=== PATIENT | female | born 1935 | race Caucasian/White ===

== ENCOUNTER 2017-02-19 18:23 | Inpatient (IN) | payer MEDICARE, OTHER ==
[~2017-02-19] VITALS: Ht 167.6 cm; Wt 48.2 kg
[~2017-02-19 18:23] MED LIST: ACET500T68 PO; CARB1TAB2 PO; CHOL10002 PO; ELTA TP; LORA10TA68 PO; MAGN400O7 PO; MULT1TAB52 PO; Metoprolol Tartrate PO; OMEP20TA8 PO; POLY15DR27 OP; RISP1TAB3 PO; Vancomycin Hcl PO; [UNRECOGNIZED DRUG - OTHER] PO
[2017-02-19] MEDS ORDERED: IV NORMAL SALINE 1000ML BAG 1,000 ML IV SCH (19:00)
[2017-02-19 19:06] LABS: BASO % 0 % (0-3); EOS % 0 % (0-3); HEMATOCRIT 38.6 % (36.0-47.0); LYMPH # 0.6 x10^3/uL (1.0-4.8); LYMPH % 3 % (24-48); MEAN CORPUSCULAR HEMOGLOBIN 28 pg (25-35); MEAN CORPUSCULAR HGB CONC 31 g/dL (31-37); MEAN CORPUSCULAR VOLUME 90 fL (79-100); MONO % 7 % (0-9); NEUT % 89 % (31-73); PLATELET COUNT 375 x10^3/uL (140-400); RED BLOOD COUNT 4.31 x10^6/uL (3.50-5.40); RED CELL DISTRIBUTION WIDTH 14.2 % (11.5-14.5); WHITE BLOOD COUNT 16.7 x10^3/uL (4.0-11.0)
[2017-02-19 19:18] LABS: CALCIUM 9.2 mg/dL (8.5-10.1); GFR 23.8
[2017-02-19 19:29] LABS: BILIRUBIN,URINE NEGATIVE (NEG); GLUCOSE,URINE NEGATIVE (NEG); NITRITE,URINE NEGATIVE (NEG); PROTEIN,URINE NEGATIVE (NEG-TRACE); UROBILINOGEN,URINE 0.2 mg/dL (0.2 mg/dL)
[2017-02-19 19:38] LABS: BACTERIA,URINE MOD /HPF (0-FEW); RBC,URINE 0 /HPF (0-2); SQUAMOUS EPITHELIAL CELL,UR MOD /LPF
[2017-02-19 19:45] LABS: OVALOCYTES OCC; PLT ESTIMATE ADEQUATE (ADEQUATE); POLYCHROMASIA SLIGHT
[2017-02-19 19:46] LABS: SCHISTOCYTES OCC
[2017-02-19] MEDS ORDERED: ACETAMINOPHEN 650 MG SUPP.RECT. PR ONE (20:00)
[2017-02-19] MEDS ORDERED: CEFEPIME HCL 1 GM in IV DEXTROSE 5% 100 ML IV ONE (20:15)
[2017-02-19] MEDS ORDERED: VANCOMYCIN 1.25 GM in IV DEXTROSE 5% 250 ML IV ONE (20:15)
[2017-02-19] MEDS ORDERED: IV NORMAL SALINE 1000ML BAG 1,000 ML IV ONE (20:15)
--- NOTE | 2017-02-19 20:22 | PHYS DOC ---
Past Medical History Past Medical History: Anxiety, Dementia, GERD, Hypertension, Other Additional Past Medical Histor: insomnia, Parkinsons, Rhabdomyolsis Past Surgical History: No Surgical History Additional Past Surgical Histo: denies Alcohol Use: None Drug Use: None Adult General Chief Complaint Chief Complaint: SHORTNESS OF BREATH [facility] ED 1-year-old female sent for evaluation of suspected aspiration. Apparently patient gagged on some food while eating after which she was hypoxic and tachypnea. Low-grade fever on arrival Review of Systems Review of Systems Constitutional: Denies fever or chills [] Eyes: Denies change in visual acuity, redness, or eye pain [] HENT: Denies nasal congestion or sore throat [] Respiratory: Denies cough or shortness of breath [] Cardiovascular: No additional information not addressed in HPI [] GI: Denies abdominal pain, nausea, vomiting, bloody stools or diarrhea [] : Denies dysuria or hematuria [] Musculoskeletal: Denies back pain or joint pain [] Integument: Denies rash or skin lesions [] Neurologic: Denies headache, focal weakness or sensory changes [] Endocrine: Denies polyuria or polydipsia [] Current Medications Current Medications Current Medications Medications (Trade) Dose Ordered Sig/Litzy Start Time Stop Time Status Last Admin Dose Admin Acetaminophen (Acetaminophen Supp) 650 mg 1X ONCE 02/19/17 20:00 02/19/17 20:07 DC 02/19/17 20:20 650 MG Cefepime HCl 1 gm/ Dextrose 100 ml @ 200 mls/hr 1X ONCE 02/19/17 20:15 02/19/17 20:44 DC 02/19/17 20:20 200 MLS/HR Clindamycin Phosphate 50 ml @ 100 mls/hr 1X ONCE 02/19/17 20:30 02/20/17 09:10 DC 02/19/17 20:30 100 MLS/HR Sodium Chloride 1,000 ml @ 150 mls/hr 1X ONCE 02/19/17 20:15 02/20/17 02:54 DC 02/19/17 22:09 150 MLS/HR Vancomycin HCl (Vanco Per Pharmacy) 1 each PRN DAILY PRN 02/19/17 20:00 02/20/17 09:10 DC 02/20/17 01:14 1 EACH Vancomycin HCl 1.25 gm/Dextrose 250 ml @ 166.667 mls/hr 1X ONCE 02/19/17 20:15 02/19/17 21:44 DC 02/19/17 21:37 166.667 MLS/HR Allergies Allergies Allergies Coded Allergies Type Severity Reaction Last Updated Verified I S O L A T I O N *CONTACT* Allergy Unknown 01/26/15 Yes No Known Medication Allergies Allergy Unknown 01/26/15 Yes Physical Exam Physical Exam Chronically weak-appearing 81-year-old female no acute distress. Scattered rhonchi Constitutional: Well developed, well nourished, no acute distress, non-toxic appearance. [] HENT: Normocephalic, atraumatic, bilateral external ears normal, oropharynx moist, no oral exudates, nose normal. [] Eyes: PERRLA, EOMI, conjunctiva normal, no discharge. [] Neck: Normal range of motion, no tenderness, supple, no stridor. [] Cardiovascular:Heart rate regular rhythm, no murmur [] Lungs & Thorax: Bilateral breath sounds as above [] Abdomen: Bowel sounds normal, soft, no tenderness, no masses, no pulsatile masses. [] Skin: Warm, dry, no erythema, no rash. [] Back: No tenderness, no CVA tenderness. [] Extremities: No tenderness, no cyanosis, no clubbing, ROM intact, no edema. [] Neurologic: Alert and oriented X 3, normal motor function, normal sensory function, no focal deficits noted. [] Psychologic: Affect normal, judgement normal, mood normal. [] Current Patient Data Vital Signs Vital Signs Date Time Temp Pulse Resp B/P (MAP) Pulse Ox O2 Delivery O2 Flow Rate FiO2 02/19/17 20:30 96 114/56 (75) 94 Nasal Cannula 3.0 02/19/17 18:23 100.6 40 100.6 Lab Values Laboratory Tests Test 02/19/17 18:37 02/19/17 19:20 White Blood Count 16.7 x10^3/uL (4.0-11.0) H Red Blood Count 4.31 x10^6/uL (3.50-5.40) Hemoglobin 12.0 g/dL (12.0-15.5) Hematocrit 38.6 % (36.0-47.0) Mean Corpuscular Volume 90 fL (79-100) Mean Corpuscular Hemoglobin 28 pg (25-35) Mean Corpuscular Hemoglobin Concent 31 g/dL (31-37) Red Cell Distribution Width 14.2 % (11.5-14.5) Platelet Count 375 x10^3/uL (140-400) Neutrophils (%) (Auto) 89 % (31-73) H Lymphocytes (%) (Auto) 3 % (24-48) L Monocytes (%) (Auto) 7 % (0-9) Eosinophils (%) (Auto) 0 % (0-3) Basophils (%) (Auto) 0 % (0-3) Neutrophils # (Auto) 14.9 x10^3uL (1.8-7.7) H Lymphocytes # (Auto) 0.6 x10^3/uL (1.0-4.8) L Monocytes # (Auto) 1.2 x10^3/uL (0.0-1.1) H Eosinophils # (Auto) 0.0 x10^3/uL (0.0-0.7) Basophils # (Auto) 0.0 x10^3/uL (0.0-0.2) Segmented Neutrophils % 94 % (35-66) H Lymphocytes % 4 % (24-48) L Monocytes % 2 % (0-10) Platelet Estimate Adequate (ADEQUATE) Platelet Clumps, EDTA Present Large Platelets Occ Polychromasia Slight Ovalocytes Occ Schistocytes Occ Sodium Level 167 mmol/L (136-145) *H Potassium Level 5.0 mmol/L (3.5-5.1) Chloride Level 124 mmol/L (98-107) H Carbon Dioxide Level 30 mmol/L (21-32) Anion Gap 13 (6-14) Blood Urea Nitrogen 45 mg/dL (7-20) H Creatinine 2.0 mg/dL (0.6-1.0) H Estimated GFR (Cockcroft-Gault) 23.8 Glucose Level 207 mg/dL (70-99) H Lactic Acid Level 3.5 mmol/L (0.4-2.0) H Calcium Level 9.2 mg/dL (8.5-10.1) Troponin I Quantitative < 0.017 ng/mL (0.000-0.055) Thyroid Stimulating Hormone (TSH) 1.078 uIU/mL (0.358-3.74) Urine Color Yellow Urine Clarity Turbid Urine pH 5.0 Urine Specific [place] 1.020 Urine Protein Negative mg/dL (NEG-TRACE) Urine Glucose (UA) Negative mg/dL (NEG) Urine Ketones (Stick) Negative mg/dL (NEG) Urine Blood Negative (NEG) Urine Nitrite Negative (NEG) Urine Bilirubin Negative (NEG) Urine Urobilinogen Dipstick 0.2 mg/dL (0.2 mg/dL) Urine Leukocyte Esterase Trace (NEG) Urine RBC 0 /HPF (0-2) Urine WBC 1-4 /HPF (0-4) Urine Squamous Epithelial Cells Mod /LPF Urine Bacteria Mod /HPF (0-FEW) Laboratory Tests 02/19/17 18:37 Laboratory Tests 02/19/17 18:37 EKG EKG Normal sinus rhythm normal axis no STEMI [] Radiology/Procedures Radiology/Procedures Chest x-ray with left retrocardiac infiltrate interpreted by me. [] Course & Med Decision Making Course & Med Decision Making Pertinent Labs and Imaging studies reviewed. (See chart for details) History signs and symptoms consistent with pneumonia suspected aspiration pneumonia. Patient hemodynamically stable. X-ray with left retrocardiac infiltrate. Blood cultures drawn and an about a coverage for HCHP initiated. Clindamycin also added for aspiration coverage. Case discussed with hospitalist director of graduate admissions regarding inpatient admission to his service. Patient stable on reevaluation prior to admission [] Dragon Disclaimer Dragon Disclaimer This electronic medical record was generated, in whole or in part, using a voice recognition dictation system. Departure Departure Impression: Primary Impression: HCAP (healthcare-associated pneumonia) Disposition: ADMITTED INPATIENT Condition: STABLE Referrals: MIGNON MORALES (PCP) MAU HERNANDEZ MD Feb 19, 2017 20:22
[2017-02-19] MEDS ORDERED: CLINDAMYCIN 600 MG IV ONE (20:30)
[2017-02-19] MEDS ORDERED: CLINDAMYCIN 600MG PREMIX 50 ML IV ONE (20:30)
[2017-02-19] MEDS ORDERED: CEFEPIME HCL 1 GM in IV NORMAL SALINE 50ML 50 ML IV SCH (22:00)
[2017-02-19] MEDS ORDERED: ACETAMINOPHEN 500 MG TABLET PO PRN (22:15)
[2017-02-19] MEDS ORDERED: MAGNESIUM HYDROXIDE 2,400 MG/30 ML ORAL.SUSP. PO PRN (22:15)
--- NOTE | 2017-02-19 22:19 | PDOC1 ---
History and Physical Date of Admission Date of Admission DATE: 02/19/17 TIME: 22:14 Identification/Chief Complaint Chief Complaint SOA, weak, ms change Problems: History of Present Illness History of Present Illness Elderly w female who lives alone presented with SOA. Noted to have Pneumonia, sepsis, SIRS, Severe hyponatremia, ARF, Azotemia and metabolic encephalopathy. DW ER Doc Pt seen and examined Chart reviewed. Orders placed Reviewed home meds Plan is admit with IV NS and IV antibx , Nebs, O2 and Pulm consult Prognosis guarded. May need LTC after dc Dictation is still broken Total time 32 minutes Past Medical History Cardiovascular: HTN CENTRAL NERVOUS SYSTEM: Dementia, Other GI: GERD Psych: Anxiety Past Surgical History Past Surgical History: No pertinent history Family History Family History: Family History Unknown Social History ALCOHOL: none Drugs: None Current Medications Current Medications Current Medications Sodium Chloride 1,000 ml @ 100 mls/hr Q10H IV Last administered on 02/19/17 19 :20; Start 02/19/17 at 19:00; Stop 02/20/17 at 04:59 Cefepime HCl 1 gm/ Sodium Chloride 50 ml @ 100 mls/hr Q8HRS IV ; Start 02/19/17 at 22:00; Status UNV Vancomycin HCl (Vanco Per Pharmacy) 1 each PRN DAILY PRN MC SEE COMMENTS; Start 02/19/17 at 20:00 Acetaminophen (Acetaminophen Supp) 650 mg 1X ONCE ND Last administered on 20:20; Start 02/19/17 at 20:00; Stop 02/19/17 at 20:07; Status DC Vancomycin HCl 1.25 gm/Dextrose 250 ml @ 166.667 mls/hr 1X ONCE IV Last administered on 02/19/17 21:37; Start 02/19/17 at 20:15; Stop 02/19/17 at 21:44; Status DC Cefepime HCl 1 gm/ Dextrose 100 ml @ 200 mls/hr 1X ONCE IV Last administered on 02/19/17 20:20; Start 02/19/17 at 20:15; Stop 02/19/17 at 20:44; Status DC Sodium Chloride 1,000 ml @ 150 mls/hr 1X ONCE IV Last administered on 22:09; Start 02/19/17 at 20:15; Stop 02/20/17 at 02:54 Clindamycin Phosphate 480 ml @ 960 mls/hr 1X ONCE IV ; Start 02/19/17 at 20:30 ; Stop 02/19/17 at 20:59; Status UNV Clindamycin Phosphate 50 ml @ 100 mls/hr 1X ONCE IV Last administered on t 20:30; Start 02/19/17 at 20:30; Stop 02/19/17 at 20:59; Status DC Active Scripts Active [Metoprolol Tartrate] 25 MG Tablet 12.5 Mg PO BID Reported [Elta Cream] 1 TP BID Claritin (Loratadine) 10 Mg Tablet 1 Tab PO DAILY [Culterelle] 1 PO DAILY Vitamin D (Cholecalciferol (Vitamin D3)) 1,000 Unit Tablet 1,000 Unit PO DAILY Milk Of Magnesia (Magnesium Hydroxide) 400 Mg/5 Ml Oral.susp 400 Mg PO PRN PRN Artificial Tears (Polyvinyl Alcohol) 15 Ml Drops 15 Ml OP PRN Acetaminophen 500 Mg Tablet 650 Mg PO PRN Q4HRS PRN Multivitamins (Multivitamin) 1 Each Tablet 1 Tab PO DAILY Omeprazole 20 Mg Tablet.dr 1 Tab PO DAILY Risperidone 1 Mg Tablet 1 Tab PO BID Sinemet 25-100 Mg Tablet (Carbidopa/Levodopa) 1 Each Tablet 1 Tab PO TID Allergies Allergies: Coded Allergies: I S O L A T I O N *CONTACT* (Verified Allergy, Unknown, 01/26/15) mrsa + No Known Medication Allergies (Verified Allergy, Unknown, 01/26/15) Vitals Vitals Vital Signs Date Time Temp Pulse Resp B/P (MAP) Pulse Ox O2 Delivery O2 Flow Rate FiO2 02/19/17 18:23 100.6 108 40 108/53 (71) 91 Nasal Cannula 3.0 100.6 Labs Labs Laboratory Tests Test 02/19/17 18:37 02/19/17 19:20 White Blood Count 16.7 x10^3/uL (4.0-11.0) Red Blood Count 4.31 x10^6/uL (3.50-5.40) Hemoglobin 12.0 g/dL (12.0-15.5) Hematocrit 38.6 % (36.0-47.0) Mean Corpuscular Volume 90 fL (79-100) Mean Corpuscular Hemoglobin 28 pg (25-35) Mean Corpuscular Hemoglobin Concent 31 g/dL (31-37) Red Cell Distribution Width 14.2 % (11.5-14.5) Platelet Count 375 x10^3/uL (140-400) Neutrophils (%) (Auto) 89 % (31-73) Lymphocytes (%) (Auto) 3 % (24-48) Monocytes (%) (Auto) 7 % (0-9) Eosinophils (%) (Auto) 0 % (0-3) Basophils (%) (Auto) 0 % (0-3) Neutrophils # (Auto) 14.9 x10^3uL (1.8-7.7) Lymphocytes # (Auto) 0.6 x10^3/uL (1.0-4.8) Monocytes # (Auto) 1.2 x10^3/uL (0.0-1.1) Eosinophils # (Auto) 0.0 x10^3/uL (0.0-0.7) Basophils # (Auto) 0.0 x10^3/uL (0.0-0.2) Segmented Neutrophils % 94 % (35-66) Lymphocytes % 4 % (24-48) Monocytes % 2 % (0-10) Platelet Estimate Adequate (ADEQUATE) Platelet Clumps, EDTA Present Large Platelets Occ Polychromasia Slight Ovalocytes Occ Schistocytes Occ Sodium Level 167 mmol/L (136-145) Potassium Level 5.0 mmol/L (3.5-5.1) Chloride Level 124 mmol/L (98-107) Carbon Dioxide Level 30 mmol/L (21-32) Anion Gap 13 (6-14) Blood Urea Nitrogen 45 mg/dL (7-20) Creatinine 2.0 mg/dL (0.6-1.0) Estimated GFR (Cockcroft-Gault) 23.8 Glucose Level 207 mg/dL (70-99) Lactic Acid Level 3.5 mmol/L (0.4-2.0) Calcium Level 9.2 mg/dL (8.5-10.1) Troponin I Quantitative < 0.017 ng/mL (0.000-0.055) Thyroid Stimulating Hormone (TSH) 1.078 uIU/mL (0.358-3.74) Urine Color Yellow Urine Clarity Turbid Urine pH 5.0 Urine Specific [place] 1.020 Urine Protein Negative mg/dL (NEG-TRACE) Urine Glucose (UA) Negative mg/dL (NEG) Urine Ketones (Stick) Negative mg/dL (NEG) Urine Blood Negative (NEG) Urine Nitrite Negative (NEG) Urine Bilirubin Negative (NEG) Urine Urobilinogen Dipstick 0.2 mg/dL (0.2 mg/dL) Urine Leukocyte Esterase Trace (NEG) Urine RBC 0 /HPF (0-2) Urine WBC 1-4 /HPF (0-4) Urine Squamous Epithelial Cells Mod /LPF Urine Bacteria Mod /HPF (0-FEW) Laboratory Tests Test 02/19/17 18:37 02/19/17 19:20 White Blood Count 16.7 x10^3/uL (4.0-11.0) Red Blood Count 4.31 x10^6/uL (3.50-5.40) Hemoglobin 12.0 g/dL (12.0-15.5) Hematocrit 38.6 % (36.0-47.0) Mean Corpuscular Volume 90 fL (79-100) Mean Corpuscular Hemoglobin 28 pg (25-35) Mean Corpuscular Hemoglobin Concent 31 g/dL (31-37) Red Cell Distribution Width 14.2 % (11.5-14.5) Platelet Count 375 x10^3/uL (140-400) Neutrophils (%) (Auto) 89 % (31-73) Lymphocytes (%) (Auto) 3 % (24-48) Monocytes (%) (Auto) 7 % (0-9) Eosinophils (%) (Auto) 0 % (0-3) Basophils (%) (Auto) 0 % (0-3) Neutrophils # (Auto) 14.9 x10^3uL (1.8-7.7) Lymphocytes # (Auto) 0.6 x10^3/uL (1.0-4.8) Monocytes # (Auto) 1.2 x10^3/uL (0.0-1.1) Eosinophils # (Auto) 0.0 x10^3/uL (0.0-0.7) Basophils # (Auto) 0.0 x10^3/uL (0.0-0.2) Segmented Neutrophils % 94 % (35-66) Lymphocytes % 4 % (24-48) Monocytes % 2 % (0-10) Platelet Estimate Adequate (ADEQUATE) Platelet Clumps, EDTA Present Large Platelets Occ Polychromasia Slight Ovalocytes Occ Schistocytes Occ Sodium Level 167 mmol/L (136-145) Potassium Level 5.0 mmol/L (3.5-5.1) Chloride Level 124 mmol/L (98-107) Carbon Dioxide Level 30 mmol/L (21-32) Anion Gap 13 (6-14) Blood Urea Nitrogen 45 mg/dL (7-20) Creatinine 2.0 mg/dL (0.6-1.0) Estimated GFR (Cockcroft-Gault) 23.8 Glucose Level 207 mg/dL (70-99) Lactic Acid Level 3.5 mmol/L (0.4-2.0) Calcium Level 9.2 mg/dL (8.5-10.1) Troponin I Quantitative < 0.017 ng/mL (0.000-0.055) Thyroid Stimulating Hormone (TSH) 1.078 uIU/mL (0.358-3.74) Urine Color Yellow Urine Clarity Turbid Urine pH 5.0 Urine Specific [place] 1.020 Urine Protein Negative mg/dL (NEG-TRACE) Urine Glucose (UA) Negative mg/dL (NEG) Urine Ketones (Stick) Negative mg/dL (NEG) Urine Blood Negative (NEG) Urine Nitrite Negative (NEG) Urine Bilirubin Negative (NEG) Urine Urobilinogen Dipstick 0.2 mg/dL (0.2 mg/dL) Urine Leukocyte Esterase Trace (NEG) Urine RBC 0 /HPF (0-2) Urine WBC 1-4 /HPF (0-4) Urine Squamous Epithelial Cells Mod /LPF Urine Bacteria Mod /HPF (0-FEW) VTE Prophylaxis Ordered VTE Prophylaxis Devices: Yes VTE Pharmacological Prophylaxi: Yes TANG CALI III DO Feb 19, 2017 22:19
[2017-02-19 23:30] VITALS: BP 115/53
[2017-02-20] MEDS: VANCOMYCIN PER PHARMACY MC PRN ×2 (01:13→01:14)
[2017-02-20] MEDS ORDERED: POLY17PO29 PO (03:05)
[2017-02-20] MEDS ORDERED: METO25TA4 PO (03:05)
[2017-02-20] MEDS ORDERED: RISP0.5T24 PO (03:05)
[2017-02-20 03:35] VITALS: BP 107/41
[2017-02-20 05:45] LABS: BASO % 0 % (0-3); EOS % 0 % (0-3); HEMATOCRIT 30.5 % (36.0-47.0); HEMOGLOBIN 9.7 g/dL (12.0-15.5); LYMPH # 1.2 x10^3/uL (1.0-4.8); LYMPH % 12 % (24-48); MEAN CORPUSCULAR HEMOGLOBIN 28 pg (25-35); MEAN CORPUSCULAR HGB CONC 32 g/dL (31-37); MEAN CORPUSCULAR VOLUME 88 fL (79-100); MONO % 11 % (0-9); NEUT % 77 % (31-73); PLATELET COUNT 254 x10^3/uL (140-400); RED BLOOD COUNT 3.47 x10^6/uL (3.50-5.40); RED CELL DISTRIBUTION WIDTH 14.1 % (11.5-14.5); WHITE BLOOD COUNT 10.5 x10^3/uL (4.0-11.0)
[2017-02-20 05:57] LABS: CALCIUM 7.6 mg/dL (8.5-10.1); CREATININE 1.3 mg/dL (0.6-1.0); GFR 39.1
--- NOTE | 2017-02-20 06:21 | EKG ---
[facility] [address] [place] [address] Test Date: 2017-02-19 Test Time: 18:34:04 Pat Name: MARGIE BISWAS Department: Room: Gender: F Disability Attorney: : 1935 Requested By: MAU HERNANDEZ Order Number: [id number] Reading MD: Measurements Intervals [place] Rate: 107 P: 45 UT: 112 QRS: -34 QRSD: 66 T: 24 QT: 314 QTc: 424 Interpretive Statements SINUS TACHYCARDIA LEFT ATRIAL ABNORMALITY ABNORMAL LEFT AXIS DEVIATION LEFT ANTERIOR FASCICULAR BLOCK RI6.01 Unconfirmed report No previous ECG available for comparison
[2017-02-20] MEDS: IV 1/2 NORMAL SALINE 1,000 ML IV SCH ×2 (06:30→16:30)
[2017-02-20 07:00] VITALS: BP 103/45
[2017-02-20] MEDS: PANTOPRAZOLE 40 MG TABLET.DR. PO SCH (07:30)
--- NOTE | 2017-02-20 08:27 | PDOC2 ---
CONSULT Date of Consult Date of Consult DATE: 02/20/17 TIME: 08:21 Reason for Consult Reason for Consult: ^Na and CHANDU Referring Physician Referring Physician: Dr perez Identification/Chief Complaint Chief Complaint SOB per ER Note Problems: Source Source: Chart review, Patient History of Present Illness Reason for Visit: ^Na - onset: unkonwn but presumed recent, Severity: enough to presumably contribute to AMS: worsened by Pn/ Illness and poor PO itnake: Location: labs CHANDU: onset: unkonwn but presumed recent; Severity: improving; improved by IVF; worsened by Pn/ Illness and poor PO itnake: Baseline creat was 0.9 in 2014 Lacitic Acidosis - POA, onset acute; improve with vol repletion SIRS - with Presumed Pn as noted on CXR, Assowith AMS and SOB Past Medical History Cardiovascular: HTN CENTRAL NERVOUS SYSTEM: Dementia, Other GI: GERD Psych: Anxiety Past Surgical History Past Surgical History: No pertinent history Family History Family History: Family History Unknown Social History ALCOHOL: none Drugs: None Lives: Shelter Domestic Violence: Neg Current Medications Current Medications Current Medications Sodium Chloride 1,000 ml @ 100 mls/hr Q10H IV Last administered on 02/19/17 19 :20; Start 02/19/17 at 19:00; Stop 02/20/17 at 04:59; Status DC Cefepime HCl 1 gm/ Sodium Chloride 50 ml @ 100 mls/hr Q8HRS IV ; Start 02/19/17 at 22:00; Status UNV Vancomycin HCl (Vanco Per Pharmacy) 1 each PRN DAILY PRN MC SEE COMMENTS Last administered on 02/20/17 01:14; Start 02/19/17 at 20:00 Acetaminophen (Acetaminophen Supp) 650 mg 1X ONCE ME Last administered on 20:20; Start 02/19/17 at 20:00; Stop 02/19/17 at 20:07; Status DC Vancomycin HCl 1.25 gm/Dextrose 250 ml @ 166.667 mls/hr 1X ONCE IV Last administered on 02/19/17 21:37; Start 02/19/17 at 20:15; Stop 02/19/17 at 21:44; Status DC Cefepime HCl 1 gm/ Dextrose 100 ml @ 200 mls/hr 1X ONCE IV Last administered on 7/6/17at 20:20; Start 02/19/17 at 20:15; Stop 02/19/17 at 20:44; Status DC Sodium Chloride 1,000 ml @ 150 mls/hr 1X ONCE IV Last administered on 22:09; Start 02/19/17 at 20:15; Stop 02/20/17 at 02:54; Status DC Clindamycin Phosphate 480 ml @ 960 mls/hr 1X ONCE IV ; Start 02/19/17 at 20:30 ; Stop 02/19/17 at 20:59; Status UNV Clindamycin Phosphate 50 ml @ 100 mls/hr 1X ONCE IV Last administered on 20:30; Start 02/19/17 at 20:30; Stop 02/19/17 at 20:59; Status DC Acetaminophen (Tylenol) 650 mg PRN Q4HRS PRN PO MILD PAIN; Start 02/19/17 at 22: 15 Carbidopa/Levodopa (Sinemet 25/100) 1 tab TID PO ; Start 02/20/17 at 09:00 Vitamin D (Vitamin D3) 1,000 unit DAILY PO ; Start 02/20/17 at 09:00 Magnesium Hydroxide (Milk Of Magnesia) 400 mg PRN DAILY PRN PO CONSTIPATION; Start 02/19/17 at 22:15 Risperidone (RisperDAL) 1 mg BID PO ; Start 02/20/17 at 09:00 Cetirizine HCl (ZyrTEC) 10 mg DAILY PO ; Start 02/20/17 at 09:00 Multivitamins (Thera M Plus) 1 tab DAILY PO ; Start 02/20/17 at 09:00 Pantoprazole Sodium (Protonix) 40 mg DAILYAC PO ; Start 02/20/17 at 07:30 Metoprolol Tartrate (Lopressor) 12.5 mg BID PO ; Start 02/20/17 at 09:00 Vancomycin HCl 750 mg/Dextrose 250 ml @ 250 mls/hr Q48H IV ; Start 02/21/17 at 21:00 Vancomycin HCl 1 each 1X ONCE MC ; Start 02/23/17 at 20:30; Stop 02/23/17 at 20 :31 Cefepime HCl 1 gm/ Dextrose 100 ml @ 100 mls/hr Q24H IV ; Start 02/20/17 at 20: 00 Sodium Chloride 1,000 ml @ 100 mls/hr Q10H IV ; Start 02/20/17 at 06:30 Active Scripts Active Reported Metoprolol Tartrate 25 Mg Tablet 12.5 Mg PO BID Risperdal (Risperidone) 0.5 Mg Tablet 0.5 Mg PO DAILY Miralax (Polyethylene Glycol 3350) 17 Gm Powd.pack 1 Pkt PO DAILY Vitamin D (Cholecalciferol (Vitamin D3)) 1,000 Unit Tablet 1,000 Unit PO DAILY Milk Of Magnesia (Magnesium Hydroxide) 400 Mg/5 Ml Oral.susp 400 Mg PO PRN PRN Artificial Tears (Polyvinyl Alcohol) 15 Ml Drops 2 Drop OP PRN Q4HRS PRN Acetaminophen 500 Mg Tablet 650 Mg PO PRN Q4HRS PRN Multivitamins (Multivitamin) 1 Each Tablet 1 Tab PO DAILY Risperidone 1 Mg Tablet 1 Tab PO HS Sinemet 25-100 Mg Tablet (Carbidopa/Levodopa) 1 Each Tablet 1 Tab PO TID Allergies Allergies: Coded Allergies: I S O L A T I O N *CONTACT* (Verified Allergy, Unknown, 01/26/15) mrsa + No Known Medication Allergies (Verified Allergy, Unknown, 01/26/15) ROS Review of System Pt denies SOB, Cough or pain. Other ROS are difficult to obtain from pt due to underlying dementia and AMS Physical Exam Physical Exam General Appearance: Awake Alert Oriented x 3 In no Distress Eyes: VIsion Unchanged Conjunctiva Normal EN: No EN Drainage Mucous Memb. dryish Neck: no JVD no JVP Supple no Thyromegaly CVS: S1 S2 no Murmur No Gallop No Rub no Edema Resp: no audible Rales no Rhonchi no Acc. Muscle use GI: BAS +ve NO Bruit Non Tender Non Distended : no CVA tenderness; no Suprapubic Tenderness SKIN: no Rashes Breast Exam deferred Mu.Sk: Difficult to assess ROM min Muscle Atrophy Heme: Unable to palpate Obvious LAD no palp Splenomegaly NEURO: Unable to assess due to underlying dementia and AMS Psych: Unable to assess due to underlying dementia and AMS Vital Signs Vital Signs Date Time Temp Pulse Resp B/P (MAP) Pulse Ox O2 Delivery O2 Flow Rate FiO2 02/20/17 07:00 98.4 71 22 103/45 (64) 94 Nasal Cannula 3.0 98.4 Assessment & Plan CHANDU - suspect due to Dehydration now better ^Na - Hydration as ordered Dehydration - IVF/PPN as ordered Presumed Malnutrition and Poor PO intake - PPN for now Lowish priyanka - W/up as ordered Lactic Acidemia - presumed due to hypoperfusion from Hypovolemia - improved with IVF Anemia: chekc Iron; hold off on Epogen for now. HTN: (no documented hypotension) Current BP meds reviewed. See orders for changes. Febrile illness - Await ID eval - ? SIRS OA - now resolved; UA looks clean Discussed Plan of Care and prognosis etc. at length with other care providers Labs Labs Laboratory Tests Test 02/19/17 18:37 02/19/17 19:20 02/20/17 01:10 02/20/17 05:25 White Blood Count 16.7 x10^3/uL (4.0-11.0) 10.5 x10^3/uL (4.0-11.0) Red Blood Count 4.31 x10^6/uL (3.50-5.40) 3.47 x10^6/uL (3.50-5.40) Hemoglobin 12.0 g/dL (12.0-15.5) 9.7 g/dL (12.0-15.5) Hematocrit 38.6 % (36.0-47.0) 30.5 % (36.0-47.0) Mean Corpuscular Volume 90 fL (79-100) 88 fL (79-100) Mean Corpuscular Hemoglobin 28 pg (25-35) 28 pg (25-35) Mean Corpuscular Hemoglobin Concent 31 g/dL (31-37) 32 g/dL (31-37) Red Cell Distribution Width 14.2 % (11.5-14.5) 14.1 % (11.5-14.5) Platelet Count 375 x10^3/uL (140-400) 254 x10^3/uL (140-400) Neutrophils (%) (Auto) 89 % (31-73) 77 % (31-73) Lymphocytes (%) (Auto) 3 % (24-48) 12 % (24-48) Monocytes (%) (Auto) 7 % (0-9) 11 % (0-9) Eosinophils (%) (Auto) 0 % (0-3) 0 % (0-3) Basophils (%) (Auto) 0 % (0-3) 0 % (0-3) Neutrophils # (Auto) 14.9 x10^3uL (1.8-7.7) 8.1 x10^3uL (1.8-7.7) Lymphocytes # (Auto) 0.6 x10^3/uL (1.0-4.8) 1.2 x10^3/uL (1.0-4.8) Monocytes # (Auto) 1.2 x10^3/uL (0.0-1.1) 1.1 x10^3/uL (0.0-1.1) Eosinophils # (Auto) 0.0 x10^3/uL (0.0-0.7) 0.0 x10^3/uL (0.0-0.7) Basophils # (Auto) 0.0 x10^3/uL (0.0-0.2) 0.0 x10^3/uL (0.0-0.2) Segmented Neutrophils % 94 % (35-66) Lymphocytes % 4 % (24-48) Monocytes % 2 % (0-10) Platelet Estimate Adequate (ADEQUATE) Platelet Clumps, EDTA Present Large Platelets Occ Polychromasia Slight Ovalocytes Occ Schistocytes Occ Sodium Level 167 mmol/L (136-145) 167 mmol/L (136-145) Potassium Level 5.0 mmol/L (3.5-5.1) 4.0 mmol/L (3.5-5.1) Chloride Level 124 mmol/L (98-107) 130 mmol/L (98-107) Carbon Dioxide Level 30 mmol/L (21-32) 28 mmol/L (21-32) Anion Gap 13 (6-14) 9 (6-14) Blood Urea Nitrogen 45 mg/dL (7-20) 39 mg/dL (7-20) Creatinine 2.0 mg/dL (0.6-1.0) 1.3 mg/dL (0.6-1.0) Estimated GFR (Cockcroft-Gault) 23.8 39.1 Glucose Level 207 mg/dL (70-99) 95 mg/dL (70-99) Lactic Acid Level 3.5 mmol/L (0.4-2.0) 0.6 mmol/L (0.4-2.0) Calcium Level 9.2 mg/dL (8.5-10.1) 7.6 mg/dL (8.5-10.1) Troponin I Quantitative < 0.017 ng/mL (0.000-0.055) Thyroid Stimulating Hormone (TSH) 1.078 uIU/mL (0.358-3.74) Urine Color Yellow Urine Clarity Turbid Urine pH 5.0 Urine Specific [place] 1.020 Urine Protein Negative mg/dL (NEG-TRACE) Urine Glucose (UA) Negative mg/dL (NEG) Urine Ketones (Stick) Negative mg/dL (NEG) Urine Blood Negative (NEG) Urine Nitrite Negative (NEG) Urine Bilirubin Negative (NEG) Urine Urobilinogen Dipstick 0.2 mg/dL (0.2 mg/dL) Urine Leukocyte Esterase Trace (NEG) Urine RBC 0 /HPF (0-2) Urine WBC 1-4 /HPF (0-4) Urine Squamous Epithelial Cells Mod /LPF Urine Bacteria Mod /HPF (0-FEW) Laboratory Tests Test 02/19/17 18:37 02/19/17 19:20 02/20/17 01:10 02/20/17 05:25 White Blood Count 16.7 x10^3/uL (4.0-11.0) 10.5 x10^3/uL (4.0-11.0) Red Blood Count 4.31 x10^6/uL (3.50-5.40) 3.47 x10^6/uL (3.50-5.40) Hemoglobin 12.0 g/dL (12.0-15.5) 9.7 g/dL (12.0-15.5) Hematocrit 38.6 % (36.0-47.0) 30.5 % (36.0-47.0) Mean Corpuscular Volume 90 fL (79-100) 88 fL (79-100) Mean Corpuscular Hemoglobin 28 pg (25-35) 28 pg (25-35) Mean Corpuscular Hemoglobin Concent 31 g/dL (31-37) 32 g/dL (31-37) Red Cell Distribution Width 14.2 % (11.5-14.5) 14.1 % (11.5-14.5) Platelet Count 375 x10^3/uL (140-400) 254 x10^3/uL (140-400) Neutrophils (%) (Auto) 89 % (31-73) 77 % (31-73) Lymphocytes (%) (Auto) 3 % (24-48) 12 % (24-48) Monocytes (%) (Auto) 7 % (0-9) 11 % (0-9) Eosinophils (%) (Auto) 0 % (0-3) 0 % (0-3) Basophils (%) (Auto) 0 % (0-3) 0 % (0-3) Neutrophils # (Auto) 14.9 x10^3uL (1.8-7.7) 8.1 x10^3uL (1.8-7.7) Lymphocytes # (Auto) 0.6 x10^3/uL (1.0-4.8) 1.2 x10^3/uL (1.0-4.8) Monocytes # (Auto) 1.2 x10^3/uL (0.0-1.1) 1.1 x10^3/uL (0.0-1.1) Eosinophils # (Auto) 0.0 x10^3/uL (0.0-0.7) 0.0 x10^3/uL (0.0-0.7) Basophils # (Auto) 0.0 x10^3/uL (0.0-0.2) 0.0 x10^3/uL (0.0-0.2) Segmented Neutrophils % 94 % (35-66) Lymphocytes % 4 % (24-48) Monocytes % 2 % (0-10) Platelet Estimate Adequate (ADEQUATE) Platelet Clumps, EDTA Present Large Platelets Occ Polychromasia Slight Ovalocytes Occ Schistocytes Occ Sodium Level 167 mmol/L (136-145) 167 mmol/L (136-145) Potassium Level 5.0 mmol/L (3.5-5.1) 4.0 mmol/L (3.5-5.1) Chloride Level 124 mmol/L (98-107) 130 mmol/L (98-107) Carbon Dioxide Level 30 mmol/L (21-32) 28 mmol/L (21-32) Anion Gap 13 (6-14) 9 (6-14) Blood Urea Nitrogen 45 mg/dL (7-20) 39 mg/dL (7-20) Creatinine 2.0 mg/dL (0.6-1.0) 1.3 mg/dL (0.6-1.0) Estimated GFR (Cockcroft-Gault) 23.8 39.1 Glucose Level 207 mg/dL (70-99) 95 mg/dL (70-99) Lactic Acid Level 3.5 mmol/L (0.4-2.0) 0.6 mmol/L (0.4-2.0) Calcium Level 9.2 mg/dL (8.5-10.1) 7.6 mg/dL (8.5-10.1) Troponin I Quantitative < 0.017 ng/mL (0.000-0.055) Thyroid Stimulating Hormone (TSH) 1.078 uIU/mL (0.358-3.74) Urine Color Yellow Urine Clarity Turbid Urine pH 5.0 Urine Specific [place] 1.020 Urine Protein Negative mg/dL (NEG-TRACE) Urine Glucose (UA) Negative mg/dL (NEG) Urine Ketones (Stick) Negative mg/dL (NEG) Urine Blood Negative (NEG) Urine Nitrite Negative (NEG) Urine Bilirubin Negative (NEG) Urine Urobilinogen Dipstick 0.2 mg/dL (0.2 mg/dL) Urine Leukocyte Esterase Trace (NEG) Urine RBC 0 /HPF (0-2) Urine WBC 1-4 /HPF (0-4) Urine Squamous Epithelial Cells Mod /LPF Urine Bacteria Mod /HPF (0-FEW) YUN BRUSH MD Feb 20, 2017 08:27
[2017-02-20] MEDS: risperiDONE 1 MG TABLET. PO SCH ×2 (09:00→21:00)
[2017-02-20] MEDS: METOPROLOL TART IMMED RELEASE 25 MG TABLET. PO SCH ×2 (09:00→21:00)
[2017-02-20] MEDS ORDERED: MAGNESIUM SULFATE 2GM 50 ML IV PRN (09:00)
[2017-02-20] MEDS ORDERED: POTASSIUM PHOSPHATE DIBASIC 13.6 MMOL in IV NORMAL SALINE 250ML 250 ML IV PRN (09:00)
[2017-02-20] MEDS: MULTIVITAMIN with MINERAL TABLET. PO SCH (09:00)
[2017-02-20] MEDS: CHOLECALCIFEROL (VITAMIN D3) 1,000 UNIT TABLET PO SCH (09:00)
[2017-02-20] MEDS: CARBIDOPA/LEVODOPA 25/100MG TABLET PO SCH ×3 (09:00→21:00)
[2017-02-20] MEDS: CETIRIZINE HCL 10 MG TABLET. PO SCH (09:00)
--- NOTE | 2017-02-20 09:10 | PDOC2 ---
IM Consult Referring physician Dr Alejo, for leukocytosis and ? pneumonia Date of Admission DATE: 02/20/17 TIME: 09:01 Chief Complaint Chief Complaint pt is a [facility] pt, who was send in for change in MS and sob pt is somnolent, unable to provide any information, was found to be very dehydrated, hypernatremia, ARF, leukocytosis Problems: Past Medical History Cardiovascular: HTN CENTRAL NERVOUS SYSTEM: Dementia, Other GI: GERD Psych: Anxiety Renal/: Chronic renal insuff Past Surgical History Past Surgical History: No pertinent history Past Family History Family History: Family History Unknown Past Social History [facility] resident, total care Review of Symptoms Review of Symptoms ROS unable to do Medications Current Medications Acetaminophen (Acetaminophen Supp) 650 mg 1X ONCE ID Last administered on 20:20; Start 02/19/17 at 20:00; Stop 02/19/17 at 20:07; Status DC Acetaminophen (Tylenol) 650 mg PRN Q4HRS PRN PO MILD PAIN; Start 02/19/17 at 22: 15 Amino Acids/ Glycerin/ Electrolytes 1,000 ml @ 80 mls/hr [id number] IV ; Start 02/20/17 at 09:00 Carbidopa/Levodopa (Sinemet 25/100) 1 tab TID PO ; Start 02/20/17 at 09:00 Cefepime HCl 1 gm/ Dextrose 100 ml @ 100 mls/hr Q24H IV ; Start 02/20/17 at 20: 00 Cefepime HCl 1 gm/ Dextrose 100 ml @ 200 mls/hr 1X ONCE IV Last administered on 02/19/17 20:20; Start 02/19/17 at 20:15; Stop 02/19/17 at 20:44; Status DC Cefepime HCl 1 gm/ Sodium Chloride 50 ml @ 100 mls/hr Q8HRS IV ; Start 02/19/17 at 22:00; Status UNV Cetirizine HCl (ZyrTEC) 10 mg DAILY PO ; Start 02/20/17 at 09:00 Clindamycin Phosphate 50 ml @ 100 mls/hr 1X ONCE IV Last administered on 20:30; Start 02/19/17 at 20:30; Stop 02/19/17 at 20:59; Status DC Clindamycin Phosphate 480 ml @ 960 mls/hr 1X ONCE IV ; Start 02/19/17 at 20:30 ; Stop 02/19/17 at 20:59; Status UNV Magnesium Hydroxide (Milk Of Magnesia) 400 mg PRN DAILY PRN PO CONSTIPATION; Start 02/19/17 at 22:15 Magnesium Sulfate/ Dextrose 50 ml @ 25 mls/hr PRN DAILY PRN IV for Mag < 1.7 on am labs; Start 02/20/17 at 09:00 Metoprolol Tartrate (Lopressor) 12.5 mg BID PO ; Start 02/20/17 at 09:00 Multivitamins (Thera M Plus) 1 tab DAILY PO ; Start 02/20/17 at 09:00 Pantoprazole Sodium (Protonix) 40 mg DAILYAC PO ; Start 02/20/17 at 07:30 Potassium Phosphate 13.6 mmol/Sodium Chloride 254.5333 ml @ 127.... PRN Q2HRS PRN IV for Phos < WNL; Start 02/20/17 at 09:00 Risperidone (RisperDAL) 1 mg BID PO ; Start 02/20/17 at 09:00 Sodium Chloride 1,000 ml @ 100 mls/hr Q10H IV Last administered on 02/19/17 19 :20; Start 02/19/17 at 19:00; Stop 02/20/17 at 04:59; Status DC Sodium Chloride 1,000 ml @ 100 mls/hr Q10H IV ; Start 02/20/17 at 06:30 Sodium Chloride 1,000 ml @ 150 mls/hr 1X ONCE IV Last administered on 22:09; Start 02/19/17 at 20:15; Stop 02/20/17 at 02:54; Status DC Vancomycin HCl 1 each 1X ONCE MC ; Start 02/23/17 at 20:30; Stop 02/23/17 at 20 :31 Vancomycin HCl (Vanco Per Pharmacy) 1 each PRN DAILY PRN MC SEE COMMENTS Last administered on 02/20/17 01:14; Start 02/19/17 at 20:00 Vancomycin HCl 1.25 gm/Dextrose 250 ml @ 166.667 mls/hr 1X ONCE IV Last administered on 02/19/17 21:37; Start 02/19/17 at 20:15; Stop 02/19/17 at 21:44; Status DC Vancomycin HCl 750 mg/Dextrose 250 ml @ 250 mls/hr Q48H IV ; Start 02/21/17 at 21:00 Vitamin D (Vitamin D3) 1,000 unit DAILY PO ; Start 02/20/17 at 09:00 Allergy Allergies Coded Allergies Type Severity Reaction Last Updated Verified I S O L A T I O N *CONTACT* Allergy Unknown 01/26/15 Yes No Known Medication Allergies Allergy Unknown 01/26/15 Yes Physical Exam Physical Exam General appearance - lethargic, unresponsive, Mental Status - occassionally arousable as per RN, to me , did not respond Head - normal Chest - clear to auscultation, no wheezes, rales or rhonchi, symmetric air entry Heart - S1 and S2 normal Abdomen - soft, nontender, nondistended, no masses or organomegaly Neurological - alert and oriented Musculoskeletal - no muscular tenderness noted Extremities - no pedal edema Skin - warm and dry Labs Laboratory Tests Test 02/19/17 18:37 02/19/17 19:20 02/20/17 01:10 02/20/17 05:25 White Blood Count 16.7 x10^3/uL (4.0-11.0) 10.5 x10^3/uL (4.0-11.0) Red Blood Count 4.31 x10^6/uL (3.50-5.40) 3.47 x10^6/uL (3.50-5.40) Hemoglobin 12.0 g/dL (12.0-15.5) 9.7 g/dL (12.0-15.5) Hematocrit 38.6 % (36.0-47.0) 30.5 % (36.0-47.0) Mean Corpuscular Volume 90 fL (79-100) 88 fL (79-100) Mean Corpuscular Hemoglobin 28 pg (25-35) 28 pg (25-35) Mean Corpuscular Hemoglobin Concent 31 g/dL (31-37) 32 g/dL (31-37) Red Cell Distribution Width 14.2 % (11.5-14.5) 14.1 % (11.5-14.5) Platelet Count 375 x10^3/uL (140-400) 254 x10^3/uL (140-400) Neutrophils (%) (Auto) 89 % (31-73) 77 % (31-73) Lymphocytes (%) (Auto) 3 % (24-48) 12 % (24-48) Monocytes (%) (Auto) 7 % (0-9) 11 % (0-9) Eosinophils (%) (Auto) 0 % (0-3) 0 % (0-3) Basophils (%) (Auto) 0 % (0-3) 0 % (0-3) Neutrophils # (Auto) 14.9 x10^3uL (1.8-7.7) 8.1 x10^3uL (1.8-7.7) Lymphocytes # (Auto) 0.6 x10^3/uL (1.0-4.8) 1.2 x10^3/uL (1.0-4.8) Monocytes # (Auto) 1.2 x10^3/uL (0.0-1.1) 1.1 x10^3/uL (0.0-1.1) Eosinophils # (Auto) 0.0 x10^3/uL (0.0-0.7) 0.0 x10^3/uL (0.0-0.7) Basophils # (Auto) 0.0 x10^3/uL (0.0-0.2) 0.0 x10^3/uL (0.0-0.2) Segmented Neutrophils % 94 % (35-66) Lymphocytes % 4 % (24-48) Monocytes % 2 % (0-10) Platelet Estimate Adequate (ADEQUATE) Platelet Clumps, EDTA Present Large Platelets Occ Polychromasia Slight Ovalocytes Occ Schistocytes Occ Sodium Level 167 mmol/L (136-145) 167 mmol/L (136-145) Potassium Level 5.0 mmol/L (3.5-5.1) 4.0 mmol/L (3.5-5.1) Chloride Level 124 mmol/L (98-107) 130 mmol/L (98-107) Carbon Dioxide Level 30 mmol/L (21-32) 28 mmol/L (21-32) Anion Gap 13 (6-14) 9 (6-14) Blood Urea Nitrogen 45 mg/dL (7-20) 39 mg/dL (7-20) Creatinine 2.0 mg/dL (0.6-1.0) 1.3 mg/dL (0.6-1.0) Estimated GFR (Cockcroft-Gault) 23.8 39.1 Glucose Level 207 mg/dL (70-99) 95 mg/dL (70-99) Lactic Acid Level 3.5 mmol/L (0.4-2.0) 0.6 mmol/L (0.4-2.0) Calcium Level 9.2 mg/dL (8.5-10.1) 7.6 mg/dL (8.5-10.1) Troponin I Quantitative < 0.017 ng/mL (0.000-0.055) Thyroid Stimulating Hormone (TSH) 1.078 uIU/mL (0.358-3.74) Urine Color Yellow Urine Clarity Turbid Urine pH 5.0 Urine Specific [place] 1.020 Urine Protein Negative mg/dL (NEG-TRACE) Urine Glucose (UA) Negative mg/dL (NEG) Urine Ketones (Stick) Negative mg/dL (NEG) Urine Blood Negative (NEG) Urine Nitrite Negative (NEG) Urine Bilirubin Negative (NEG) Urine Urobilinogen Dipstick 0.2 mg/dL (0.2 mg/dL) Urine Leukocyte Esterase Trace (NEG) Urine RBC 0 /HPF (0-2) Urine WBC 1-4 /HPF (0-4) Urine Squamous Epithelial Cells Mod /LPF Urine Bacteria Mod /HPF (0-FEW) Laboratory Tests Test 02/19/17 18:37 02/19/17 19:20 02/20/17 01:10 02/20/17 05:25 White Blood Count 16.7 x10^3/uL (4.0-11.0) 10.5 x10^3/uL (4.0-11.0) Red Blood Count 4.31 x10^6/uL (3.50-5.40) 3.47 x10^6/uL (3.50-5.40) Hemoglobin 12.0 g/dL (12.0-15.5) 9.7 g/dL (12.0-15.5) Hematocrit 38.6 % (36.0-47.0) 30.5 % (36.0-47.0) Mean Corpuscular Volume 90 fL (79-100) 88 fL (79-100) Mean Corpuscular Hemoglobin 28 pg (25-35) 28 pg (25-35) Mean Corpuscular Hemoglobin Concent 31 g/dL (31-37) 32 g/dL (31-37) Red Cell Distribution Width 14.2 % (11.5-14.5) 14.1 % (11.5-14.5) Platelet Count 375 x10^3/uL (140-400) 254 x10^3/uL (140-400) Neutrophils (%) (Auto) 89 % (31-73) 77 % (31-73) Lymphocytes (%) (Auto) 3 % (24-48) 12 % (24-48) Monocytes (%) (Auto) 7 % (0-9) 11 % (0-9) Eosinophils (%) (Auto) 0 % (0-3) 0 % (0-3) Basophils (%) (Auto) 0 % (0-3) 0 % (0-3) Neutrophils # (Auto) 14.9 x10^3uL (1.8-7.7) 8.1 x10^3uL (1.8-7.7) Lymphocytes # (Auto) 0.6 x10^3/uL (1.0-4.8) 1.2 x10^3/uL (1.0-4.8) Monocytes # (Auto) 1.2 x10^3/uL (0.0-1.1) 1.1 x10^3/uL (0.0-1.1) Eosinophils # (Auto) 0.0 x10^3/uL (0.0-0.7) 0.0 x10^3/uL (0.0-0.7) Basophils # (Auto) 0.0 x10^3/uL (0.0-0.2) 0.0 x10^3/uL (0.0-0.2) Segmented Neutrophils % 94 % (35-66) Lymphocytes % 4 % (24-48) Monocytes % 2 % (0-10) Platelet Estimate Adequate (ADEQUATE) Platelet Clumps, EDTA Present Large Platelets Occ Polychromasia Slight Ovalocytes Occ Schistocytes Occ Sodium Level 167 mmol/L (136-145) 167 mmol/L (136-145) Potassium Level 5.0 mmol/L (3.5-5.1) 4.0 mmol/L (3.5-5.1) Chloride Level 124 mmol/L (98-107) 130 mmol/L (98-107) Carbon Dioxide Level 30 mmol/L (21-32) 28 mmol/L (21-32) Anion Gap 13 (6-14) 9 (6-14) Blood Urea Nitrogen 45 mg/dL (7-20) 39 mg/dL (7-20) Creatinine 2.0 mg/dL (0.6-1.0) 1.3 mg/dL (0.6-1.0) Estimated GFR (Cockcroft-Gault) 23.8 39.1 Glucose Level 207 mg/dL (70-99) 95 mg/dL (70-99) Lactic Acid Level 3.5 mmol/L (0.4-2.0) 0.6 mmol/L (0.4-2.0) Calcium Level 9.2 mg/dL (8.5-10.1) 7.6 mg/dL (8.5-10.1) Troponin I Quantitative < 0.017 ng/mL (0.000-0.055) Thyroid Stimulating Hormone (TSH) 1.078 uIU/mL (0.358-3.74) Urine Color Yellow Urine Clarity Turbid Urine pH 5.0 Urine Specific [place] 1.020 Urine Protein Negative mg/dL (NEG-TRACE) Urine Glucose (UA) Negative mg/dL (NEG) Urine Ketones (Stick) Negative mg/dL (NEG) Urine Blood Negative (NEG) Urine Nitrite Negative (NEG) Urine Bilirubin Negative (NEG) Urine Urobilinogen Dipstick 0.2 mg/dL (0.2 mg/dL) Urine Leukocyte Esterase Trace (NEG) Urine RBC 0 /HPF (0-2) Urine WBC 1-4 /HPF (0-4) Urine Squamous Epithelial Cells Mod /LPF Urine Bacteria Mod /HPF (0-FEW) Vitals Vital Signs Date Time Temp Pulse Resp B/P (MAP) Pulse Ox O2 Delivery O2 Flow Rate FiO2 02/20/17 07:00 98.4 71 22 103/45 (64) 94 Nasal Cannula 3.0 98.4 Assessment Assessment Leukocytosis Fever Encephalopathy Dehydration Hypernatremia Renal failure Dementia Plan Plan d/c vanc cont cefepime supportive care fluids d/w dr Tiana Brush off load QUINTIN BRUSH MD Feb 20, 2017 09:10
--- NOTE | 2017-02-20 09:11 | RAD ---
Portable chest, 02/19/2017: History: Hypoxia, shortness of breath Comparison is made to a study from 07/10/2015. The heart is at the upper limits of normal in size. The pulmonary vascularity is normal. There is mild linear scarring or atelectasis in the right parahilar region. Mild patchy left basilar infiltrate has developed. There is no evidence of pleural fluid or pneumothorax. A moderate thoracic scoliosis may be positional. The bony structures are demineralized. At least one lower thoracic vertebral compression fracture is again noted. IMPRESSION: 1. Mild patchy left basilar infiltrate suggesting pneumonia. 2. Minimal right perihilar scarring and/or atelectasis. Note: The findings were called to personnel in the [facility] ER at 9:08 AM on 02/20/2017.
--- NOTE | 2017-02-20 09:19 | PDOC ---
PROGRESS NOTES Chief Complaint Chief Complaint cc: fever A/P HYPERNATREMIA POSSIBLE PNEUMONIA DEHYDRATION FEVERS MALNUTRITION ALTERED MENTAL STATUS Plan: Patient has been placed on IV hydration and ProcalAmine. Continue current antibiotics and blood cultures pending Patient is severely dehydrated unknown baseline mental status. She appears to be more nourished will continue ProcalAmine and encouraged oral intake. Monitor sodium very closely. Continue antibiotics. Physical therapy and occupational therapy ordered Prognosis guarded. Infectious disease and nephrology has been following. History of Present Illness History of Present Illness She appears very weak and thin built. Patient is a alert but not able to provide good history Very dehydrated and nourished along with unknown baseline mental status. Vitals Vitals Vital Signs Date Time Temp Pulse Resp B/P (MAP) Pulse Ox O2 Delivery O2 Flow Rate FiO2 02/20/17 07:00 98.4 71 22 103/45 (64) 94 Nasal Cannula 3.0 98.4 Physical Exam General: Alert Heart: Normal S1, Normal S2 Lungs: Clear Abdomen: Normal bowel sounds, Soft Extremities: No clubbing Skin: No rashes Labs LABS Laboratory Tests Test 02/19/17 18:37 02/19/17 19:20 02/20/17 01:10 02/20/17 05:25 White Blood Count 16.7 x10^3/uL (4.0-11.0) 10.5 x10^3/uL (4.0-11.0) Red Blood Count 4.31 x10^6/uL (3.50-5.40) 3.47 x10^6/uL (3.50-5.40) Hemoglobin 12.0 g/dL (12.0-15.5) 9.7 g/dL (12.0-15.5) Hematocrit 38.6 % (36.0-47.0) 30.5 % (36.0-47.0) Mean Corpuscular Volume 90 fL (79-100) 88 fL (79-100) Mean Corpuscular Hemoglobin 28 pg (25-35) 28 pg (25-35) Mean Corpuscular Hemoglobin Concent 31 g/dL (31-37) 32 g/dL (31-37) Red Cell Distribution Width 14.2 % (11.5-14.5) 14.1 % (11.5-14.5) Platelet Count 375 x10^3/uL (140-400) 254 x10^3/uL (140-400) Neutrophils (%) (Auto) 89 % (31-73) 77 % (31-73) Lymphocytes (%) (Auto) 3 % (24-48) 12 % (24-48) Monocytes (%) (Auto) 7 % (0-9) 11 % (0-9) Eosinophils (%) (Auto) 0 % (0-3) 0 % (0-3) Basophils (%) (Auto) 0 % (0-3) 0 % (0-3) Neutrophils # (Auto) 14.9 x10^3uL (1.8-7.7) 8.1 x10^3uL (1.8-7.7) Lymphocytes # (Auto) 0.6 x10^3/uL (1.0-4.8) 1.2 x10^3/uL (1.0-4.8) Monocytes # (Auto) 1.2 x10^3/uL (0.0-1.1) 1.1 x10^3/uL (0.0-1.1) Eosinophils # (Auto) 0.0 x10^3/uL (0.0-0.7) 0.0 x10^3/uL (0.0-0.7) Basophils # (Auto) 0.0 x10^3/uL (0.0-0.2) 0.0 x10^3/uL (0.0-0.2) Segmented Neutrophils % 94 % (35-66) Lymphocytes % 4 % (24-48) Monocytes % 2 % (0-10) Platelet Estimate Adequate (ADEQUATE) Platelet Clumps, EDTA Present Large Platelets Occ Polychromasia Slight Ovalocytes Occ Schistocytes Occ Sodium Level 167 mmol/L (136-145) 167 mmol/L (136-145) Potassium Level 5.0 mmol/L (3.5-5.1) 4.0 mmol/L (3.5-5.1) Chloride Level 124 mmol/L (98-107) 130 mmol/L (98-107) Carbon Dioxide Level 30 mmol/L (21-32) 28 mmol/L (21-32) Anion Gap 13 (6-14) 9 (6-14) Blood Urea Nitrogen 45 mg/dL (7-20) 39 mg/dL (7-20) Creatinine 2.0 mg/dL (0.6-1.0) 1.3 mg/dL (0.6-1.0) Estimated GFR (Cockcroft-Gault) 23.8 39.1 Glucose Level 207 mg/dL (70-99) 95 mg/dL (70-99) Lactic Acid Level 3.5 mmol/L (0.4-2.0) 0.6 mmol/L (0.4-2.0) Calcium Level 9.2 mg/dL (8.5-10.1) 7.6 mg/dL (8.5-10.1) Troponin I Quantitative < 0.017 ng/mL (0.000-0.055) Thyroid Stimulating Hormone (TSH) 1.078 uIU/mL (0.358-3.74) Urine Color Yellow Urine Clarity Turbid Urine pH 5.0 Urine Specific [place] 1.020 Urine Protein Negative mg/dL (NEG-TRACE) Urine Glucose (UA) Negative mg/dL (NEG) Urine Ketones (Stick) Negative mg/dL (NEG) Urine Blood Negative (NEG) Urine Nitrite Negative (NEG) Urine Bilirubin Negative (NEG) Urine Urobilinogen Dipstick 0.2 mg/dL (0.2 mg/dL) Urine Leukocyte Esterase Trace (NEG) Urine RBC 0 /HPF (0-2) Urine WBC 1-4 /HPF (0-4) Urine Squamous Epithelial Cells Mod /LPF Urine Bacteria Mod /HPF (0-FEW) Comment Review of Relevant I have reviewed the following items giovanni (where applicable) has been applied. Labs Laboratory Tests Test 02/19/17 18:37 02/19/17 19:20 02/20/17 01:10 02/20/17 05:25 White Blood Count 16.7 x10^3/uL (4.0-11.0) 10.5 x10^3/uL (4.0-11.0) Red Blood Count 4.31 x10^6/uL (3.50-5.40) 3.47 x10^6/uL (3.50-5.40) Hemoglobin 12.0 g/dL (12.0-15.5) 9.7 g/dL (12.0-15.5) Hematocrit 38.6 % (36.0-47.0) 30.5 % (36.0-47.0) Mean Corpuscular Volume 90 fL (79-100) 88 fL (79-100) Mean Corpuscular Hemoglobin 28 pg (25-35) 28 pg (25-35) Mean Corpuscular Hemoglobin Concent 31 g/dL (31-37) 32 g/dL (31-37) Red Cell Distribution Width 14.2 % (11.5-14.5) 14.1 % (11.5-14.5) Platelet Count 375 x10^3/uL (140-400) 254 x10^3/uL (140-400) Neutrophils (%) (Auto) 89 % (31-73) 77 % (31-73) Lymphocytes (%) (Auto) 3 % (24-48) 12 % (24-48) Monocytes (%) (Auto) 7 % (0-9) 11 % (0-9) Eosinophils (%) (Auto) 0 % (0-3) 0 % (0-3) Basophils (%) (Auto) 0 % (0-3) 0 % (0-3) Neutrophils # (Auto) 14.9 x10^3uL (1.8-7.7) 8.1 x10^3uL (1.8-7.7) Lymphocytes # (Auto) 0.6 x10^3/uL (1.0-4.8) 1.2 x10^3/uL (1.0-4.8) Monocytes # (Auto) 1.2 x10^3/uL (0.0-1.1) 1.1 x10^3/uL (0.0-1.1) Eosinophils # (Auto) 0.0 x10^3/uL (0.0-0.7) 0.0 x10^3/uL (0.0-0.7) Basophils # (Auto) 0.0 x10^3/uL (0.0-0.2) 0.0 x10^3/uL (0.0-0.2) Segmented Neutrophils % 94 % (35-66) Lymphocytes % 4 % (24-48) Monocytes % 2 % (0-10) Platelet Estimate Adequate (ADEQUATE) Platelet Clumps, EDTA Present Large Platelets Occ Polychromasia Slight Ovalocytes Occ Schistocytes Occ Sodium Level 167 mmol/L (136-145) 167 mmol/L (136-145) Potassium Level 5.0 mmol/L (3.5-5.1) 4.0 mmol/L (3.5-5.1) Chloride Level 124 mmol/L (98-107) 130 mmol/L (98-107) Carbon Dioxide Level 30 mmol/L (21-32) 28 mmol/L (21-32) Anion Gap 13 (6-14) 9 (6-14) Blood Urea Nitrogen 45 mg/dL (7-20) 39 mg/dL (7-20) Creatinine 2.0 mg/dL (0.6-1.0) 1.3 mg/dL (0.6-1.0) Estimated GFR (Cockcroft-Gault) 23.8 39.1 Glucose Level 207 mg/dL (70-99) 95 mg/dL (70-99) Lactic Acid Level 3.5 mmol/L (0.4-2.0) 0.6 mmol/L (0.4-2.0) Calcium Level 9.2 mg/dL (8.5-10.1) 7.6 mg/dL (8.5-10.1) Troponin I Quantitative < 0.017 ng/mL (0.000-0.055) Thyroid Stimulating Hormone (TSH) 1.078 uIU/mL (0.358-3.74) Urine Color Yellow Urine Clarity Turbid Urine pH 5.0 Urine Specific [place] 1.020 Urine Protein Negative mg/dL (NEG-TRACE) Urine Glucose (UA) Negative mg/dL (NEG) Urine Ketones (Stick) Negative mg/dL (NEG) Urine Blood Negative (NEG) Urine Nitrite Negative (NEG) Urine Bilirubin Negative (NEG) Urine Urobilinogen Dipstick 0.2 mg/dL (0.2 mg/dL) Urine Leukocyte Esterase Trace (NEG) Urine RBC 0 /HPF (0-2) Urine WBC 1-4 /HPF (0-4) Urine Squamous Epithelial Cells Mod /LPF Urine Bacteria Mod /HPF (0-FEW) Laboratory Tests Test 02/19/17 18:37 02/19/17 19:20 02/20/17 01:10 02/20/17 05:25 White Blood Count 16.7 x10^3/uL (4.0-11.0) 10.5 x10^3/uL (4.0-11.0) Red Blood Count 4.31 x10^6/uL (3.50-5.40) 3.47 x10^6/uL (3.50-5.40) Hemoglobin 12.0 g/dL (12.0-15.5) 9.7 g/dL (12.0-15.5) Hematocrit 38.6 % (36.0-47.0) 30.5 % (36.0-47.0) Mean Corpuscular Volume 90 fL (79-100) 88 fL (79-100) Mean Corpuscular Hemoglobin 28 pg (25-35) 28 pg (25-35) Mean Corpuscular Hemoglobin Concent 31 g/dL (31-37) 32 g/dL (31-37) Red Cell Distribution Width 14.2 % (11.5-14.5) 14.1 % (11.5-14.5) Platelet Count 375 x10^3/uL (140-400) 254 x10^3/uL (140-400) Neutrophils (%) (Auto) 89 % (31-73) 77 % (31-73) Lymphocytes (%) (Auto) 3 % (24-48) 12 % (24-48) Monocytes (%) (Auto) 7 % (0-9) 11 % (0-9) Eosinophils (%) (Auto) 0 % (0-3) 0 % (0-3) Basophils (%) (Auto) 0 % (0-3) 0 % (0-3) Neutrophils # (Auto) 14.9 x10^3uL (1.8-7.7) 8.1 x10^3uL (1.8-7.7) Lymphocytes # (Auto) 0.6 x10^3/uL (1.0-4.8) 1.2 x10^3/uL (1.0-4.8) Monocytes # (Auto) 1.2 x10^3/uL (0.0-1.1) 1.1 x10^3/uL (0.0-1.1) Eosinophils # (Auto) 0.0 x10^3/uL (0.0-0.7) 0.0 x10^3/uL (0.0-0.7) Basophils # (Auto) 0.0 x10^3/uL (0.0-0.2) 0.0 x10^3/uL (0.0-0.2) Segmented Neutrophils % 94 % (35-66) Lymphocytes % 4 % (24-48) Monocytes % 2 % (0-10) Platelet Estimate Adequate (ADEQUATE) Platelet Clumps, EDTA Present Large Platelets Occ Polychromasia Slight Ovalocytes Occ Schistocytes Occ Sodium Level 167 mmol/L (136-145) 167 mmol/L (136-145) Potassium Level 5.0 mmol/L (3.5-5.1) 4.0 mmol/L (3.5-5.1) Chloride Level 124 mmol/L (98-107) 130 mmol/L (98-107) Carbon Dioxide Level 30 mmol/L (21-32) 28 mmol/L (21-32) Anion Gap 13 (6-14) 9 (6-14) Blood Urea Nitrogen 45 mg/dL (7-20) 39 mg/dL (7-20) Creatinine 2.0 mg/dL (0.6-1.0) 1.3 mg/dL (0.6-1.0) Estimated GFR (Cockcroft-Gault) 23.8 39.1 Glucose Level 207 mg/dL (70-99) 95 mg/dL (70-99) Lactic Acid Level 3.5 mmol/L (0.4-2.0) 0.6 mmol/L (0.4-2.0) Calcium Level 9.2 mg/dL (8.5-10.1) 7.6 mg/dL (8.5-10.1) Troponin I Quantitative < 0.017 ng/mL (0.000-0.055) Thyroid Stimulating Hormone (TSH) 1.078 uIU/mL (0.358-3.74) Urine Color Yellow Urine Clarity Turbid Urine pH 5.0 Urine Specific [place] 1.020 Urine Protein Negative mg/dL (NEG-TRACE) Urine Glucose (UA) Negative mg/dL (NEG) Urine Ketones (Stick) Negative mg/dL (NEG) Urine Blood Negative (NEG) Urine Nitrite Negative (NEG) Urine Bilirubin Negative (NEG) Urine Urobilinogen Dipstick 0.2 mg/dL (0.2 mg/dL) Urine Leukocyte Esterase Trace (NEG) Urine RBC 0 /HPF (0-2) Urine WBC 1-4 /HPF (0-4) Urine Squamous Epithelial Cells Mod /LPF Urine Bacteria Mod /HPF (0-FEW) Medications Current Medications Sodium Chloride 1,000 ml @ 100 mls/hr Q10H IV Last administered on 02/19/17 19 :20; Start 02/19/17 at 19:00; Stop 02/20/17 at 04:59; Status DC Cefepime HCl 1 gm/ Sodium Chloride 50 ml @ 100 mls/hr Q8HRS IV ; Start 02/19/17 at 22:00; Status UNV Vancomycin HCl (Vanco Per Pharmacy) 1 each PRN DAILY PRN MC SEE COMMENTS Last administered on 02/20/17 01:14; Start 02/19/17 at 20:00; Stop 02/20/17 at 09:10; Status DC Acetaminophen (Acetaminophen Supp) 650 mg 1X ONCE OK Last administered on 20:20; Start 02/19/17 at 20:00; Stop 02/19/17 at 20:07; Status DC Vancomycin HCl 1.25 gm/Dextrose 250 ml @ 166.667 mls/hr 1X ONCE IV Last administered on 02/19/17 21:37; Start 02/19/17 at 20:15; Stop 02/19/17 at 21:44; Status DC Cefepime HCl 1 gm/ Dextrose 100 ml @ 200 mls/hr 1X ONCE IV Last administered on 02/19/17 20:20; Start 02/19/17 at 20:15; Stop 02/19/17 at 20:44; Status DC Sodium Chloride 1,000 ml @ 150 mls/hr 1X ONCE IV Last administered on 22:09; Start 02/19/17 at 20:15; Stop 02/20/17 at 02:54; Status DC Clindamycin Phosphate 480 ml @ 960 mls/hr 1X ONCE IV ; Start 02/19/17 at 20:30 ; Stop 02/19/17 at 20:59; Status UNV Clindamycin Phosphate 50 ml @ 100 mls/hr 1X ONCE IV Last administered on 20:30; Start 02/19/17 at 20:30; Stop 02/20/17 at 09:10; Status DC Acetaminophen (Tylenol) 650 mg PRN Q4HRS PRN PO MILD PAIN; Start 02/19/17 at 22: 15 Carbidopa/Levodopa (Sinemet 25/100) 1 tab TID PO ; Start 02/20/17 at 09:00 Vitamin D (Vitamin D3) 1,000 unit DAILY PO ; Start 02/20/17 at 09:00 Magnesium Hydroxide (Milk Of Magnesia) 400 mg PRN DAILY PRN PO CONSTIPATION; Start 02/19/17 at 22:15 Risperidone (RisperDAL) 1 mg BID PO ; Start 02/20/17 at 09:00 Cetirizine HCl (ZyrTEC) 10 mg DAILY PO ; Start 02/20/17 at 09:00 Multivitamins (Thera M Plus) 1 tab DAILY PO ; Start 02/20/17 at 09:00 Pantoprazole Sodium (Protonix) 40 mg DAILYAC PO ; Start 02/20/17 at 07:30 Metoprolol Tartrate (Lopressor) 12.5 mg BID PO ; Start 02/20/17 at 09:00 Vancomycin HCl 750 mg/Dextrose 250 ml @ 250 mls/hr Q48H IV ; Start 02/21/17 at 21:00; Stop 02/21/17 at 21:00; Status DC Vancomycin HCl 1 each 1X ONCE MC ; Start 02/23/17 at 20:30; Stop 02/23/17 at 20 :30; Status DC Cefepime HCl 1 gm/ Dextrose 100 ml @ 100 mls/hr Q24H IV ; Start 02/20/17 at 20: 00 Sodium Chloride 1,000 ml @ 100 mls/hr Q10H IV ; Start 02/20/17 at 06:30 Amino Acids/ Glycerin/ Electrolytes 1,000 ml @ 80 mls/hr [id number] IV ; Start 02/20/17 at 09:00 Magnesium Sulfate/ Dextrose 50 ml @ 25 mls/hr PRN DAILY PRN IV for Mag < 1.7 on am labs; Start 02/20/17 at 09:00 Potassium Phosphate 13.6 mmol/Sodium Chloride 254.5333 ml @ 127.... PRN Q2HRS PRN IV for Phos < WNL; Start 02/20/17 at 09:00 Active Scripts Active Reported Metoprolol Tartrate 25 Mg Tablet 12.5 Mg PO BID Risperdal (Risperidone) 0.5 Mg Tablet 0.5 Mg PO DAILY Miralax (Polyethylene Glycol 3350) 17 Gm Powd.pack 1 Pkt PO DAILY Vitamin D (Cholecalciferol (Vitamin D3)) 1,000 Unit Tablet 1,000 Unit PO DAILY Milk Of Magnesia (Magnesium Hydroxide) 400 Mg/5 Ml Oral.susp 400 Mg PO PRN PRN Artificial Tears (Polyvinyl Alcohol) 15 Ml Drops 2 Drop OP PRN Q4HRS PRN Acetaminophen 500 Mg Tablet 650 Mg PO PRN Q4HRS PRN Multivitamins (Multivitamin) 1 Each Tablet 1 Tab PO DAILY Risperidone 1 Mg Tablet 1 Tab PO HS Sinemet 25-100 Mg Tablet (Carbidopa/Levodopa) 1 Each Tablet 1 Tab PO TID Vitals/I & O Vital Sign - Last 24 Hours 02/19/17 02/19/17 02/19/17 02/19/17 18:23 19:00 19:30 20:00 Temp 100.6 100.6 Pulse 108 100 98 98 Resp 40 B/P (MAP) 108/53 (71) 119/59 (79) 108/55 (72) 114/72 (86) Pulse Ox 91 94 93 94 O2 Delivery Nasal Cannula Nasal Cannula Nasal Cannula Nasal Cannula O2 Flow Rate 3.0 3.0 3.0 3.0 02/19/17 02/19/17 02/19/17 02/19/17 20:30 21:00 21:30 22:00 Pulse 96 94 94 92 B/P (MAP) 114/56 (75) 120/56 (77) 124/59 (80) 101/53 (69) Pulse Ox 94 96 96 95 O2 Delivery Nasal Cannula Nasal Cannula Nasal Cannula Nasal Cannula O2 Flow Rate 3.0 3.0 3.0 3.0 02/19/17 02/19/17 02/19/17 02/19/17 22:30 23:00 23:30 23:30 Temp 97.8 97.8 Pulse 92 88 89 Resp 18 B/P (MAP) 113/56 (75) 117/56 (76) 115/53 (73) Pulse Ox 96 96 93 O2 Delivery Nasal Cannula Nasal Cannula Nasal Cannula Nasal Cannula O2 Flow Rate 3.0 3.0 3.0 3.0 02/20/17 02/20/17 03:35 07:00 Temp 97.6 98.4 97.6 98.4 Pulse 77 71 Resp 18 22 B/P (MAP) 107/41 (63) 103/45 (64) Pulse Ox 96 94 O2 Delivery Room Air Nasal Cannula O2 Flow Rate 3.0 Intake and Output 02/19/17 02/19/17 02/20/17 15:00 23:00 07:00 Intake Total 300 ml Balance 300 ml KAMILA LUO MD Feb 20, 2017 09:19
[2017-02-20] MEDS: AMINO AC 3%/ELECTROLYTE/GLYCER 1,000 ML IV SCH ×2 (10:04→23:05)
[2017-02-20 10:57] LABS: % SAT IRON 10 % (15-34); IRON,SERUM 21 ug/dL (50-170)
[2017-02-20 11:00] VITALS: BP 119/47
[2017-02-20 11:10] LABS: ALBUMIN 1.9 g/dL (3.4-5.0)
[2017-02-20 15:00] VITALS: BP 121/43
--- NOTE | 2017-02-20 16:35 | PDOC2 ---
CONSULT Date of Consult Date of Consult DATE: 02/20/17 TIME: 16:27 Reason for Consult Reason for Consult: POSSIBLE PNEUMONIA Referring Physician Referring Physician: DR CALI History of Present Illness Reason for Visit: PT DEMENTED NO HISTORY OBTAINED SHE DOES NOT APPEAR TO BE IN DISTRESS CXR IS ABNORMAL I WAS CONSULTED Past Medical History Cardiovascular: HTN CENTRAL NERVOUS SYSTEM: Dementia, Other GI: GERD Psych: Anxiety Renal/: Chronic renal insuff Past Surgical History Past Surgical History: No pertinent history Family History Family History: Family History Unknown Social History ALCOHOL: none Drugs: None Lives: Longterm Domestic Violence: Neg Current Medications Current Medications Current Medications Sodium Chloride 1,000 ml @ 100 mls/hr Q10H IV Last administered on 02/19/17 19 :20; Start 02/19/17 at 19:00; Stop 02/20/17 at 04:59; Status DC Cefepime HCl 1 gm/ Sodium Chloride 50 ml @ 100 mls/hr Q8HRS IV ; Start 02/19/17 at 22:00; Status UNV Vancomycin HCl (Vanco Per Pharmacy) 1 each PRN DAILY PRN MC SEE COMMENTS Last administered on 02/20/17 01:14; Start 02/19/17 at 20:00; Stop 02/20/17 at 09:10; Status DC Acetaminophen (Acetaminophen Supp) 650 mg 1X ONCE MA Last administered on 20:20; Start 02/19/17 at 20:00; Stop 02/19/17 at 20:07; Status DC Vancomycin HCl 1.25 gm/Dextrose 250 ml @ 166.667 mls/hr 1X ONCE IV Last administered on 02/19/17 21:37; Start 02/19/17 at 20:15; Stop 02/19/17 at 21:44; Status DC Cefepime HCl 1 gm/ Dextrose 100 ml @ 200 mls/hr 1X ONCE IV Last administered on 02/19/17 20:20; Start 02/19/17 at 20:15; Stop 02/19/17 at 20:44; Status DC Sodium Chloride 1,000 ml @ 150 mls/hr 1X ONCE IV Last administered on 22:09; Start 02/19/17 at 20:15; Stop 02/20/17 at 02:54; Status DC Clindamycin Phosphate 480 ml @ 960 mls/hr 1X ONCE IV ; Start 02/19/17 at 20:30 ; Stop 02/19/17 at 20:59; Status UNV Clindamycin Phosphate 50 ml @ 100 mls/hr 1X ONCE IV Last administered on 20:30; Start 02/19/17 at 20:30; Stop 02/20/17 at 09:10; Status DC Acetaminophen (Tylenol) 650 mg PRN Q4HRS PRN PO MILD PAIN; Start 02/19/17 at 22: 15 Carbidopa/Levodopa (Sinemet 25/100) 1 tab TID PO ; Start 02/20/17 at 09:00 Vitamin D (Vitamin D3) 1,000 unit DAILY PO ; Start 02/20/17 at 09:00 Magnesium Hydroxide (Milk Of Magnesia) 400 mg PRN DAILY PRN PO CONSTIPATION; Start 02/19/17 at 22:15 Risperidone (RisperDAL) 1 mg BID PO ; Start 02/20/17 at 09:00 Cetirizine HCl (ZyrTEC) 10 mg DAILY PO ; Start 02/20/17 at 09:00 Multivitamins (Thera M Plus) 1 tab DAILY PO ; Start 02/20/17 at 09:00 Pantoprazole Sodium (Protonix) 40 mg DAILYAC PO ; Start 02/20/17 at 07:30 Metoprolol Tartrate (Lopressor) 12.5 mg BID PO ; Start 02/20/17 at 09:00 Vancomycin HCl 750 mg/Dextrose 250 ml @ 250 mls/hr Q48H IV ; Start 02/21/17 at 21:00; Stop 02/21/17 at 21:00; Status DC Vancomycin HCl 1 each 1X ONCE MC ; Start 02/23/17 at 20:30; Stop 02/23/17 at 20 :30; Status DC Cefepime HCl 1 gm/ Dextrose 100 ml @ 100 mls/hr Q24H IV ; Start 02/20/17 at 20: 00 Sodium Chloride 1,000 ml @ 100 mls/hr Q10H IV ; Start 02/20/17 at 06:30 Amino Acids/ Glycerin/ Electrolytes 1,000 ml @ 80 mls/hr [id number] IV Last administered on 02/20/17 10:04; Start 02/20/17 at 09:00 Magnesium Sulfate/ Dextrose 50 ml @ 25 mls/hr PRN DAILY PRN IV for Mag < 1.7 on am labs; Start 02/20/17 at 09:00 Potassium Phosphate 13.6 mmol/Sodium Chloride 254.5333 ml @ 127.... PRN Q2HRS PRN IV for Phos < WNL; Start 02/20/17 at 09:00 Active Scripts Active Reported Metoprolol Tartrate 25 Mg Tablet 12.5 Mg PO BID Risperdal (Risperidone) 0.5 Mg Tablet 0.5 Mg PO DAILY Miralax (Polyethylene Glycol 3350) 17 Gm Powd.pack 1 Pkt PO DAILY Vitamin D (Cholecalciferol (Vitamin D3)) 1,000 Unit Tablet 1,000 Unit PO DAILY Milk Of Magnesia (Magnesium Hydroxide) 400 Mg/5 Ml Oral.susp 400 Mg PO PRN PRN Artificial Tears (Polyvinyl Alcohol) 15 Ml Drops 2 Drop OP PRN Q4HRS PRN Acetaminophen 500 Mg Tablet 650 Mg PO PRN Q4HRS PRN Multivitamins (Multivitamin) 1 Each Tablet 1 Tab PO DAILY Risperidone 1 Mg Tablet 1 Tab PO HS Sinemet 25-100 Mg Tablet (Carbidopa/Levodopa) 1 Each Tablet 1 Tab PO TID Allergies Allergies: Coded Allergies: I S O L A T I O N *CONTACT* (Verified Allergy, Unknown, 01/26/15) mrsa + No Known Medication Allergies (Verified Allergy, Unknown, 01/26/15) ROS Review of System UNABLE TO OBTAIN Vitals VITALS Vital Signs Date Time Temp Pulse Resp B/P (MAP) Pulse Ox O2 Delivery O2 Flow Rate FiO2 02/20/17 15:00 98.7 69 20 121/43 (69) 93 Nasal Cannula 3.0 98.7 Labs Labs Laboratory Tests Test 02/19/17 18:37 02/19/17 19:20 02/20/17 01:10 02/20/17 05:25 White Blood Count 16.7 x10^3/uL (4.0-11.0) 10.5 x10^3/uL (4.0-11.0) Red Blood Count 4.31 x10^6/uL (3.50-5.40) 3.47 x10^6/uL (3.50-5.40) Hemoglobin 12.0 g/dL (12.0-15.5) 9.7 g/dL (12.0-15.5) Hematocrit 38.6 % (36.0-47.0) 30.5 % (36.0-47.0) Mean Corpuscular Volume 90 fL (79-100) 88 fL (79-100) Mean Corpuscular Hemoglobin 28 pg (25-35) 28 pg (25-35) Mean Corpuscular Hemoglobin Concent 31 g/dL (31-37) 32 g/dL (31-37) Red Cell Distribution Width 14.2 % (11.5-14.5) 14.1 % (11.5-14.5) Platelet Count 375 x10^3/uL (140-400) 254 x10^3/uL (140-400) Neutrophils (%) (Auto) 89 % (31-73) 77 % (31-73) Lymphocytes (%) (Auto) 3 % (24-48) 12 % (24-48) Monocytes (%) (Auto) 7 % (0-9) 11 % (0-9) Eosinophils (%) (Auto) 0 % (0-3) 0 % (0-3) Basophils (%) (Auto) 0 % (0-3) 0 % (0-3) Neutrophils # (Auto) 14.9 x10^3uL (1.8-7.7) 8.1 x10^3uL (1.8-7.7) Lymphocytes # (Auto) 0.6 x10^3/uL (1.0-4.8) 1.2 x10^3/uL (1.0-4.8) Monocytes # (Auto) 1.2 x10^3/uL (0.0-1.1) 1.1 x10^3/uL (0.0-1.1) Eosinophils # (Auto) 0.0 x10^3/uL (0.0-0.7) 0.0 x10^3/uL (0.0-0.7) Basophils # (Auto) 0.0 x10^3/uL (0.0-0.2) 0.0 x10^3/uL (0.0-0.2) Segmented Neutrophils % 94 % (35-66) Lymphocytes % 4 % (24-48) Monocytes % 2 % (0-10) Platelet Estimate Adequate (ADEQUATE) Platelet Clumps, EDTA Present Large Platelets Occ Polychromasia Slight Ovalocytes Occ Schistocytes Occ Sodium Level 167 mmol/L (136-145) 167 mmol/L (136-145) Potassium Level 5.0 mmol/L (3.5-5.1) 4.0 mmol/L (3.5-5.1) Chloride Level 124 mmol/L (98-107) 130 mmol/L (98-107) Carbon Dioxide Level 30 mmol/L (21-32) 28 mmol/L (21-32) Anion Gap 13 (6-14) 9 (6-14) Blood Urea Nitrogen 45 mg/dL (7-20) 39 mg/dL (7-20) Creatinine 2.0 mg/dL (0.6-1.0) 1.3 mg/dL (0.6-1.0) Estimated GFR (Cockcroft-Gault) 23.8 39.1 Glucose Level 207 mg/dL (70-99) 95 mg/dL (70-99) Lactic Acid Level 3.5 mmol/L (0.4-2.0) 0.6 mmol/L (0.4-2.0) Calcium Level 9.2 mg/dL (8.5-10.1) 7.6 mg/dL (8.5-10.1) Troponin I Quantitative < 0.017 ng/mL (0.000-0.055) Thyroid Stimulating Hormone (TSH) 1.078 uIU/mL (0.358-3.74) Urine Color Yellow Urine Clarity Turbid Urine pH 5.0 Urine Specific Scobey 1.020 Urine Protein Negative mg/dL (NEG-TRACE) Urine Glucose (UA) Negative mg/dL (NEG) Urine Ketones (Stick) Negative mg/dL (NEG) Urine Blood Negative (NEG) Urine Nitrite Negative (NEG) Urine Bilirubin Negative (NEG) Urine Urobilinogen Dipstick 0.2 mg/dL (0.2 mg/dL) Urine Leukocyte Esterase Trace (NEG) Urine RBC 0 /HPF (0-2) Urine WBC 1-4 /HPF (0-4) Urine Squamous Epithelial Cells Mod /LPF Urine Bacteria Mod /HPF (0-FEW) Reticulocyte Count (auto) 0.5 % (0.5-2.5) Test 02/20/17 10:30 Iron Level 21 ug/dL (50-170) Total Iron Binding Capacity 215 ug/dL (250-450) Iron Saturation 10 % (15-34) Ferritin 249 ng/mL (8-252) Albumin 1.9 g/dL (3.4-5.0) Laboratory Tests Test 02/19/17 18:37 02/19/17 19:20 02/20/17 01:10 02/20/17 05:25 White Blood Count 16.7 x10^3/uL (4.0-11.0) 10.5 x10^3/uL (4.0-11.0) Red Blood Count 4.31 x10^6/uL (3.50-5.40) 3.47 x10^6/uL (3.50-5.40) Hemoglobin 12.0 g/dL (12.0-15.5) 9.7 g/dL (12.0-15.5) Hematocrit 38.6 % (36.0-47.0) 30.5 % (36.0-47.0) Mean Corpuscular Volume 90 fL (79-100) 88 fL (79-100) Mean Corpuscular Hemoglobin 28 pg (25-35) 28 pg (25-35) Mean Corpuscular Hemoglobin Concent 31 g/dL (31-37) 32 g/dL (31-37) Red Cell Distribution Width 14.2 % (11.5-14.5) 14.1 % (11.5-14.5) Platelet Count 375 x10^3/uL (140-400) 254 x10^3/uL (140-400) Neutrophils (%) (Auto) 89 % (31-73) 77 % (31-73) Lymphocytes (%) (Auto) 3 % (24-48) 12 % (24-48) Monocytes (%) (Auto) 7 % (0-9) 11 % (0-9) Eosinophils (%) (Auto) 0 % (0-3) 0 % (0-3) Basophils (%) (Auto) 0 % (0-3) 0 % (0-3) Neutrophils # (Auto) 14.9 x10^3uL (1.8-7.7) 8.1 x10^3uL (1.8-7.7) Lymphocytes # (Auto) 0.6 x10^3/uL (1.0-4.8) 1.2 x10^3/uL (1.0-4.8) Monocytes # (Auto) 1.2 x10^3/uL (0.0-1.1) 1.1 x10^3/uL (0.0-1.1) Eosinophils # (Auto) 0.0 x10^3/uL (0.0-0.7) 0.0 x10^3/uL (0.0-0.7) Basophils # (Auto) 0.0 x10^3/uL (0.0-0.2) 0.0 x10^3/uL (0.0-0.2) Segmented Neutrophils % 94 % (35-66) Lymphocytes % 4 % (24-48) Monocytes % 2 % (0-10) Platelet Estimate Adequate (ADEQUATE) Platelet Clumps, EDTA Present Large Platelets Occ Polychromasia Slight Ovalocytes Occ Schistocytes Occ Sodium Level 167 mmol/L (136-145) 167 mmol/L (136-145) Potassium Level 5.0 mmol/L (3.5-5.1) 4.0 mmol/L (3.5-5.1) Chloride Level 124 mmol/L (98-107) 130 mmol/L (98-107) Carbon Dioxide Level 30 mmol/L (21-32) 28 mmol/L (21-32) Anion Gap 13 (6-14) 9 (6-14) Blood Urea Nitrogen 45 mg/dL (7-20) 39 mg/dL (7-20) Creatinine 2.0 mg/dL (0.6-1.0) 1.3 mg/dL (0.6-1.0) Estimated GFR (Cockcroft-Gault) 23.8 39.1 Glucose Level 207 mg/dL (70-99) 95 mg/dL (70-99) Lactic Acid Level 3.5 mmol/L (0.4-2.0) 0.6 mmol/L (0.4-2.0) Calcium Level 9.2 mg/dL (8.5-10.1) 7.6 mg/dL (8.5-10.1) Troponin I Quantitative < 0.017 ng/mL (0.000-0.055) Thyroid Stimulating Hormone (TSH) 1.078 uIU/mL (0.358-3.74) Urine Color Yellow Urine Clarity Turbid Urine pH 5.0 Urine Specific [place]ey 1.020 Urine Protein Negative mg/dL (NEG-TRACE) Urine Glucose (UA) Negative mg/dL (NEG) Urine Ketones (Stick) Negative mg/dL (NEG) Urine Blood Negative (NEG) Urine Nitrite Negative (NEG) Urine Bilirubin Negative (NEG) Urine Urobilinogen Dipstick 0.2 mg/dL (0.2 mg/dL) Urine Leukocyte Esterase Trace (NEG) Urine RBC 0 /HPF (0-2) Urine WBC 1-4 /HPF (0-4) Urine Squamous Epithelial Cells Mod /LPF Urine Bacteria Mod /HPF (0-FEW) Reticulocyte Count (auto) 0.5 % (0.5-2.5) Test 02/20/17 10:30 Iron Level 21 ug/dL (50-170) Total Iron Binding Capacity 215 ug/dL (250-450) Iron Saturation 10 % (15-34) Ferritin 249 ng/mL (8-252) Albumin 1.9 g/dL (3.4-5.0) Assessment/Plan Assessment/Plan PNEUMONIA MET/TOXIC ENCEPHALOPATHY FEVER/ LEUKOCYTOSIS HYPERNATREMIA DEMENTIA PLAN CONTINUE ANTIBX IF FLUIDS PER NEPHRO POOR PROGNOSIS SILVANO BEAN MD Feb 20, 2017 16:35
[2017-02-20 19:20] VITALS: BP 117/41
[2017-02-20] MEDS: CEFEPIME HCL 1 GM in IV DEXTROSE 5% 100 ML IV SCH (20:00)
[2017-02-20 23:00] VITALS: BP 132/45
[2017-02-21 03:21] VITALS: BP 146/87
[2017-02-21 06:44] LABS: ALBUMIN 1.8 g/dL (3.4-5.0); CALCIUM 8.9 mg/dL (8.5-10.1); PHOSPHORUS 2.5 mg/dL (2.6-4.7); POTASSIUM 4.1 mmol/L (3.5-5.1)
[2017-02-21 06:47] LABS: MAGNESIUM 2.4 mg/dL (1.8-2.4); PHOSPHORUS 2.6 mg/dL (2.6-4.7)
[2017-02-21] MEDS: PANTOPRAZOLE 40 MG TABLET.DR. PO SCH (07:30)
[2017-02-21 07:48] VITALS: BP 136/86
--- NOTE | 2017-02-21 08:06 | PDOC ---
Infectious Disease Note Subjective Subjective more awake and mumbles few words ROS ROS unable to do Vital Sign Vital Signs Vital Signs Date Time Temp Pulse Resp B/P (MAP) Pulse Ox O2 Delivery O2 Flow Rate FiO2 02/21/17 07:48 97.5 79 46 136/86 (103) 95 Nasal Cannula 97.5 02/20/17 23:00 2.0 Physical Exam PHYSICAL EXAM GENERAL: NAD, Alert HEENT: PERRL, OC/OP NECK: Supple, no JVD, no LN LUNGS: Clear HEART: S1S2, no gallop, no murmur ABD: Soft, NT, no organomegaly, no rebound EXT: No edema, no cyanosis SOUR BLEACHING PLEATER: Alert, SKIN: No rash IV: ok Labs Lab Laboratory Tests Test 02/20/17 10:30 02/21/17 05:00 Iron Level 21 ug/dL (50-170) Total Iron Binding Capacity 215 ug/dL (250-450) Iron Saturation 10 % (15-34) Ferritin 249 ng/mL (8-252) Albumin 1.9 g/dL (3.4-5.0) 1.8 g/dL (3.4-5.0) 25-Hydroxy Vitamin D Total 37.0 ng/mL (30.0-100.0) Hemoglobin 10.6 g/dL (12.0-15.5) Sodium Level 160 mmol/L (136-145) Potassium Level 4.1 mmol/L (3.5-5.1) Chloride Level 124 mmol/L (98-107) Carbon Dioxide Level 28 mmol/L (21-32) Anion Gap 8 (6-14) Blood Urea Nitrogen 37 mg/dL (7-20) Creatinine 1.0 mg/dL (0.6-1.0) Estimated GFR (Cockcroft-Gault) 53.0 Glucose Level 105 mg/dL (70-99) Calcium Level 8.9 mg/dL (8.5-10.1) Phosphorus Level 2.5 mg/dL (2.6-4.7) Magnesium Level 2.4 mg/dL (1.8-2.4) Creatine Kinase 292 U/L (26-192) Objective Assessment Leukocytosis Fever Encephalopathy Dehydration Hypernatremia Renal failure Dementia Plan Plan of Care cont antibiotics supportive care check cultures QUINTIN BRUSH MD Feb 21, 2017 08:05
[2017-02-21] MEDS: CHOLECALCIFEROL (VITAMIN D3) 1,000 UNIT TABLET PO SCH (09:00)
[2017-02-21] MEDS: METOPROLOL TART IMMED RELEASE 25 MG TABLET. PO SCH ×2 (09:00→19:25)
[2017-02-21] MEDS: risperiDONE 1 MG TABLET. PO SCH ×2 (09:00→19:25)
[2017-02-21] MEDS: CARBIDOPA/LEVODOPA 25/100MG TABLET PO SCH ×3 (09:00→19:25)
[2017-02-21] MEDS: MULTIVITAMIN with MINERAL TABLET. PO SCH (09:00)
[2017-02-21] MEDS: CETIRIZINE HCL 10 MG TABLET. PO SCH (09:00)
--- NOTE | 2017-02-21 09:08 | PDOC ---
PROGRESS NOTES Chief Complaint Chief Complaint cc: fever A/P HYPERNATREMIA POSSIBLE PNEUMONIA DEHYDRATION SEVERE FEVERS MALNUTRITION ALTERED MENTAL STATUS/ ENCEPHALOPATHY, POSSIBLE BASELINE STATE Plan: on IV hydration and ProcalAmine. Continue current antibiotics and blood cultures pending, D/W IVAN, RN, No family available, She appears to be more nourished will continue ProcalAmine and encouraged oral intake. speech and swallow evaluation, d/w RN Monitor sodium very closely. Improving now Continue antibiotics. Physical therapy and occupational therapy ordered Prognosis guarded. Infectious disease and nephrology has been following. Patient case Discussed with infectious disease. History of Present Illness History of Present Illness She appears very weak and thin built. Patient is a alert but not able to provide good history Very dehydrated Vitals Vitals Vital Signs Date Time Temp Pulse Resp B/P (MAP) Pulse Ox O2 Delivery O2 Flow Rate FiO2 02/21/17 07:48 97.5 79 46 136/86 (103) 95 Nasal Cannula 97.5 02/20/17 23:00 2.0 Physical Exam General: Alert, Other (THIN BUILT, ) Heart: Normal S1, Normal S2 Lungs: Clear Abdomen: Normal bowel sounds, Soft Extremities: No clubbing Labs LABS Laboratory Tests Test 02/20/17 10:30 02/21/17 05:00 Iron Level 21 ug/dL (50-170) Total Iron Binding Capacity 215 ug/dL (250-450) Iron Saturation 10 % (15-34) Ferritin 249 ng/mL (8-252) Albumin 1.9 g/dL (3.4-5.0) 1.8 g/dL (3.4-5.0) 25-Hydroxy Vitamin D Total 37.0 ng/mL (30.0-100.0) Hemoglobin 10.6 g/dL (12.0-15.5) Sodium Level 160 mmol/L (136-145) Potassium Level 4.1 mmol/L (3.5-5.1) Chloride Level 124 mmol/L (98-107) Carbon Dioxide Level 28 mmol/L (21-32) Anion Gap 8 (6-14) Blood Urea Nitrogen 37 mg/dL (7-20) Creatinine 1.0 mg/dL (0.6-1.0) Estimated GFR (Cockcroft-Gault) 53.0 Glucose Level 105 mg/dL (70-99) Calcium Level 8.9 mg/dL (8.5-10.1) Phosphorus Level 2.5 mg/dL (2.6-4.7) Magnesium Level 2.4 mg/dL (1.8-2.4) Creatine Kinase 292 U/L (26-192) Comment Review of Relevant I have reviewed the following items giovanni (where applicable) has been applied. Labs Laboratory Tests Test 02/19/17 18:37 02/19/17 19:20 02/19/17 23:15 02/20/17 01:10 White Blood Count 16.7 x10^3/uL (4.0-11.0) Red Blood Count 4.31 x10^6/uL (3.50-5.40) Hemoglobin 12.0 g/dL (12.0-15.5) Hematocrit 38.6 % (36.0-47.0) Mean Corpuscular Volume 90 fL (79-100) Mean Corpuscular Hemoglobin 28 pg (25-35) Mean Corpuscular Hemoglobin Concent 31 g/dL (31-37) Red Cell Distribution Width 14.2 % (11.5-14.5) Platelet Count 375 x10^3/uL (140-400) Neutrophils (%) (Auto) 89 % (31-73) Lymphocytes (%) (Auto) 3 % (24-48) Monocytes (%) (Auto) 7 % (0-9) Eosinophils (%) (Auto) 0 % (0-3) Basophils (%) (Auto) 0 % (0-3) Neutrophils # (Auto) 14.9 x10^3uL (1.8-7.7) Lymphocytes # (Auto) 0.6 x10^3/uL (1.0-4.8) Monocytes # (Auto) 1.2 x10^3/uL (0.0-1.1) Eosinophils # (Auto) 0.0 x10^3/uL (0.0-0.7) Basophils # (Auto) 0.0 x10^3/uL (0.0-0.2) Segmented Neutrophils % 94 % (35-66) Lymphocytes % 4 % (24-48) Monocytes % 2 % (0-10) Platelet Estimate Adequate (ADEQUATE) Platelet Clumps, EDTA Present Large Platelets Occ Polychromasia Slight Ovalocytes Occ Schistocytes Occ Sodium Level 167 mmol/L (136-145) Potassium Level 5.0 mmol/L (3.5-5.1) Chloride Level 124 mmol/L (98-107) Carbon Dioxide Level 30 mmol/L (21-32) Anion Gap 13 (6-14) Blood Urea Nitrogen 45 mg/dL (7-20) Creatinine 2.0 mg/dL (0.6-1.0) Estimated GFR (Cockcroft-Gault) 23.8 Glucose Level 207 mg/dL (70-99) Lactic Acid Level 3.5 mmol/L (0.4-2.0) 0.6 mmol/L (0.4-2.0) Calcium Level 9.2 mg/dL (8.5-10.1) Troponin I Quantitative < 0.017 ng/mL (0.000-0.055) Thyroid Stimulating Hormone (TSH) 1.078 uIU/mL (0.358-3.74) Urine Color Yellow Urine Clarity Turbid Urine pH 5.0 Urine Specific [place] 1.020 Urine Protein Negative mg/dL (NEG-TRACE) Urine Glucose (UA) Negative mg/dL (NEG) Urine Ketones (Stick) Negative mg/dL (NEG) Urine Blood Negative (NEG) Urine Nitrite Negative (NEG) Urine Bilirubin Negative (NEG) Urine Urobilinogen Dipstick 0.2 mg/dL (0.2 mg/dL) Urine Leukocyte Esterase Trace (NEG) Urine RBC 0 /HPF (0-2) Urine WBC 1-4 /HPF (0-4) Urine Squamous Epithelial Cells Mod /LPF Urine Bacteria Mod /HPF (0-FEW) Nasal Screen MRSA (PCR) Positive (Negative) Test 02/20/17 05:25 02/20/17 10:30 02/21/17 05:00 White Blood Count 10.5 x10^3/uL (4.0-11.0) Red Blood Count 3.47 x10^6/uL (3.50-5.40) Hemoglobin 9.7 g/dL (12.0-15.5) 10.6 g/dL (12.0-15.5) Hematocrit 30.5 % (36.0-47.0) Mean Corpuscular Volume 88 fL (79-100) Mean Corpuscular Hemoglobin 28 pg (25-35) Mean Corpuscular Hemoglobin Concent 32 g/dL (31-37) Red Cell Distribution Width 14.1 % (11.5-14.5) Platelet Count 254 x10^3/uL (140-400) Neutrophils (%) (Auto) 77 % (31-73) Lymphocytes (%) (Auto) 12 % (24-48) Monocytes (%) (Auto) 11 % (0-9) Eosinophils (%) (Auto) 0 % (0-3) Basophils (%) (Auto) 0 % (0-3) Neutrophils # (Auto) 8.1 x10^3uL (1.8-7.7) Lymphocytes # (Auto) 1.2 x10^3/uL (1.0-4.8) Monocytes # (Auto) 1.1 x10^3/uL (0.0-1.1) Eosinophils # (Auto) 0.0 x10^3/uL (0.0-0.7) Basophils # (Auto) 0.0 x10^3/uL (0.0-0.2) Reticulocyte Count (auto) 0.5 % (0.5-2.5) Sodium Level 167 mmol/L (136-145) 160 mmol/L (136-145) Potassium Level 4.0 mmol/L (3.5-5.1) 4.1 mmol/L (3.5-5.1) Chloride Level 130 mmol/L (98-107) 124 mmol/L (98-107) Carbon Dioxide Level 28 mmol/L (21-32) 28 mmol/L (21-32) Anion Gap 9 (6-14) 8 (6-14) Blood Urea Nitrogen 39 mg/dL (7-20) 37 mg/dL (7-20) Creatinine 1.3 mg/dL (0.6-1.0) 1.0 mg/dL (0.6-1.0) Estimated GFR (Cockcroft-Gault) 39.1 53.0 Glucose Level 95 mg/dL (70-99) 105 mg/dL (70-99) Calcium Level 7.6 mg/dL (8.5-10.1) 8.9 mg/dL (8.5-10.1) Iron Level 21 ug/dL (50-170) Total Iron Binding Capacity 215 ug/dL (250-450) Iron Saturation 10 % (15-34) Ferritin 249 ng/mL (8-252) Albumin 1.9 g/dL (3.4-5.0) 1.8 g/dL (3.4-5.0) 25-Hydroxy Vitamin D Total 37.0 ng/mL (30.0-100.0) Phosphorus Level 2.5 mg/dL (2.6-4.7) Magnesium Level 2.4 mg/dL (1.8-2.4) Creatine Kinase 292 U/L (26-192) Laboratory Tests Test 02/20/17 10:30 02/21/17 05:00 Iron Level 21 ug/dL (50-170) Total Iron Binding Capacity 215 ug/dL (250-450) Iron Saturation 10 % (15-34) Ferritin 249 ng/mL (8-252) Albumin 1.9 g/dL (3.4-5.0) 1.8 g/dL (3.4-5.0) 25-Hydroxy Vitamin D Total 37.0 ng/mL (30.0-100.0) Hemoglobin 10.6 g/dL (12.0-15.5) Sodium Level 160 mmol/L (136-145) Potassium Level 4.1 mmol/L (3.5-5.1) Chloride Level 124 mmol/L (98-107) Carbon Dioxide Level 28 mmol/L (21-32) Anion Gap 8 (6-14) Blood Urea Nitrogen 37 mg/dL (7-20) Creatinine 1.0 mg/dL (0.6-1.0) Estimated GFR (Cockcroft-Gault) 53.0 Glucose Level 105 mg/dL (70-99) Calcium Level 8.9 mg/dL (8.5-10.1) Phosphorus Level 2.5 mg/dL (2.6-4.7) Magnesium Level 2.4 mg/dL (1.8-2.4) Creatine Kinase 292 U/L (26-192) Medications Current Medications Sodium Chloride 1,000 ml @ 100 mls/hr Q10H IV Last administered on 02/19/17t 19 :20; Start 02/19/17 at 19:00; Stop 02/20/17 at 04:59; Status DC Cefepime HCl 1 gm/ Sodium Chloride 50 ml @ 100 mls/hr Q8HRS IV ; Start 02/19/17 at 22:00; Status UNV Vancomycin HCl (Vanco Per Pharmacy) 1 each PRN DAILY PRN MC SEE COMMENTS Last administered on 02/20/17 01:14; Start 02/19/17 at 20:00; Stop 02/20/17 at 09:10; Status DC Acetaminophen (Acetaminophen Supp) 650 mg 1X ONCE [place] Last administered on 20:20; Start 02/19/17 at 20:00; Stop 02/19/17 at 20:07; Status DC Vancomycin HCl 1.25 gm/Dextrose 250 ml @ 166.667 mls/hr 1X ONCE IV Last administered on 02/19/17 21:37; Start 02/19/17 at 20:15; Stop 02/19/17 at 21:44; Status DC Cefepime HCl 1 gm/ Dextrose 100 ml @ 200 mls/hr 1X ONCE IV Last administered on 02/19/17 20:20; Start 02/19/17 at 20:15; Stop 02/19/17 at 20:44; Status DC Sodium Chloride 1,000 ml @ 150 mls/hr 1X ONCE IV Last administered on 22:09; Start 02/19/17 at 20:15; Stop 02/20/17 at 02:54; Status DC Clindamycin Phosphate 480 ml @ 960 mls/hr 1X ONCE IV ; Start 02/19/17 at 20:30 ; Stop 02/19/17 at 20:59; Status UNV Clindamycin Phosphate 50 ml @ 100 mls/hr 1X ONCE IV Last administered on 20:30; Start 02/19/17 at 20:30; Stop 02/20/17 at 09:10; Status DC Acetaminophen (Tylenol) 650 mg PRN Q4HRS PRN PO MILD PAIN; Start 02/19/17 at 22: 15 Carbidopa/Levodopa (Sinemet 25/100) 1 tab TID PO ; Start 02/20/17 at 09:00 Vitamin D (Vitamin D3) 1,000 unit DAILY PO ; Start 02/20/17 at 09:00 Magnesium Hydroxide (Milk Of Magnesia) 400 mg PRN DAILY PRN PO CONSTIPATION; Start 02/19/17 at 22:15 Risperidone (RisperDAL) 1 mg BID PO ; Start 02/20/17 at 09:00 Cetirizine HCl (ZyrTEC) 10 mg DAILY PO ; Start 02/20/17 at 09:00 Multivitamins (Thera M Plus) 1 tab DAILY PO ; Start 02/20/17 at 09:00 Pantoprazole Sodium (Protonix) 40 mg DAILYAC PO ; Start 02/20/17 at 07:30 Metoprolol Tartrate (Lopressor) 12.5 mg BID PO ; Start 02/20/17 at 09:00 Vancomycin HCl 750 mg/Dextrose 250 ml @ 250 mls/hr Q48H IV ; Start 02/21/17 at 21:00; Stop 02/21/17 at 21:00; Status DC Vancomycin HCl 1 each 1X ONCE MC ; Start 02/23/17 at 20:30; Stop 02/23/17 at 20 :30; Status DC Cefepime HCl 1 gm/ Dextrose 100 ml @ 100 mls/hr Q24H IV Last administered on 20:00; Start 02/20/17 at 20:00 Sodium Chloride 1,000 ml @ 100 mls/hr Q10H IV ; Start 02/20/17 at 06:30; Stop at 16:36; Status DC Amino Acids/ Glycerin/ Electrolytes 1,000 ml @ 80 mls/hr [id number] IV Last administered on 02/20/17 23:05; Start 02/20/17 at 09:00 Magnesium Sulfate/ Dextrose 50 ml @ 25 mls/hr PRN DAILY PRN IV for Mag < 1.7 on am labs; Start 02/20/17 at 09:00 Potassium Phosphate 13.6 mmol/Sodium Chloride 254.5333 ml @ 127.... PRN Q2HRS PRN IV for Phos < WNL; Start 02/20/17 at 09:00 Active Scripts Active Reported Metoprolol Tartrate 25 Mg Tablet 12.5 Mg PO BID Risperdal (Risperidone) 0.5 Mg Tablet 0.5 Mg PO DAILY Miralax (Polyethylene Glycol 3350) 17 Gm Powd.pack 1 Pkt PO DAILY Vitamin D (Cholecalciferol (Vitamin D3)) 1,000 Unit Tablet 1,000 Unit PO DAILY Milk Of Magnesia (Magnesium Hydroxide) 400 Mg/5 Ml Oral.susp 400 Mg PO PRN PRN Artificial Tears (Polyvinyl Alcohol) 15 Ml Drops 2 Drop OP PRN Q4HRS PRN Acetaminophen 500 Mg Tablet 650 Mg PO PRN Q4HRS PRN Multivitamins (Multivitamin) 1 Each Tablet 1 Tab PO DAILY Risperidone 1 Mg Tablet 1 Tab PO HS Sinemet 25-100 Mg Tablet (Carbidopa/Levodopa) 1 Each Tablet 1 Tab PO TID Vitals/I & O Vital Sign - Last 24 Hours 02/20/17 02/20/17 02/20/17 02/20/17 11:00 15:00 19:20 20:05 Temp 98.6 98.7 98.6 98.6 98.7 98.6 Pulse 80 69 70 Resp 20 20 18 B/P (MAP) 119/47 (71) 121/43 (69) 117/41 (66) Pulse Ox 93 93 93 O2 Delivery Nasal Cannula Nasal Cannula Nasal Cannula Nasal Cannula O2 Flow Rate 3.0 3.0 3.0 3.0 02/20/17 02/20/17 02/21/17 02/21/17 21:00 23:00 03:21 07:48 Temp 98.6 98.5 97.5 98.6 98.5 97.5 Pulse 70 87 79 79 Resp 24 18 46 B/P (MAP) 117/41 132/45 (74) 146/87 (106) 136/86 (103) Pulse Ox 90 93 95 O2 Delivery Nasal Cannula Nasal Cannula Nasal Cannula O2 Flow Rate 2.0 Intake and Output 02/20/17 02/20/17 02/21/17 15:00 23:00 07:00 Intake Total 0 ml 960 ml Balance 0 ml 960 ml Nutrition Consultation Dietary Evaluation: Comments: continue ppn for short term nutrition at this time monitor care plan Expected Outcomes/Goals: unknown at this time Malnutrition Findings: Body Fat Depletion (Non Severe: Mild Depletion Weight Status: Underweight KAMILA LUO MD Feb 21, 2017 09:08
[2017-02-21 10:38] VITALS: BP 125/63
--- NOTE | 2017-02-21 14:17 | PDOC ---
PROGRESS NOTES Subjective Subjective SEEN IN FOLLOW UP OF ARF AND HYPERNATREMIA Objective Objective Vital Signs Date Time Temp Pulse Resp B/P (MAP) Pulse Ox O2 Delivery O2 Flow Rate FiO2 02/21/17 10:38 97.9 90 40 125/63 (83) 95 Nasal Cannula 97.9 02/20/17 23:00 2.0 Intake and Output 02/21/17 07:00 Intake Total 960 ml Balance 960 ml Intake Oral 0 ml Other 960 ml # Voids 2 Physical Exam Abdomen: Normal bowel sounds, Soft, No tenderness, No hepatosplenomegaly, No masses Heart: Regular rate, Normal S1, Normal S2, No murmurs, Gallops Extremities: No clubbing, No cyanosis, No edema, Normal pulses, No tenderness/ swelling Lungs: Clear to auscultation, Normal air movement Diagnosis RENAL FAILURE: Acute, Other (DEHYDRATION WITH HYPERNATREMIA) Plan Plan of Care CONT IVF/PPN PER LAB Comment Review of Relevant I have reviewed the following items giovanni (where applicable) has been applied. Labs Laboratory Tests Test 02/19/17 18:37 02/19/17 19:20 02/19/17 23:15 02/20/17 01:10 White Blood Count 16.7 x10^3/uL (4.0-11.0) Red Blood Count 4.31 x10^6/uL (3.50-5.40) Hemoglobin 12.0 g/dL (12.0-15.5) Hematocrit 38.6 % (36.0-47.0) Mean Corpuscular Volume 90 fL (79-100) Mean Corpuscular Hemoglobin 28 pg (25-35) Mean Corpuscular Hemoglobin Concent 31 g/dL (31-37) Red Cell Distribution Width 14.2 % (11.5-14.5) Platelet Count 375 x10^3/uL (140-400) Neutrophils (%) (Auto) 89 % (31-73) Lymphocytes (%) (Auto) 3 % (24-48) Monocytes (%) (Auto) 7 % (0-9) Eosinophils (%) (Auto) 0 % (0-3) Basophils (%) (Auto) 0 % (0-3) Neutrophils # (Auto) 14.9 x10^3uL (1.8-7.7) Lymphocytes # (Auto) 0.6 x10^3/uL (1.0-4.8) Monocytes # (Auto) 1.2 x10^3/uL (0.0-1.1) Eosinophils # (Auto) 0.0 x10^3/uL (0.0-0.7) Basophils # (Auto) 0.0 x10^3/uL (0.0-0.2) Segmented Neutrophils % 94 % (35-66) Lymphocytes % 4 % (24-48) Monocytes % 2 % (0-10) Platelet Estimate Adequate (ADEQUATE) Platelet Clumps, EDTA Present Large Platelets Occ Polychromasia Slight Ovalocytes Occ Schistocytes Occ Sodium Level 167 mmol/L (136-145) Potassium Level 5.0 mmol/L (3.5-5.1) Chloride Level 124 mmol/L (98-107) Carbon Dioxide Level 30 mmol/L (21-32) Anion Gap 13 (6-14) Blood Urea Nitrogen 45 mg/dL (7-20) Creatinine 2.0 mg/dL (0.6-1.0) Estimated GFR (Cockcroft-Gault) 23.8 Glucose Level 207 mg/dL (70-99) Lactic Acid Level 3.5 mmol/L (0.4-2.0) 0.6 mmol/L (0.4-2.0) Calcium Level 9.2 mg/dL (8.5-10.1) Troponin I Quantitative < 0.017 ng/mL (0.000-0.055) Thyroid Stimulating Hormone (TSH) 1.078 uIU/mL (0.358-3.74) Urine Color Yellow Urine Clarity Turbid Urine pH 5.0 Urine Specific [place] 1.020 Urine Protein Negative mg/dL (NEG-TRACE) Urine Glucose (UA) Negative mg/dL (NEG) Urine Ketones (Stick) Negative mg/dL (NEG) Urine Blood Negative (NEG) Urine Nitrite Negative (NEG) Urine Bilirubin Negative (NEG) Urine Urobilinogen Dipstick 0.2 mg/dL (0.2 mg/dL) Urine Leukocyte Esterase Trace (NEG) Urine RBC 0 /HPF (0-2) Urine WBC 1-4 /HPF (0-4) Urine Squamous Epithelial Cells Mod /LPF Urine Bacteria Mod /HPF (0-FEW) Nasal Screen MRSA (PCR) Positive (Negative) Test 02/20/17 05:25 02/20/17 10:30 02/21/17 05:00 White Blood Count 10.5 x10^3/uL (4.0-11.0) Red Blood Count 3.47 x10^6/uL (3.50-5.40) Hemoglobin 9.7 g/dL (12.0-15.5) 10.6 g/dL (12.0-15.5) Hematocrit 30.5 % (36.0-47.0) Mean Corpuscular Volume 88 fL (79-100) Mean Corpuscular Hemoglobin 28 pg (25-35) Mean Corpuscular Hemoglobin Concent 32 g/dL (31-37) Red Cell Distribution Width 14.1 % (11.5-14.5) Platelet Count 254 x10^3/uL (140-400) Neutrophils (%) (Auto) 77 % (31-73) Lymphocytes (%) (Auto) 12 % (24-48) Monocytes (%) (Auto) 11 % (0-9) Eosinophils (%) (Auto) 0 % (0-3) Basophils (%) (Auto) 0 % (0-3) Neutrophils # (Auto) 8.1 x10^3uL (1.8-7.7) Lymphocytes # (Auto) 1.2 x10^3/uL (1.0-4.8) Monocytes # (Auto) 1.1 x10^3/uL (0.0-1.1) Eosinophils # (Auto) 0.0 x10^3/uL (0.0-0.7) Basophils # (Auto) 0.0 x10^3/uL (0.0-0.2) Reticulocyte Count (auto) 0.5 % (0.5-2.5) Sodium Level 167 mmol/L (136-145) 160 mmol/L (136-145) Potassium Level 4.0 mmol/L (3.5-5.1) 4.1 mmol/L (3.5-5.1) Chloride Level 130 mmol/L (98-107) 124 mmol/L (98-107) Carbon Dioxide Level 28 mmol/L (21-32) 28 mmol/L (21-32) Anion Gap 9 (6-14) 8 (6-14) Blood Urea Nitrogen 39 mg/dL (7-20) 37 mg/dL (7-20) Creatinine 1.3 mg/dL (0.6-1.0) 1.0 mg/dL (0.6-1.0) Estimated GFR (Cockcroft-Gault) 39.1 53.0 Glucose Level 95 mg/dL (70-99) 105 mg/dL (70-99) Calcium Level 7.6 mg/dL (8.5-10.1) 8.9 mg/dL (8.5-10.1) Iron Level 21 ug/dL (50-170) Total Iron Binding Capacity 215 ug/dL (250-450) Iron Saturation 10 % (15-34) Ferritin 249 ng/mL (8-252) Albumin 1.9 g/dL (3.4-5.0) 1.8 g/dL (3.4-5.0) 25-Hydroxy Vitamin D Total 37.0 ng/mL (30.0-100.0) Phosphorus Level 2.5 mg/dL (2.6-4.7) Magnesium Level 2.4 mg/dL (1.8-2.4) Creatine Kinase 292 U/L (26-192) Laboratory Tests Test 02/21/17 05:00 Hemoglobin 10.6 g/dL (12.0-15.5) Sodium Level 160 mmol/L (136-145) Potassium Level 4.1 mmol/L (3.5-5.1) Chloride Level 124 mmol/L (98-107) Carbon Dioxide Level 28 mmol/L (21-32) Anion Gap 8 (6-14) Blood Urea Nitrogen 37 mg/dL (7-20) Creatinine 1.0 mg/dL (0.6-1.0) Estimated GFR (Cockcroft-Gault) 53.0 Glucose Level 105 mg/dL (70-99) Calcium Level 8.9 mg/dL (8.5-10.1) Phosphorus Level 2.5 mg/dL (2.6-4.7) Magnesium Level 2.4 mg/dL (1.8-2.4) Creatine Kinase 292 U/L (26-192) Albumin 1.8 g/dL (3.4-5.0) Medications Current Medications Sodium Chloride 1,000 ml @ 100 mls/hr Q10H IV Last administered on 02/19/17t 19 :20; Start 02/19/17 at 19:00; Stop 02/20/17 at 04:59; Status DC Cefepime HCl 1 gm/ Sodium Chloride 50 ml @ 100 mls/hr Q8HRS IV ; Start 02/19/17 at 22:00; Status UNV Vancomycin HCl (Vanco Per Pharmacy) 1 each PRN DAILY PRN MC SEE COMMENTS Last administered on 02/20/17 01:14; Start 02/19/17 at 20:00; Stop 02/20/17 at 09:10; Status DC Acetaminophen (Acetaminophen Supp) 650 mg 1X ONCE [place] Last administered on 20:20; Start 02/19/17 at 20:00; Stop 02/19/17 at 20:07; Status DC Vancomycin HCl 1.25 gm/Dextrose 250 ml @ 166.667 mls/hr 1X ONCE IV Last administered on 02/19/17 21:37; Start 02/19/17 at 20:15; Stop 02/19/17 at 21:44; Status DC Cefepime HCl 1 gm/ Dextrose 100 ml @ 200 mls/hr 1X ONCE IV Last administered on 02/19/17 20:20; Start 02/19/17 at 20:15; Stop 02/19/17 at 20:44; Status DC Sodium Chloride 1,000 ml @ 150 mls/hr 1X ONCE IV Last administered on 22:09; Start 02/19/17 at 20:15; Stop 02/20/17 at 02:54; Status DC Clindamycin Phosphate 480 ml @ 960 mls/hr 1X ONCE IV ; Start 02/19/17 at 20:30 ; Stop 02/19/17 at 20:59; Status UNV Clindamycin Phosphate 50 ml @ 100 mls/hr 1X ONCE IV Last administered on 20:30; Start 02/19/17 at 20:30; Stop 02/20/17 at 09:10; Status DC Acetaminophen (Tylenol) 650 mg PRN Q4HRS PRN PO MILD PAIN; Start 02/19/17 at 22: 15 Carbidopa/Levodopa (Sinemet 25/100) 1 tab TID PO ; Start 02/20/17 at 09:00 Vitamin D (Vitamin D3) 1,000 unit DAILY PO ; Start 02/20/17 at 09:00 Magnesium Hydroxide (Milk Of Magnesia) 400 mg PRN DAILY PRN PO CONSTIPATION; Start 02/19/17 at 22:15 Risperidone (RisperDAL) 1 mg BID PO ; Start 02/20/17 at 09:00 Cetirizine HCl (ZyrTEC) 10 mg DAILY PO ; Start 02/20/17 at 09:00 Multivitamins (Thera M Plus) 1 tab DAILY PO ; Start 02/20/17 at 09:00 Pantoprazole Sodium (Protonix) 40 mg DAILYAC PO ; Start 02/20/17 at 07:30 Metoprolol Tartrate (Lopressor) 12.5 mg BID PO ; Start 02/20/17 at 09:00 Vancomycin HCl 750 mg/Dextrose 250 ml @ 250 mls/hr Q48H IV ; Start 02/21/17 at 21:00; Stop 02/21/17 at 21:00; Status DC Vancomycin HCl 1 each 1X ONCE MC ; Start 02/23/17 at 20:30; Stop 02/23/17 at 20 :30; Status DC Cefepime HCl 1 gm/ Dextrose 100 ml @ 100 mls/hr Q24H IV Last administered on 20:00; Start 02/20/17 at 20:00 Sodium Chloride 1,000 ml @ 100 mls/hr Q10H IV ; Start 02/20/17 at 06:30; Stop at 16:36; Status DC Amino Acids/ Glycerin/ Electrolytes 1,000 ml @ 80 mls/hr [id number] IV Last administered on 02/20/17t 23:05; Start 02/20/17 at 09:00 Magnesium Sulfate/ Dextrose 50 ml @ 25 mls/hr PRN DAILY PRN IV for Mag < 1.7 on am labs; Start 02/20/17 at 09:00 Potassium Phosphate 13.6 mmol/Sodium Chloride 254.5333 ml @ 127.... PRN Q2HRS PRN IV for Phos < WNL; Start 02/20/17 at 09:00 Active Scripts Active Reported Metoprolol Tartrate 25 Mg Tablet 12.5 Mg PO BID Risperdal (Risperidone) 0.5 Mg Tablet 0.5 Mg PO DAILY Miralax (Polyethylene Glycol 3350) 17 Gm Powd.pack 1 Pkt PO DAILY Vitamin D (Cholecalciferol (Vitamin D3)) 1,000 Unit Tablet 1,000 Unit PO DAILY Milk Of Magnesia (Magnesium Hydroxide) 400 Mg/5 Ml Oral.susp 400 Mg PO PRN PRN Artificial Tears (Polyvinyl Alcohol) 15 Ml Drops 2 Drop OP PRN Q4HRS PRN Acetaminophen 500 Mg Tablet 650 Mg PO PRN Q4HRS PRN Multivitamins (Multivitamin) 1 Each Tablet 1 Tab PO DAILY Risperidone 1 Mg Tablet 1 Tab PO HS Sinemet 25-100 Mg Tablet (Carbidopa/Levodopa) 1 Each Tablet 1 Tab PO TID Vitals/I & O Vital Sign - Last 24 Hours 02/20/17 02/20/17 02/20/17 02/20/17 15:00 19:20 20:05 21:00 Temp 98.7 98.6 98.7 98.6 Pulse 69 70 70 Resp 20 18 B/P (MAP) 121/43 (69) 117/41 (66) 117/41 Pulse Ox 93 93 O2 Delivery Nasal Cannula Nasal Cannula Nasal Cannula O2 Flow Rate 3.0 3.0 3.0 02/20/17 02/21/17 02/21/17 02/21/17 23:00 03:21 07:48 09:00 Temp 98.6 98.5 97.5 98.6 98.5 97.5 Pulse 87 79 79 90 Resp 24 18 46 B/P (MAP) 132/45 (74) 146/87 (106) 136/86 (103) 125/63 Pulse Ox 90 93 95 O2 Delivery Nasal Cannula Nasal Cannula Nasal Cannula O2 Flow Rate 2.0 02/21/17 10:38 Temp 97.9 97.9 Pulse 90 Resp 40 B/P (MAP) 125/63 (83) Pulse Ox 95 O2 Delivery Nasal Cannula Intake and Output 02/20/17 02/20/17 02/21/17 15:00 23:00 07:00 Intake Total 0 ml 960 ml Balance 0 ml 960 ml Nutrition Consultation Dietary Evaluation: Comments: continue ppn for short term nutrition at this time monitor care plan Expected Outcomes/Goals: unknown at this time Malnutrition Findings: Body Fat Depletion (Non Severe: Mild Depletion Weight Status: Underweight MAU TAM MD Feb 21, 2017 14:17
[2017-02-21 14:18] VITALS: BP 142/89
--- NOTE | 2017-02-21 16:00 | PDOC ---
PULMONARY PROGRESS NOTES Vitals Vital Signs Date Time Temp Pulse Resp B/P (MAP) Pulse Ox O2 Delivery O2 Flow Rate FiO2 02/21/17 14:18 97.7 79 40 142/89 (106) 93 Nasal Cannula 97.7 02/21/17 08:00 3.0 Lungs: Clear Labs Laboratory Tests Test 02/19/17 18:37 02/19/17 19:20 02/19/17 23:15 02/20/17 01:10 White Blood Count 16.7 x10^3/uL (4.0-11.0) Red Blood Count 4.31 x10^6/uL (3.50-5.40) Hemoglobin 12.0 g/dL (12.0-15.5) Hematocrit 38.6 % (36.0-47.0) Mean Corpuscular Volume 90 fL (79-100) Mean Corpuscular Hemoglobin 28 pg (25-35) Mean Corpuscular Hemoglobin Concent 31 g/dL (31-37) Red Cell Distribution Width 14.2 % (11.5-14.5) Platelet Count 375 x10^3/uL (140-400) Neutrophils (%) (Auto) 89 % (31-73) Lymphocytes (%) (Auto) 3 % (24-48) Monocytes (%) (Auto) 7 % (0-9) Eosinophils (%) (Auto) 0 % (0-3) Basophils (%) (Auto) 0 % (0-3) Neutrophils # (Auto) 14.9 x10^3uL (1.8-7.7) Lymphocytes # (Auto) 0.6 x10^3/uL (1.0-4.8) Monocytes # (Auto) 1.2 x10^3/uL (0.0-1.1) Eosinophils # (Auto) 0.0 x10^3/uL (0.0-0.7) Basophils # (Auto) 0.0 x10^3/uL (0.0-0.2) Segmented Neutrophils % 94 % (35-66) Lymphocytes % 4 % (24-48) Monocytes % 2 % (0-10) Platelet Estimate Adequate (ADEQUATE) Platelet Clumps, EDTA Present Large Platelets Occ Polychromasia Slight Ovalocytes Occ Schistocytes Occ Sodium Level 167 mmol/L (136-145) Potassium Level 5.0 mmol/L (3.5-5.1) Chloride Level 124 mmol/L (98-107) Carbon Dioxide Level 30 mmol/L (21-32) Anion Gap 13 (6-14) Blood Urea Nitrogen 45 mg/dL (7-20) Creatinine 2.0 mg/dL (0.6-1.0) Estimated GFR (Cockcroft-Gault) 23.8 Glucose Level 207 mg/dL (70-99) Lactic Acid Level 3.5 mmol/L (0.4-2.0) 0.6 mmol/L (0.4-2.0) Calcium Level 9.2 mg/dL (8.5-10.1) Troponin I Quantitative < 0.017 ng/mL (0.000-0.055) Thyroid Stimulating Hormone (TSH) 1.078 uIU/mL (0.358-3.74) Urine Color Yellow Urine Clarity Turbid Urine pH 5.0 Urine Specific Arthur 1.020 Urine Protein Negative mg/dL (NEG-TRACE) Urine Glucose (UA) Negative mg/dL (NEG) Urine Ketones (Stick) Negative mg/dL (NEG) Urine Blood Negative (NEG) Urine Nitrite Negative (NEG) Urine Bilirubin Negative (NEG) Urine Urobilinogen Dipstick 0.2 mg/dL (0.2 mg/dL) Urine Leukocyte Esterase Trace (NEG) Urine RBC 0 /HPF (0-2) Urine WBC 1-4 /HPF (0-4) Urine Squamous Epithelial Cells Mod /LPF Urine Bacteria Mod /HPF (0-FEW) Nasal Screen MRSA (PCR) Positive (Negative) Test 02/20/17 05:25 02/20/17 10:30 02/21/17 05:00 White Blood Count 10.5 x10^3/uL (4.0-11.0) Red Blood Count 3.47 x10^6/uL (3.50-5.40) Hemoglobin 9.7 g/dL (12.0-15.5) 10.6 g/dL (12.0-15.5) Hematocrit 30.5 % (36.0-47.0) Mean Corpuscular Volume 88 fL (79-100) Mean Corpuscular Hemoglobin 28 pg (25-35) Mean Corpuscular Hemoglobin Concent 32 g/dL (31-37) Red Cell Distribution Width 14.1 % (11.5-14.5) Platelet Count 254 x10^3/uL (140-400) Neutrophils (%) (Auto) 77 % (31-73) Lymphocytes (%) (Auto) 12 % (24-48) Monocytes (%) (Auto) 11 % (0-9) Eosinophils (%) (Auto) 0 % (0-3) Basophils (%) (Auto) 0 % (0-3) Neutrophils # (Auto) 8.1 x10^3uL (1.8-7.7) Lymphocytes # (Auto) 1.2 x10^3/uL (1.0-4.8) Monocytes # (Auto) 1.1 x10^3/uL (0.0-1.1) Eosinophils # (Auto) 0.0 x10^3/uL (0.0-0.7) Basophils # (Auto) 0.0 x10^3/uL (0.0-0.2) Reticulocyte Count (auto) 0.5 % (0.5-2.5) Sodium Level 167 mmol/L (136-145) 160 mmol/L (136-145) Potassium Level 4.0 mmol/L (3.5-5.1) 4.1 mmol/L (3.5-5.1) Chloride Level 130 mmol/L (98-107) 124 mmol/L (98-107) Carbon Dioxide Level 28 mmol/L (21-32) 28 mmol/L (21-32) Anion Gap 9 (6-14) 8 (6-14) Blood Urea Nitrogen 39 mg/dL (7-20) 37 mg/dL (7-20) Creatinine 1.3 mg/dL (0.6-1.0) 1.0 mg/dL (0.6-1.0) Estimated GFR (Cockcroft-Gault) 39.1 53.0 Glucose Level 95 mg/dL (70-99) 105 mg/dL (70-99) Calcium Level 7.6 mg/dL (8.5-10.1) 8.9 mg/dL (8.5-10.1) Iron Level 21 ug/dL (50-170) Total Iron Binding Capacity 215 ug/dL (250-450) Iron Saturation 10 % (15-34) Ferritin 249 ng/mL (8-252) Albumin 1.9 g/dL (3.4-5.0) 1.8 g/dL (3.4-5.0) 25-Hydroxy Vitamin D Total 37.0 ng/mL (30.0-100.0) Phosphorus Level 2.5 mg/dL (2.6-4.7) Magnesium Level 2.4 mg/dL (1.8-2.4) Creatine Kinase 292 U/L (26-192) Laboratory Tests Test 02/21/17 05:00 Hemoglobin 10.6 g/dL (12.0-15.5) Sodium Level 160 mmol/L (136-145) Potassium Level 4.1 mmol/L (3.5-5.1) Chloride Level 124 mmol/L (98-107) Carbon Dioxide Level 28 mmol/L (21-32) Anion Gap 8 (6-14) Blood Urea Nitrogen 37 mg/dL (7-20) Creatinine 1.0 mg/dL (0.6-1.0) Estimated GFR (Cockcroft-Gault) 53.0 Glucose Level 105 mg/dL (70-99) Calcium Level 8.9 mg/dL (8.5-10.1) Phosphorus Level 2.5 mg/dL (2.6-4.7) Magnesium Level 2.4 mg/dL (1.8-2.4) Creatine Kinase 292 U/L (26-192) Albumin 1.8 g/dL (3.4-5.0) Medications Active Scripts Medications Dose Route/Sig Max Daily Dose Days Date Category Metoprolol Tartrate 25 Mg Tablet 12.5 Mg PO BID 02/20/17 Reported Risperdal (Risperidone) 0.5 Mg Tablet 0.5 Mg PO DAILY 02/20/17 Reported Miralax (Polyethylene Glycol 3350) 17 Gm Powd.pack 1 Pkt PO DAILY 02/20/17 Reported Vitamin D (Cholecalciferol (Vitamin D3)) 1,000 Unit Tablet 1,000 Unit PO DAILY 01/23/15 Reported Milk Of Magnesia (Magnesium Hydroxide) 400 Mg/5 Ml Oral.susp 400 Mg PO PRN PRN 01/23/15 Reported Artificial Tears (Polyvinyl Alcohol) 15 Ml Drops 2 Drop OP PRN Q4HRS PRN 01/23/15 Reported Acetaminophen 500 Mg Tablet 650 Mg PO PRN Q4HRS PRN 01/23/15 Reported Multivitamins (Multivitamin) 1 Each Tablet 1 Tab PO DAILY 01/23/15 Reported Risperidone 1 Mg Tablet 1 Tab PO HS 01/22/15 Reported Sinemet 25-100 Mg Tablet (Carbidopa/Levodopa) 1 Each Tablet 1 Tab PO TID 01/22/15 Reported Impression . Assessment/Plan PNEUMONIA MET/TOXIC ENCEPHALOPATHY FEVER/ LEUKOCYTOSIS HYPERNATREMIA DEMENTIA Plan . PLAN CONTINUE ANTIBX IF FLUIDS PER NEPHRO POOR PROGNOSIS SILVANO BEAN MD Feb 21, 2017 15:59
[2017-02-21 16:14] LABS: PTH INTACT 76 pg/mL (15-65)
--- NOTE | 2017-02-21 16:21 | PDOC ---
PULMONARY PROGRESS NOTES Subjective PT LESS SOA ON 02 Vitals Vital Signs Date Time Temp Pulse Resp B/P (MAP) Pulse Ox O2 Delivery O2 Flow Rate FiO2 02/21/17 14:18 97.7 79 40 142/89 (106) 93 Nasal Cannula 97.7 02/21/17 08:00 3.0 Lungs: Crackles Cardiovascular: S1, S2 Abdomen: Soft Extremities: No Edema Skin: Warm Labs Laboratory Tests Test 02/19/17 18:37 02/19/17 19:20 02/19/17 23:15 02/20/17 01:10 White Blood Count 16.7 x10^3/uL (4.0-11.0) Red Blood Count 4.31 x10^6/uL (3.50-5.40) Hemoglobin 12.0 g/dL (12.0-15.5) Hematocrit 38.6 % (36.0-47.0) Mean Corpuscular Volume 90 fL (79-100) Mean Corpuscular Hemoglobin 28 pg (25-35) Mean Corpuscular Hemoglobin Concent 31 g/dL (31-37) Red Cell Distribution Width 14.2 % (11.5-14.5) Platelet Count 375 x10^3/uL (140-400) Neutrophils (%) (Auto) 89 % (31-73) Lymphocytes (%) (Auto) 3 % (24-48) Monocytes (%) (Auto) 7 % (0-9) Eosinophils (%) (Auto) 0 % (0-3) Basophils (%) (Auto) 0 % (0-3) Neutrophils # (Auto) 14.9 x10^3uL (1.8-7.7) Lymphocytes # (Auto) 0.6 x10^3/uL (1.0-4.8) Monocytes # (Auto) 1.2 x10^3/uL (0.0-1.1) Eosinophils # (Auto) 0.0 x10^3/uL (0.0-0.7) Basophils # (Auto) 0.0 x10^3/uL (0.0-0.2) Segmented Neutrophils % 94 % (35-66) Lymphocytes % 4 % (24-48) Monocytes % 2 % (0-10) Platelet Estimate Adequate (ADEQUATE) Platelet Clumps, EDTA Present Large Platelets Occ Polychromasia Slight Ovalocytes Occ Schistocytes Occ Sodium Level 167 mmol/L (136-145) Potassium Level 5.0 mmol/L (3.5-5.1) Chloride Level 124 mmol/L (98-107) Carbon Dioxide Level 30 mmol/L (21-32) Anion Gap 13 (6-14) Blood Urea Nitrogen 45 mg/dL (7-20) Creatinine 2.0 mg/dL (0.6-1.0) Estimated GFR (Cockcroft-Gault) 23.8 Glucose Level 207 mg/dL (70-99) Lactic Acid Level 3.5 mmol/L (0.4-2.0) 0.6 mmol/L (0.4-2.0) Calcium Level 9.2 mg/dL (8.5-10.1) Troponin I Quantitative < 0.017 ng/mL (0.000-0.055) Thyroid Stimulating Hormone (TSH) 1.078 uIU/mL (0.358-3.74) Urine Color Yellow Urine Clarity Turbid Urine pH 5.0 Urine Specific Max 1.020 Urine Protein Negative mg/dL (NEG-TRACE) Urine Glucose (UA) Negative mg/dL (NEG) Urine Ketones (Stick) Negative mg/dL (NEG) Urine Blood Negative (NEG) Urine Nitrite Negative (NEG) Urine Bilirubin Negative (NEG) Urine Urobilinogen Dipstick 0.2 mg/dL (0.2 mg/dL) Urine Leukocyte Esterase Trace (NEG) Urine RBC 0 /HPF (0-2) Urine WBC 1-4 /HPF (0-4) Urine Squamous Epithelial Cells Mod /LPF Urine Bacteria Mod /HPF (0-FEW) Nasal Screen MRSA (PCR) Positive (Negative) Test 02/20/17 05:25 02/20/17 10:30 02/21/17 05:00 White Blood Count 10.5 x10^3/uL (4.0-11.0) Red Blood Count 3.47 x10^6/uL (3.50-5.40) Hemoglobin 9.7 g/dL (12.0-15.5) 10.6 g/dL (12.0-15.5) Hematocrit 30.5 % (36.0-47.0) Mean Corpuscular Volume 88 fL (79-100) Mean Corpuscular Hemoglobin 28 pg (25-35) Mean Corpuscular Hemoglobin Concent 32 g/dL (31-37) Red Cell Distribution Width 14.1 % (11.5-14.5) Platelet Count 254 x10^3/uL (140-400) Neutrophils (%) (Auto) 77 % (31-73) Lymphocytes (%) (Auto) 12 % (24-48) Monocytes (%) (Auto) 11 % (0-9) Eosinophils (%) (Auto) 0 % (0-3) Basophils (%) (Auto) 0 % (0-3) Neutrophils # (Auto) 8.1 x10^3uL (1.8-7.7) Lymphocytes # (Auto) 1.2 x10^3/uL (1.0-4.8) Monocytes # (Auto) 1.1 x10^3/uL (0.0-1.1) Eosinophils # (Auto) 0.0 x10^3/uL (0.0-0.7) Basophils # (Auto) 0.0 x10^3/uL (0.0-0.2) Reticulocyte Count (auto) 0.5 % (0.5-2.5) Sodium Level 167 mmol/L (136-145) 160 mmol/L (136-145) Potassium Level 4.0 mmol/L (3.5-5.1) 4.1 mmol/L (3.5-5.1) Chloride Level 130 mmol/L (98-107) 124 mmol/L (98-107) Carbon Dioxide Level 28 mmol/L (21-32) 28 mmol/L (21-32) Anion Gap 9 (6-14) 8 (6-14) Blood Urea Nitrogen 39 mg/dL (7-20) 37 mg/dL (7-20) Creatinine 1.3 mg/dL (0.6-1.0) 1.0 mg/dL (0.6-1.0) Estimated GFR (Cockcroft-Gault) 39.1 53.0 Glucose Level 95 mg/dL (70-99) 105 mg/dL (70-99) Calcium Level 7.6 mg/dL (8.5-10.1) 8.9 mg/dL (8.5-10.1) Estimated GFR (Non- 46 (>59) Iron Level 21 ug/dL (50-170) Total Iron Binding Capacity 215 ug/dL (250-450) Iron Saturation 10 % (15-34) Ferritin 249 ng/mL (8-252) Albumin 1.9 g/dL (3.4-5.0) 1.8 g/dL (3.4-5.0) EGFR 53 (>59) 25-Hydroxy Vitamin D Total 37.0 ng/mL (30.0-100.0) PTH (Intact) Specimen Description Comment (.) Parathyroid Hormone (Intact) 76 pg/mL (15-65) Calcium (PTH Intact) 7.7 mg/dL (8.7-10.3) Creatinine (PTH Intact) 1.11 mg/dL (0.57-1.00) Phosphorus (PTH Intact) 3.7 mg/dL (2.5-4.5) Phosphorus Level 2.5 mg/dL (2.6-4.7) Magnesium Level 2.4 mg/dL (1.8-2.4) Creatine Kinase 292 U/L (26-192) Laboratory Tests Test 02/21/17 05:00 Hemoglobin 10.6 g/dL (12.0-15.5) Sodium Level 160 mmol/L (136-145) Potassium Level 4.1 mmol/L (3.5-5.1) Chloride Level 124 mmol/L (98-107) Carbon Dioxide Level 28 mmol/L (21-32) Anion Gap 8 (6-14) Blood Urea Nitrogen 37 mg/dL (7-20) Creatinine 1.0 mg/dL (0.6-1.0) Estimated GFR (Cockcroft-Gault) 53.0 Glucose Level 105 mg/dL (70-99) Calcium Level 8.9 mg/dL (8.5-10.1) Phosphorus Level 2.5 mg/dL (2.6-4.7) Magnesium Level 2.4 mg/dL (1.8-2.4) Creatine Kinase 292 U/L (26-192) Albumin 1.8 g/dL (3.4-5.0) Medications Active Scripts Medications Dose Route/Sig Max Daily Dose Days Date Category Metoprolol Tartrate 25 Mg Tablet 12.5 Mg PO BID 02/20/17 Reported Risperdal (Risperidone) 0.5 Mg Tablet 0.5 Mg PO DAILY 02/20/17 Reported Miralax (Polyethylene Glycol 3350) 17 Gm Powd.pack 1 Pkt PO DAILY 02/20/17 Reported Vitamin D (Cholecalciferol (Vitamin D3)) 1,000 Unit Tablet 1,000 Unit PO DAILY 01/23/15 Reported Milk Of Magnesia (Magnesium Hydroxide) 400 Mg/5 Ml Oral.susp 400 Mg PO PRN PRN 01/23/15 Reported Artificial Tears (Polyvinyl Alcohol) 15 Ml Drops 2 Drop OP PRN Q4HRS PRN 01/23/15 Reported Acetaminophen 500 Mg Tablet 650 Mg PO PRN Q4HRS PRN 01/23/15 Reported Multivitamins (Multivitamin) 1 Each Tablet 1 Tab PO DAILY 01/23/15 Reported Risperidone 1 Mg Tablet 1 Tab PO HS 01/22/15 Reported Sinemet 25-100 Mg Tablet (Carbidopa/Levodopa) 1 Each Tablet 1 Tab PO TID 01/22/15 Reported Impression . Assessment/Plan PNEUMONIA MET/TOXIC ENCEPHALOPATHY FEVER/ LEUKOCYTOSIS HYPERNATREMIA DEMENTIA Plan . CONTINUE ANTIBX IF FLUIDS PER NEPHRO POOR PROGNOSIS SILVANO BEAN MD Feb 21, 2017 16:21
[2017-02-21] MEDS: AMINO AC 3%/ELECTROLYTE/GLYCER 1,000 ML IV SCH ×2 (18:17→19:54)
[2017-02-21 19:00] VITALS: BP 127/84
[2017-02-21] MEDS: CEFEPIME HCL 1 GM in IV DEXTROSE 5% 100 ML IV SCH (19:53)
[2017-02-21] MEDS ORDERED: VANCOMYCIN 750 MG in IV DEXTROSE 5% 250 ML IV SCH (21:00)
[2017-02-21 23:00] VITALS: BP 115/63
[2017-02-22] MEDS: IV NORMAL SALINE 1000ML BAG 1,000 ML IV SCH ×2 (00:31→11:50)
[2017-02-22 03:00] VITALS: BP 127/54
[2017-02-22] MEDS: PANTOPRAZOLE 40 MG TABLET.DR. PO SCH (04:24)
[2017-02-22 07:04] LABS: MAGNESIUM 2.3 mg/dL (1.8-2.4)
[2017-02-22 07:11] LABS: ALBUMIN 1.7 g/dL (3.4-5.0); CALCIUM 8.3 mg/dL (8.5-10.1); CREATININE 0.8 mg/dL (0.6-1.0); GFR 68.5; PHOSPHORUS 2.7 mg/dL (2.6-4.7); POTASSIUM 4.2 mmol/L (3.5-5.1)
--- NOTE | 2017-02-22 07:18 | PDOC ---
Infectious Disease Note Subjective Subjective more awake - better ROS ROS GEN: Denies fevers, chills, sweats HEENT: Denies blurred vision, sore throat CV: Denies chest pain RESP: Denies shortness of air, cough GI: Denies n/v/d NEURO: Denies confusion, dizziness MSK: Denies weakness, joint pain/swelling Vital Sign Vital Signs Vital Signs Date Time Temp Pulse Resp B/P (MAP) Pulse Ox O2 Delivery O2 Flow Rate FiO2 02/22/17 03:00 97.9 70 30 127/54 (78) 92 Nasal Cannula 1.5 97.9 Physical Exam PHYSICAL EXAM GENERAL: NAD, Alert, coop HEENT: PERRL, OC/OP -poor dentition NECK: Supple, no JVD, no LN LUNGS: Clear HEART: S1S2, no gallop, no murmur ABD: Soft, NT, no organomegaly, no rebound EXT: No edema, no cyanosis THERAPY TECH: Alert, oriented to name, no focal neurologic deficit SKIN: No rash IV: ok Labs Lab Laboratory Tests Test 02/22/17 04:30 Sodium Level 153 mmol/L (136-145) Potassium Level 4.2 mmol/L (3.5-5.1) Chloride Level 118 mmol/L (98-107) Carbon Dioxide Level 25 mmol/L (21-32) Anion Gap 10 (6-14) Blood Urea Nitrogen 30 mg/dL (7-20) Creatinine 0.8 mg/dL (0.6-1.0) Estimated GFR (Cockcroft-Gault) 68.5 Glucose Level 96 mg/dL (70-99) Calcium Level 8.3 mg/dL (8.5-10.1) Phosphorus Level 2.7 mg/dL (2.6-4.7) Magnesium Level 2.3 mg/dL (1.8-2.4) Creatine Kinase 137 U/L (26-192) Albumin 1.7 g/dL (3.4-5.0) Objective Assessment Leukocytosis Fever Encephalopathy - better Dehydration + MRSA Hypernatremia Renal failure - better Dementia Plan Plan of Care cont Cefepime/ Vanc /c'd supportive care check cultures/labs CARLOS LANDEROS MD Feb 22, 2017 07:18
[2017-02-22 07:40] VITALS: BP 138/54
[2017-02-22] MEDS: CARBIDOPA/LEVODOPA 25/100MG TABLET PO SCH ×3 (09:00→20:00)
[2017-02-22] MEDS: CHOLECALCIFEROL (VITAMIN D3) 1,000 UNIT TABLET PO SCH (09:00)
[2017-02-22] MEDS: risperiDONE 1 MG TABLET. PO SCH ×2 (09:00→20:01)
[2017-02-22] MEDS: CETIRIZINE HCL 10 MG TABLET. PO SCH (09:00)
[2017-02-22] MEDS: MULTIVITAMIN with MINERAL TABLET. PO SCH (09:00)
[2017-02-22] MEDS: METOPROLOL TART IMMED RELEASE 25 MG TABLET. PO SCH ×2 (09:00→20:01)
[2017-02-22] MEDS: AMINO AC 3%/ELECTROLYTE/GLYCER 1,000 ML IV SCH ×2 (09:12→19:59)
[2017-02-22 10:56] VITALS: BP 123/50
--- NOTE | 2017-02-22 12:07 | PDOC ---
PROGRESS NOTES Chief Complaint Chief Complaint cc: fever A/P HYPERNATREMIA POSSIBLE PNEUMONIA DEHYDRATION SEVERE FEVERS MALNUTRITION ALTERED MENTAL STATUS/ ENCEPHALOPATHY, POSSIBLE BASELINE STATE Plan: on ProcalAmine. Continue current antibiotics and blood cultures pending, D/W ID, RN, No family available, She appears to be more nourished will continue ProcalAmine and encouraged oral intake. speech and swallow evaluation, d/w RN Monitor sodium very closely. Improving now Continue antibiotics. Physical therapy and occupational therapy ordered Prognosis guarded. Infectious disease and nephrology has been following. History of Present Illness History of Present Illness MORE ALERT NO FEVER DOING OK Vitals Vitals Vital Signs Date Time Temp Pulse Resp B/P (MAP) Pulse Ox O2 Delivery O2 Flow Rate FiO2 02/22/17 10:56 97.9 71 44 123/50 (74) 92 Nasal Cannula 1.5 97.9 Physical Exam General: Alert, Other (THIN BUILT, ) Heart: Regular rate, Normal S1, Normal S2, No murmurs, Gallops Lungs: Crackles Abdomen: Normal bowel sounds, Soft, No tenderness, No hepatosplenomegaly, No masses Extremities: No clubbing, No cyanosis, No edema, Normal pulses, No tenderness/ swelling Labs LABS Laboratory Tests Test 02/22/17 04:30 Sodium Level 153 mmol/L (136-145) Potassium Level 4.2 mmol/L (3.5-5.1) Chloride Level 118 mmol/L (98-107) Carbon Dioxide Level 25 mmol/L (21-32) Anion Gap 10 (6-14) Blood Urea Nitrogen 30 mg/dL (7-20) Creatinine 0.8 mg/dL (0.6-1.0) Estimated GFR (Cockcroft-Gault) 68.5 Glucose Level 96 mg/dL (70-99) Calcium Level 8.3 mg/dL (8.5-10.1) Phosphorus Level 2.7 mg/dL (2.6-4.7) Magnesium Level 2.3 mg/dL (1.8-2.4) Creatine Kinase 137 U/L (26-192) Albumin 1.7 g/dL (3.4-5.0) Comment Review of Relevant I have reviewed the following items giovanni (where applicable) has been applied. Labs Laboratory Tests Test 02/21/17 05:00 02/22/17 04:30 Hemoglobin 10.6 g/dL (12.0-15.5) Sodium Level 160 mmol/L (136-145) 153 mmol/L (136-145) Potassium Level 4.1 mmol/L (3.5-5.1) 4.2 mmol/L (3.5-5.1) Chloride Level 124 mmol/L (98-107) 118 mmol/L (98-107) Carbon Dioxide Level 28 mmol/L (21-32) 25 mmol/L (21-32) Anion Gap 8 (6-14) 10 (6-14) Blood Urea Nitrogen 37 mg/dL (7-20) 30 mg/dL (7-20) Creatinine 1.0 mg/dL (0.6-1.0) 0.8 mg/dL (0.6-1.0) Estimated GFR (Cockcroft-Gault) 53.0 68.5 Glucose Level 105 mg/dL (70-99) 96 mg/dL (70-99) Calcium Level 8.9 mg/dL (8.5-10.1) 8.3 mg/dL (8.5-10.1) Phosphorus Level 2.5 mg/dL (2.6-4.7) 2.7 mg/dL (2.6-4.7) Magnesium Level 2.4 mg/dL (1.8-2.4) 2.3 mg/dL (1.8-2.4) Creatine Kinase 292 U/L (26-192) 137 U/L (26-192) Albumin 1.8 g/dL (3.4-5.0) 1.7 g/dL (3.4-5.0) Laboratory Tests Test 02/22/17 04:30 Sodium Level 153 mmol/L (136-145) Potassium Level 4.2 mmol/L (3.5-5.1) Chloride Level 118 mmol/L (98-107) Carbon Dioxide Level 25 mmol/L (21-32) Anion Gap 10 (6-14) Blood Urea Nitrogen 30 mg/dL (7-20) Creatinine 0.8 mg/dL (0.6-1.0) Estimated GFR (Cockcroft-Gault) 68.5 Glucose Level 96 mg/dL (70-99) Calcium Level 8.3 mg/dL (8.5-10.1) Phosphorus Level 2.7 mg/dL (2.6-4.7) Magnesium Level 2.3 mg/dL (1.8-2.4) Creatine Kinase 137 U/L (26-192) Albumin 1.7 g/dL (3.4-5.0) Medications Current Medications Sodium Chloride 1,000 ml @ 100 mls/hr Q10H IV Last administered on 02/19/17 19 :20; Start 02/19/17 at 19:00; Stop 02/20/17 at 04:59; Status DC Cefepime HCl 1 gm/ Sodium Chloride 50 ml @ 100 mls/hr Q8HRS IV ; Start 02/19/17 at 22:00; Status UNV Vancomycin HCl (Vanco Per Pharmacy) 1 each PRN DAILY PRN MC SEE COMMENTS Last administered on 02/20/17 01:14; Start 02/19/17 at 20:00; Stop 02/20/17 at 09:10; Status DC Acetaminophen (Acetaminophen Supp) 650 mg 1X ONCE HI Last administered on 20:20; Start 02/19/17 at 20:00; Stop 02/19/17 at 20:07; Status DC Vancomycin HCl 1.25 gm/Dextrose 250 ml @ 166.667 mls/hr 1X ONCE IV Last administered on 02/19/17 21:37; Start 02/19/17 at 20:15; Stop 02/19/17 at 21:44; Status DC Cefepime HCl 1 gm/ Dextrose 100 ml @ 200 mls/hr 1X ONCE IV Last administered on 02/19/17 20:20; Start 02/19/17 at 20:15; Stop 02/19/17 at 20:44; Status DC Sodium Chloride 1,000 ml @ 150 mls/hr 1X ONCE IV Last administered on 22:09; Start 02/19/17 at 20:15; Stop 02/20/17 at 02:54; Status DC Clindamycin Phosphate 480 ml @ 960 mls/hr 1X ONCE IV ; Start 02/19/17 at 20:30 ; Stop 02/19/17 at 20:59; Status UNV Clindamycin Phosphate 50 ml @ 100 mls/hr 1X ONCE IV Last administered on 20:30; Start 02/19/17 at 20:30; Stop 02/20/17 at 09:10; Status DC Acetaminophen (Tylenol) 650 mg PRN Q4HRS PRN PO MILD PAIN; Start 02/19/17 at 22: 15 Carbidopa/Levodopa (Sinemet 25/100) 1 tab TID PO ; Start 02/20/17 at 09:00 Vitamin D (Vitamin D3) 1,000 unit DAILY PO ; Start 02/20/17 at 09:00 Magnesium Hydroxide (Milk Of Magnesia) 400 mg PRN DAILY PRN PO CONSTIPATION; Start 02/19/17 at 22:15 Risperidone (RisperDAL) 1 mg BID PO ; Start 02/20/17 at 09:00 Cetirizine HCl (ZyrTEC) 10 mg DAILY PO ; Start 02/20/17 at 09:00 Multivitamins (Thera M Plus) 1 tab DAILY PO ; Start 02/20/17 at 09:00 Pantoprazole Sodium (Protonix) 40 mg DAILYAC PO ; Start 02/20/17 at 07:30 Metoprolol Tartrate (Lopressor) 12.5 mg BID PO ; Start 02/20/17 at 09:00 Vancomycin HCl 750 mg/Dextrose 250 ml @ 250 mls/hr Q48H IV ; Start 02/21/17 at 21:00; Stop 02/21/17 at 21:00; Status DC Vancomycin HCl 1 each 1X ONCE MC ; Start 02/23/17 at 20:30; Stop 02/23/17 at 20 :30; Status DC Cefepime HCl 1 gm/ Dextrose 100 ml @ 100 mls/hr Q24H IV Last administered on 19:53; Start 02/20/17 at 20:00 Sodium Chloride 1,000 ml @ 100 mls/hr Q10H IV ; Start 02/20/17 at 06:30; Stop at 16:36; Status DC Amino Acids/ Glycerin/ Electrolytes 1,000 ml @ 80 mls/hr [id number] IV Last administered on 02/22/17 09:12; Start 02/20/17 at 09:00 Magnesium Sulfate/ Dextrose 50 ml @ 25 mls/hr PRN DAILY PRN IV for Mag < 1.7 on am labs; Start 02/20/17 at 09:00 Potassium Phosphate 13.6 mmol/Sodium Chloride 254.5333 ml @ 127.... PRN Q2HRS PRN IV for Phos < WNL; Start 02/20/17 at 09:00 Sodium Chloride 1,000 ml @ 75 mls/hr [id number] IV Last administered on 02/22/17t 00:31; Start 02/21/17 at 22:30 Active Scripts Active Reported Metoprolol Tartrate 25 Mg Tablet 12.5 Mg PO BID Risperdal (Risperidone) 0.5 Mg Tablet 0.5 Mg PO DAILY Miralax (Polyethylene Glycol 3350) 17 Gm Powd.pack 1 Pkt PO DAILY Vitamin D (Cholecalciferol (Vitamin D3)) 1,000 Unit Tablet 1,000 Unit PO DAILY Milk Of Magnesia (Magnesium Hydroxide) 400 Mg/5 Ml Oral.susp 400 Mg PO PRN PRN Artificial Tears (Polyvinyl Alcohol) 15 Ml Drops 2 Drop OP PRN Q4HRS PRN Acetaminophen 500 Mg Tablet 650 Mg PO PRN Q4HRS PRN Multivitamins (Multivitamin) 1 Each Tablet 1 Tab PO DAILY Risperidone 1 Mg Tablet 1 Tab PO HS Sinemet 25-100 Mg Tablet (Carbidopa/Levodopa) 1 Each Tablet 1 Tab PO TID Vitals/I & O Vital Sign - Last 24 Hours 02/21/17 02/21/17 02/21/17 02/21/17 14:18 19:00 20:00 23:00 Temp 97.7 98.1 98.3 97.7 98.1 98.3 Pulse 79 77 66 Resp 40 36 38 B/P (MAP) 142/89 (106) 127/84 (98) 115/63 (80) Pulse Ox 93 95 93 O2 Delivery Nasal Cannula Nasal Cannula Nasal Cannula Nasal Cannula O2 Flow Rate 1.5 3.0 1.5 02/22/17 02/22/17 02/22/17 02/22/17 03:00 07:40 08:00 10:56 Temp 97.9 97.9 97.9 97.9 97.9 97.9 Pulse 70 70 71 Resp 30 40 44 B/P (MAP) 127/54 (78) 138/54 (82) 123/50 (74) Pulse Ox 92 92 92 O2 Delivery Nasal Cannula Nasal Cannula Nasal Cannula Nasal Cannula O2 Flow Rate 1.5 1.5 1.5 1.5 Intake and Output 02/21/17 02/21/17 02/22/17 15:00 23:00 07:00 Intake Total 0 ml Balance 0 ml Nutrition Consultation Dietary Evaluation: Comments: continue ppn for short term nutrition at this time monitor care plan Expected Outcomes/Goals: unknown at this time Malnutrition Findings: Body Fat Depletion (Non Severe: Mild Depletion Weight Status: Underweight KAMILA LUO MD Feb 22, 2017 12:07
--- NOTE | 2017-02-22 12:51 | PDOC ---
PROGRESS NOTES Subjective Subjective seen in follow up of hypernatremia Objective Objective Vital Signs Date Time Temp Pulse Resp B/P (MAP) Pulse Ox O2 Delivery O2 Flow Rate FiO2 02/22/17 10:56 97.9 71 44 123/50 (74) 92 Nasal Cannula 1.5 97.9 Intake and Output 02/22/17 07:00 Intake Total 0 ml Balance 0 ml Intake Oral 0 ml # Voids 6 # Bowel Movements 3 Physical Exam Abdomen: Normal bowel sounds, Soft, No tenderness, No hepatosplenomegaly, No masses Heart: Regular rate, Normal S1, Normal S2, No murmurs, Gallops Extremities: No clubbing, No cyanosis, No edema, Normal pulses, No tenderness/ swelling Lungs: Clear to auscultation, Normal air movement Diagnosis RENAL FAILURE: Other (hypernatremia) Plan Plan of Care better daily, cont fluids Comment Review of Relevant I have reviewed the following items giovanni (where applicable) has been applied. Labs Laboratory Tests Test 02/21/17 05:00 02/22/17 04:30 Hemoglobin 10.6 g/dL (12.0-15.5) Sodium Level 160 mmol/L (136-145) 153 mmol/L (136-145) Potassium Level 4.1 mmol/L (3.5-5.1) 4.2 mmol/L (3.5-5.1) Chloride Level 124 mmol/L (98-107) 118 mmol/L (98-107) Carbon Dioxide Level 28 mmol/L (21-32) 25 mmol/L (21-32) Anion Gap 8 (6-14) 10 (6-14) Blood Urea Nitrogen 37 mg/dL (7-20) 30 mg/dL (7-20) Creatinine 1.0 mg/dL (0.6-1.0) 0.8 mg/dL (0.6-1.0) Estimated GFR (Cockcroft-Gault) 53.0 68.5 Glucose Level 105 mg/dL (70-99) 96 mg/dL (70-99) Calcium Level 8.9 mg/dL (8.5-10.1) 8.3 mg/dL (8.5-10.1) Phosphorus Level 2.5 mg/dL (2.6-4.7) 2.7 mg/dL (2.6-4.7) Magnesium Level 2.4 mg/dL (1.8-2.4) 2.3 mg/dL (1.8-2.4) Creatine Kinase 292 U/L (26-192) 137 U/L (26-192) Albumin 1.8 g/dL (3.4-5.0) 1.7 g/dL (3.4-5.0) Laboratory Tests Test 02/22/17 04:30 Sodium Level 153 mmol/L (136-145) Potassium Level 4.2 mmol/L (3.5-5.1) Chloride Level 118 mmol/L (98-107) Carbon Dioxide Level 25 mmol/L (21-32) Anion Gap 10 (6-14) Blood Urea Nitrogen 30 mg/dL (7-20) Creatinine 0.8 mg/dL (0.6-1.0) Estimated GFR (Cockcroft-Gault) 68.5 Glucose Level 96 mg/dL (70-99) Calcium Level 8.3 mg/dL (8.5-10.1) Phosphorus Level 2.7 mg/dL (2.6-4.7) Magnesium Level 2.3 mg/dL (1.8-2.4) Creatine Kinase 137 U/L (26-192) Albumin 1.7 g/dL (3.4-5.0) Medications Current Medications Sodium Chloride 1,000 ml @ 100 mls/hr Q10H IV Last administered on 02/19/17 19 :20; Start 02/19/17 at 19:00; Stop 02/20/17 at 04:59; Status DC Cefepime HCl 1 gm/ Sodium Chloride 50 ml @ 100 mls/hr Q8HRS IV ; Start 02/19/17 at 22:00; Status UNV Vancomycin HCl (Vanco Per Pharmacy) 1 each PRN DAILY PRN MC SEE COMMENTS Last administered on 02/20/17 01:14; Start 02/19/17 at 20:00; Stop 02/20/17 at 09:10; Status DC Acetaminophen (Acetaminophen Supp) 650 mg 1X ONCE [place] Last administered on 20:20; Start 02/19/17 at 20:00; Stop 02/19/17 at 20:07; Status DC Vancomycin HCl 1.25 gm/Dextrose 250 ml @ 166.667 mls/hr 1X ONCE IV Last administered on 02/19/17 21:37; Start 02/19/17 at 20:15; Stop 02/19/17 at 21:44; Status DC Cefepime HCl 1 gm/ Dextrose 100 ml @ 200 mls/hr 1X ONCE IV Last administered on 02/19/17 20:20; Start 02/19/17 at 20:15; Stop 02/19/17 at 20:44; Status DC Sodium Chloride 1,000 ml @ 150 mls/hr 1X ONCE IV Last administered on 22:09; Start 02/19/17 at 20:15; Stop 02/20/17 at 02:54; Status DC Clindamycin Phosphate 480 ml @ 960 mls/hr 1X ONCE IV ; Start 02/19/17 at 20:30 ; Stop 02/19/17 at 20:59; Status UNV Clindamycin Phosphate 50 ml @ 100 mls/hr 1X ONCE IV Last administered on 20:30; Start 02/19/17 at 20:30; Stop 02/20/17 at 09:10; Status DC Acetaminophen (Tylenol) 650 mg PRN Q4HRS PRN PO MILD PAIN; Start 02/19/17 at 22: 15 Carbidopa/Levodopa (Sinemet 25/100) 1 tab TID PO ; Start 02/20/17 at 09:00 Vitamin D (Vitamin D3) 1,000 unit DAILY PO ; Start 02/20/17 at 09:00 Magnesium Hydroxide (Milk Of Magnesia) 400 mg PRN DAILY PRN PO CONSTIPATION; Start 02/19/17 at 22:15 Risperidone (RisperDAL) 1 mg BID PO ; Start 02/20/17 at 09:00 Cetirizine HCl (ZyrTEC) 10 mg DAILY PO ; Start 02/20/17 at 09:00 Multivitamins (Thera M Plus) 1 tab DAILY PO ; Start 02/20/17 at 09:00 Pantoprazole Sodium (Protonix) 40 mg DAILYAC PO ; Start 02/20/17 at 07:30 Metoprolol Tartrate (Lopressor) 12.5 mg BID PO ; Start 02/20/17 at 09:00 Vancomycin HCl 750 mg/Dextrose 250 ml @ 250 mls/hr Q48H IV ; Start 02/21/17 at 21:00; Stop 02/21/17 at 21:00; Status DC Vancomycin HCl 1 each 1X ONCE MC ; Start 02/23/17 at 20:30; Stop 02/23/17 at 20 :30; Status DC Cefepime HCl 1 gm/ Dextrose 100 ml @ 100 mls/hr Q24H IV Last administered on 19:53; Start 02/20/17 at 20:00 Sodium Chloride 1,000 ml @ 100 mls/hr Q10H IV ; Start 02/20/17 at 06:30; Stop at 16:36; Status DC Amino Acids/ Glycerin/ Electrolytes 1,000 ml @ 80 mls/hr [id number] IV Last administered on 02/22/17 09:12; Start 02/20/17 at 09:00 Magnesium Sulfate/ Dextrose 50 ml @ 25 mls/hr PRN DAILY PRN IV for Mag < 1.7 on am labs; Start 02/20/17 at 09:00 Potassium Phosphate 13.6 mmol/Sodium Chloride 254.5333 ml @ 127.... PRN Q2HRS PRN IV for Phos < WNL; Start 02/20/17 at 09:00 Sodium Chloride 1,000 ml @ 75 mls/hr [id number] IV Last administered on 02/22/17 00:31; Start 02/21/17 at 22:30; Stop 02/22/17 at 12:06; Status DC Active Scripts Active Reported Metoprolol Tartrate 25 Mg Tablet 12.5 Mg PO BID Risperdal (Risperidone) 0.5 Mg Tablet 0.5 Mg PO DAILY Miralax (Polyethylene Glycol 3350) 17 Gm Powd.pack 1 Pkt PO DAILY Vitamin D (Cholecalciferol (Vitamin D3)) 1,000 Unit Tablet 1,000 Unit PO DAILY Milk Of Magnesia (Magnesium Hydroxide) 400 Mg/5 Ml Oral.susp 400 Mg PO PRN PRN Artificial Tears (Polyvinyl Alcohol) 15 Ml Drops 2 Drop OP PRN Q4HRS PRN Acetaminophen 500 Mg Tablet 650 Mg PO PRN Q4HRS PRN Multivitamins (Multivitamin) 1 Each Tablet 1 Tab PO DAILY Risperidone 1 Mg Tablet 1 Tab PO HS Sinemet 25-100 Mg Tablet (Carbidopa/Levodopa) 1 Each Tablet 1 Tab PO TID Vitals/I & O Vital Sign - Last 24 Hours 02/21/17 02/21/17 02/21/17 02/21/17 14:18 19:00 20:00 23:00 Temp 97.7 98.1 98.3 97.7 98.1 98.3 Pulse 79 77 66 Resp 40 36 38 B/P (MAP) 142/89 (106) 127/84 (98) 115/63 (80) Pulse Ox 93 95 93 O2 Delivery Nasal Cannula Nasal Cannula Nasal Cannula Nasal Cannula O2 Flow Rate 1.5 3.0 1.5 02/22/17 02/22/17 02/22/17 02/22/17 03:00 07:40 08:00 10:56 Temp 97.9 97.9 97.9 97.9 97.9 97.9 Pulse 70 70 71 Resp 30 40 44 B/P (MAP) 127/54 (78) 138/54 (82) 123/50 (74) Pulse Ox 92 92 92 O2 Delivery Nasal Cannula Nasal Cannula Nasal Cannula Nasal Cannula O2 Flow Rate 1.5 1.5 1.5 1.5 Intake and Output 02/21/17 02/21/17 02/22/17 15:00 23:00 07:00 Intake Total 0 ml Balance 0 ml Nutrition Consultation Dietary Evaluation: Comments: continue ppn for short term nutrition at this time monitor care plan Expected Outcomes/Goals: unknown at this time Malnutrition Findings: Body Fat Depletion (Non Severe: Mild Depletion Weight Status: Underweight MAU TAM MD Feb 22, 2017 12:51
[2017-02-22 14:18] VITALS: BP 133/89
--- NOTE | 2017-02-22 16:43 | PDOC ---
PULMONARY PROGRESS NOTES Subjective MORE AWAKE PULLED OUT 02 CANULA Vitals Vital Signs Date Time Temp Pulse Resp B/P (MAP) Pulse Ox O2 Delivery O2 Flow Rate FiO2 02/22/17 14:18 98.1 69 44 133/89 (104) 92 Nasal Cannula 1.5 98.1 Lungs: Crackles Cardiovascular: S1, S2 Abdomen: Soft Extremities: No Edema Skin: Warm Labs Laboratory Tests Test 02/21/17 05:00 02/22/17 04:30 Hemoglobin 10.6 g/dL (12.0-15.5) Sodium Level 160 mmol/L (136-145) 153 mmol/L (136-145) Potassium Level 4.1 mmol/L (3.5-5.1) 4.2 mmol/L (3.5-5.1) Chloride Level 124 mmol/L (98-107) 118 mmol/L (98-107) Carbon Dioxide Level 28 mmol/L (21-32) 25 mmol/L (21-32) Anion Gap 8 (6-14) 10 (6-14) Blood Urea Nitrogen 37 mg/dL (7-20) 30 mg/dL (7-20) Creatinine 1.0 mg/dL (0.6-1.0) 0.8 mg/dL (0.6-1.0) Estimated GFR (Cockcroft-Gault) 53.0 68.5 Glucose Level 105 mg/dL (70-99) 96 mg/dL (70-99) Calcium Level 8.9 mg/dL (8.5-10.1) 8.3 mg/dL (8.5-10.1) Phosphorus Level 2.5 mg/dL (2.6-4.7) 2.7 mg/dL (2.6-4.7) Magnesium Level 2.4 mg/dL (1.8-2.4) 2.3 mg/dL (1.8-2.4) Creatine Kinase 292 U/L (26-192) 137 U/L (26-192) Albumin 1.8 g/dL (3.4-5.0) 1.7 g/dL (3.4-5.0) Laboratory Tests Test 02/22/17 04:30 Sodium Level 153 mmol/L (136-145) Potassium Level 4.2 mmol/L (3.5-5.1) Chloride Level 118 mmol/L (98-107) Carbon Dioxide Level 25 mmol/L (21-32) Anion Gap 10 (6-14) Blood Urea Nitrogen 30 mg/dL (7-20) Creatinine 0.8 mg/dL (0.6-1.0) Estimated GFR (Cockcroft-Gault) 68.5 Glucose Level 96 mg/dL (70-99) Calcium Level 8.3 mg/dL (8.5-10.1) Phosphorus Level 2.7 mg/dL (2.6-4.7) Magnesium Level 2.3 mg/dL (1.8-2.4) Creatine Kinase 137 U/L (26-192) Albumin 1.7 g/dL (3.4-5.0) Medications Active Scripts Medications Dose Route/Sig Max Daily Dose Days Date Category Metoprolol Tartrate 25 Mg Tablet 12.5 Mg PO BID 02/20/17 Reported Risperdal (Risperidone) 0.5 Mg Tablet 0.5 Mg PO DAILY 02/20/17 Reported Miralax (Polyethylene Glycol 3350) 17 Gm Powd.pack 1 Pkt PO DAILY 02/20/17 Reported Vitamin D (Cholecalciferol (Vitamin D3)) 1,000 Unit Tablet 1,000 Unit PO DAILY 01/23/15 Reported Milk Of Magnesia (Magnesium Hydroxide) 400 Mg/5 Ml Oral.susp 400 Mg PO PRN PRN 01/23/15 Reported Artificial Tears (Polyvinyl Alcohol) 15 Ml Drops 2 Drop OP PRN Q4HRS PRN 01/23/15 Reported Acetaminophen 500 Mg Tablet 650 Mg PO PRN Q4HRS PRN 01/23/15 Reported Multivitamins (Multivitamin) 1 Each Tablet 1 Tab PO DAILY 01/23/15 Reported Risperidone 1 Mg Tablet 1 Tab PO HS 01/22/15 Reported Sinemet 25-100 Mg Tablet (Carbidopa/Levodopa) 1 Each Tablet 1 Tab PO TID 01/22/15 Reported Impression . Assessment/Plan PNEUMONIA MET/TOXIC ENCEPHALOPATHY FEVER/ LEUKOCYTOSIS HYPERNATREMIA DEMENTIA Plan . RESP STATUS COMPENSATED REPLACE 02 TUBING CONTINUE ANTIBX PER ID IF FLUIDS PER NEPHRO POOR PROGNOSIS SILVANO BEAN MD Feb 22, 2017 16:42
[2017-02-22 19:00] VITALS: BP 127/44
[2017-02-22] MEDS: CEFEPIME HCL 1 GM in IV DEXTROSE 5% 100 ML IV SCH (19:58)
[2017-02-22 23:00] VITALS: BP 139/53
[2017-02-23 03:00] VITALS: BP 126/46
--- NOTE | 2017-02-23 03:13 | ACF ---
Admission Forms Criteria PNEUMONIA, HOSPITAL-ACQUIRED AND ATELECTASIS Clinical Indications for Inpatient Care (Place 'X' for any and all applicable criteria): Ongoing inpatient care may be indicated for hospital-acquired atelectasis or pneumonia[N] with ANY ONE of the following(2)(5)(47)(48)(49): [ ]I. Mechanical ventilation [N] [ ]II. Temperature less than 35 degrees C (95 degrees F) or greater than 39.5 degrees C (103.1 degrees F) [X]III. Tachypnea (eg, respiratory rate greater than 30 breaths per minute) [ ]IV. Hemodynamic instability [ ]V. Respiratory distress [ ]. Significant hypoxemia as indicated by ANY ONE of the following: [ ]a) Previously normal respiratory status with ANY ONE of the following: [ ]i) SaO2 less than 90% or PO2 less than 60 mm Hg (8.0 kPa )) on room air [ ]ii) Oxygen required to keep SaO2 greater than 90% [ ]b) Chronic baseline hypoxemia with significant deterioration (eg, O2 saturation decrease more than 5%) [ ]c) Required supplemental oxygen performable only in acute inpatient setting [ ]VII. Significant hypoventilation as indicated by ANY ONE of the following: [ ]a) Previously normal with PCO2 greater than 42 mm Hg (5.6 kPa) and pH less than 7.35 [ ]b) Documented PCO2 increase greater than 5 mm Hg (0.7 kPa) from disease baseline [ ]VIII.Severe secretion production requiring frequent suctioning Extended stay beyond goal length of stay for primary condition may be needed until ALL of the following are present(28)(29): [ ]a) Microbiologic cause of infection identified and appropriate antibiotic treatment in place, or satisfactory clinical response to empiric antibiotic therapy [ ]b) Hemodynamic stability [ ]c) No requirement for supplemental oxygen performable only in acute inpatient setting [ ]d) Chest tube absent or chest catheter management regimen established for next level of care [ ]e) Suctioning, pulmonary toilet, or other therapy performable at a lower level of care [ ]f) Fever absent, improved, or manageable at lower level of care [ ]g) Medical comorbidities manageable at a lower level of care The original [facility] content created by [employer] has been revised. The portions of the content which have been revised are identified through the use of italic text or in bold, and [facility] has neither reviewed nor approved the modified material. All other unmodified content is copyright [facility] Please see references footnoted in the original [facility] edition 2016 Admission Criteria Met?: Yes JULIO DONATO Feb 23, 2017 03:13
[2017-02-23 05:07] LABS: MAGNESIUM 2.3 mg/dL (1.8-2.4); PHOSPHORUS 2.6 mg/dL (2.6-4.7)
[2017-02-23 05:12] LABS: ALBUMIN/GLOBULIN RATIO 0.4 (1.0-1.7); CALCIUM 8.3 mg/dL (8.5-10.1); CREATININE 0.8 mg/dL (0.6-1.0); GFR 68.5; TOTAL BILIRUBIN 0.3 mg/dL (0.2-1.0); TOTAL PROTEIN 6.9 g/dL (6.4-8.2)
[2017-02-23] MEDS: PANTOPRAZOLE 40 MG TABLET.DR. PO SCH (07:30)
[2017-02-23 07:50] VITALS: BP 125/48
[2017-02-23 08:33] LABS: BASO % 0 % (0-3); EOS % 1 % (0-3); HEMATOCRIT 35.8 % (36.0-47.0); HEMOGLOBIN 11.3 g/dL (12.0-15.5); LYMPH # 0.9 x10^3/uL (1.0-4.8); LYMPH % 9 % (24-48); MEAN CORPUSCULAR HEMOGLOBIN 28 pg (25-35); MEAN CORPUSCULAR HGB CONC 32 g/dL (31-37); MEAN CORPUSCULAR VOLUME 88 fL (79-100); MONO % 5 % (0-9); NEUT % 85 % (31-73); PLATELET COUNT 289 x10^3/uL (140-400); RED BLOOD COUNT 4.07 x10^6/uL (3.50-5.40); RED CELL DISTRIBUTION WIDTH 13.8 % (11.5-14.5); WHITE BLOOD COUNT 10.3 x10^3/uL (4.0-11.0)
--- NOTE | 2017-02-23 08:47 | PDOC ---
Infectious Disease Note Subjective Subjective States she is doing well. Very alert ROS ROS GEN: Denies fevers, chills, sweats HEENT: Denies blurred vision, sore throat CV: Denies chest pain RESP: Denies shortness of air, cough GI: Denies n/v/d NEURO: Denies confusion, dizziness MSK: Denies weakness, joint pain/swelling Vital Sign Vital Signs Vital Signs Date Time Temp Pulse Resp B/P (MAP) Pulse Ox O2 Delivery O2 Flow Rate FiO2 02/23/17 07:50 97.9 71 34 125/48 (73) 97 Nasal Cannula 1.5 97.9 Physical Exam PHYSICAL EXAM GENERAL: NAD, Alert HEENT: PERRL, OC/OP -clear NECK: Supple, no JVD, no LN LUNGS: Clear HEART: S1S2, no gallop, no murmur ABD: Soft, NT, no organomegaly, no rebound EXT: No edema, no cyanosis [employer]: Alert, oriented, no focal neurologic deficit SKIN: No rash IV: ok Labs Lab Laboratory Tests Test 02/23/17 02:50 White Blood Count 10.3 x10^3/uL (4.0-11.0) Red Blood Count 4.07 x10^6/uL (3.50-5.40) Hemoglobin 11.3 g/dL (12.0-15.5) Hematocrit 35.8 % (36.0-47.0) Mean Corpuscular Volume 88 fL (79-100) Mean Corpuscular Hemoglobin 28 pg (25-35) Mean Corpuscular Hemoglobin Concent 32 g/dL (31-37) Red Cell Distribution Width 13.8 % (11.5-14.5) Platelet Count 289 x10^3/uL (140-400) Neutrophils (%) (Auto) 85 % (31-73) Lymphocytes (%) (Auto) 9 % (24-48) Monocytes (%) (Auto) 5 % (0-9) Eosinophils (%) (Auto) 1 % (0-3) Basophils (%) (Auto) 0 % (0-3) Neutrophils # (Auto) 8.8 x10^3uL (1.8-7.7) Lymphocytes # (Auto) 0.9 x10^3/uL (1.0-4.8) Monocytes # (Auto) 0.5 x10^3/uL (0.0-1.1) Eosinophils # (Auto) 0.1 x10^3/uL (0.0-0.7) Basophils # (Auto) 0.0 x10^3/uL (0.0-0.2) Sodium Level 148 mmol/L (136-145) Potassium Level 4.0 mmol/L (3.5-5.1) Chloride Level 112 mmol/L (98-107) Carbon Dioxide Level 27 mmol/L (21-32) Anion Gap 9 (6-14) Blood Urea Nitrogen 27 mg/dL (7-20) Creatinine 0.8 mg/dL (0.6-1.0) Estimated GFR (Cockcroft-Gault) 68.5 BUN/Creatinine Ratio 34 (6-20) Glucose Level 87 mg/dL (70-99) Calcium Level 8.3 mg/dL (8.5-10.1) Phosphorus Level 2.6 mg/dL (2.6-4.7) Magnesium Level 2.3 mg/dL (1.8-2.4) Total Bilirubin 0.3 mg/dL (0.2-1.0) Aspartate Amino Transf (AST/SGOT) 29 U/L (15-37) Alanine Aminotransferase (ALT/SGPT) 19 U/L (14-59) Alkaline Phosphatase 117 U/L (46-116) Creatine Kinase 101 U/L (26-192) Total Protein 6.9 g/dL (6.4-8.2) Albumin 2.0 g/dL (3.4-5.0) Albumin/Globulin Ratio 0.4 (1.0-1.7) Objective Assessment Leukocytosis - better Fever - resolved Encephalopathy - better Dehydration + MRSA Hypernatremia Renal failure - better Dementia Plan Plan of Care Discont Cefepime Begin Augmentin supportive care check cultures/labs CARLOS LANDERSO MD Feb 23, 2017 08:46
--- NOTE | 2017-02-23 08:54 | PDOC ---
PROGRESS NOTES Chief Complaint Chief Complaint cc: fever Hypernatremia POSSIBLE Pneumonia vasmotor nephropathy fever metabolic encephalopathy weakness moderate malnutrition History of Present Illness History of Present Illness more alert today, better energy level per discussion with ID consult may be able to pass swallow eval today, needs a lot of PO meds, if unable to pass swallow, I would advocate for dobhoff with feeds parkinsons meds needed poor prognosis, No family available, She appears to be more nourished will continue ProcalAmine and encouraged oral intake. speech and swallow evaluation, d/w RN Continue antibiotics. may change to PO if able to take PO PT and OT Vitals Vitals Vital Signs Date Time Temp Pulse Resp B/P (MAP) Pulse Ox O2 Delivery O2 Flow Rate FiO2 02/23/17 07:50 97.9 71 34 125/48 (73) 97 Nasal Cannula 1.5 97.9 Physical Exam General: Alert, Other (THIN BUILT, ) Heart: Regular rate, Normal S1, Normal S2, No murmurs, Gallops Lungs: Crackles Abdomen: Normal bowel sounds, Soft, No tenderness, No hepatosplenomegaly, No masses Extremities: No clubbing, No cyanosis, No edema, Normal pulses, No tenderness/ swelling Labs LABS Laboratory Tests Test 02/23/17 02:50 White Blood Count 10.3 x10^3/uL (4.0-11.0) Red Blood Count 4.07 x10^6/uL (3.50-5.40) Hemoglobin 11.3 g/dL (12.0-15.5) Hematocrit 35.8 % (36.0-47.0) Mean Corpuscular Volume 88 fL (79-100) Mean Corpuscular Hemoglobin 28 pg (25-35) Mean Corpuscular Hemoglobin Concent 32 g/dL (31-37) Red Cell Distribution Width 13.8 % (11.5-14.5) Platelet Count 289 x10^3/uL (140-400) Neutrophils (%) (Auto) 85 % (31-73) Lymphocytes (%) (Auto) 9 % (24-48) Monocytes (%) (Auto) 5 % (0-9) Eosinophils (%) (Auto) 1 % (0-3) Basophils (%) (Auto) 0 % (0-3) Neutrophils # (Auto) 8.8 x10^3uL (1.8-7.7) Lymphocytes # (Auto) 0.9 x10^3/uL (1.0-4.8) Monocytes # (Auto) 0.5 x10^3/uL (0.0-1.1) Eosinophils # (Auto) 0.1 x10^3/uL (0.0-0.7) Basophils # (Auto) 0.0 x10^3/uL (0.0-0.2) Sodium Level 148 mmol/L (136-145) Potassium Level 4.0 mmol/L (3.5-5.1) Chloride Level 112 mmol/L (98-107) Carbon Dioxide Level 27 mmol/L (21-32) Anion Gap 9 (6-14) Blood Urea Nitrogen 27 mg/dL (7-20) Creatinine 0.8 mg/dL (0.6-1.0) Estimated GFR (Cockcroft-Gault) 68.5 BUN/Creatinine Ratio 34 (6-20) Glucose Level 87 mg/dL (70-99) Calcium Level 8.3 mg/dL (8.5-10.1) Phosphorus Level 2.6 mg/dL (2.6-4.7) Magnesium Level 2.3 mg/dL (1.8-2.4) Total Bilirubin 0.3 mg/dL (0.2-1.0) Aspartate Amino Transf (AST/SGOT) 29 U/L (15-37) Alanine Aminotransferase (ALT/SGPT) 19 U/L (14-59) Alkaline Phosphatase 117 U/L (46-116) Creatine Kinase 101 U/L (26-192) Total Protein 6.9 g/dL (6.4-8.2) Albumin 2.0 g/dL (3.4-5.0) Albumin/Globulin Ratio 0.4 (1.0-1.7) Review of Systems Review of Systems no n,.v.d more alert Assessment and Plan Assessmemt and Plan cont current palliative care to follow DNR ordered prognosis for improvement is poor Problems: Comment Review of Relevant I have reviewed the following items giovanni (where applicable) has been applied. Labs Laboratory Tests Test 02/22/17 04:30 02/23/17 02:50 Sodium Level 153 mmol/L (136-145) 148 mmol/L (136-145) Potassium Level 4.2 mmol/L (3.5-5.1) 4.0 mmol/L (3.5-5.1) Chloride Level 118 mmol/L (98-107) 112 mmol/L (98-107) Carbon Dioxide Level 25 mmol/L (21-32) 27 mmol/L (21-32) Anion Gap 10 (6-14) 9 (6-14) Blood Urea Nitrogen 30 mg/dL (7-20) 27 mg/dL (7-20) Creatinine 0.8 mg/dL (0.6-1.0) 0.8 mg/dL (0.6-1.0) Estimated GFR (Cockcroft-Gault) 68.5 68.5 Glucose Level 96 mg/dL (70-99) 87 mg/dL (70-99) Calcium Level 8.3 mg/dL (8.5-10.1) 8.3 mg/dL (8.5-10.1) Phosphorus Level 2.7 mg/dL (2.6-4.7) 2.6 mg/dL (2.6-4.7) Magnesium Level 2.3 mg/dL (1.8-2.4) 2.3 mg/dL (1.8-2.4) Creatine Kinase 137 U/L (26-192) 101 U/L (26-192) Albumin 1.7 g/dL (3.4-5.0) 2.0 g/dL (3.4-5.0) White Blood Count 10.3 x10^3/uL (4.0-11.0) Red Blood Count 4.07 x10^6/uL (3.50-5.40) Hemoglobin 11.3 g/dL (12.0-15.5) Hematocrit 35.8 % (36.0-47.0) Mean Corpuscular Volume 88 fL (79-100) Mean Corpuscular Hemoglobin 28 pg (25-35) Mean Corpuscular Hemoglobin Concent 32 g/dL (31-37) Red Cell Distribution Width 13.8 % (11.5-14.5) Platelet Count 289 x10^3/uL (140-400) Neutrophils (%) (Auto) 85 % (31-73) Lymphocytes (%) (Auto) 9 % (24-48) Monocytes (%) (Auto) 5 % (0-9) Eosinophils (%) (Auto) 1 % (0-3) Basophils (%) (Auto) 0 % (0-3) Neutrophils # (Auto) 8.8 x10^3uL (1.8-7.7) Lymphocytes # (Auto) 0.9 x10^3/uL (1.0-4.8) Monocytes # (Auto) 0.5 x10^3/uL (0.0-1.1) Eosinophils # (Auto) 0.1 x10^3/uL (0.0-0.7) Basophils # (Auto) 0.0 x10^3/uL (0.0-0.2) BUN/Creatinine Ratio 34 (6-20) Total Bilirubin 0.3 mg/dL (0.2-1.0) Aspartate Amino Transf (AST/SGOT) 29 U/L (15-37) Alanine Aminotransferase (ALT/SGPT) 19 U/L (14-59) Alkaline Phosphatase 117 U/L (46-116) Total Protein 6.9 g/dL (6.4-8.2) Albumin/Globulin Ratio 0.4 (1.0-1.7) Laboratory Tests Test 02/23/17 02:50 White Blood Count 10.3 x10^3/uL (4.0-11.0) Red Blood Count 4.07 x10^6/uL (3.50-5.40) Hemoglobin 11.3 g/dL (12.0-15.5) Hematocrit 35.8 % (36.0-47.0) Mean Corpuscular Volume 88 fL (79-100) Mean Corpuscular Hemoglobin 28 pg (25-35) Mean Corpuscular Hemoglobin Concent 32 g/dL (31-37) Red Cell Distribution Width 13.8 % (11.5-14.5) Platelet Count 289 x10^3/uL (140-400) Neutrophils (%) (Auto) 85 % (31-73) Lymphocytes (%) (Auto) 9 % (24-48) Monocytes (%) (Auto) 5 % (0-9) Eosinophils (%) (Auto) 1 % (0-3) Basophils (%) (Auto) 0 % (0-3) Neutrophils # (Auto) 8.8 x10^3uL (1.8-7.7) Lymphocytes # (Auto) 0.9 x10^3/uL (1.0-4.8) Monocytes # (Auto) 0.5 x10^3/uL (0.0-1.1) Eosinophils # (Auto) 0.1 x10^3/uL (0.0-0.7) Basophils # (Auto) 0.0 x10^3/uL (0.0-0.2) Sodium Level 148 mmol/L (136-145) Potassium Level 4.0 mmol/L (3.5-5.1) Chloride Level 112 mmol/L (98-107) Carbon Dioxide Level 27 mmol/L (21-32) Anion Gap 9 (6-14) Blood Urea Nitrogen 27 mg/dL (7-20) Creatinine 0.8 mg/dL (0.6-1.0) Estimated GFR (Cockcroft-Gault) 68.5 BUN/Creatinine Ratio 34 (6-20) Glucose Level 87 mg/dL (70-99) Calcium Level 8.3 mg/dL (8.5-10.1) Phosphorus Level 2.6 mg/dL (2.6-4.7) Magnesium Level 2.3 mg/dL (1.8-2.4) Total Bilirubin 0.3 mg/dL (0.2-1.0) Aspartate Amino Transf (AST/SGOT) 29 U/L (15-37) Alanine Aminotransferase (ALT/SGPT) 19 U/L (14-59) Alkaline Phosphatase 117 U/L (46-116) Creatine Kinase 101 U/L (26-192) Total Protein 6.9 g/dL (6.4-8.2) Albumin 2.0 g/dL (3.4-5.0) Albumin/Globulin Ratio 0.4 (1.0-1.7) Medications Current Medications Sodium Chloride 1,000 ml @ 100 mls/hr Q10H IV Last administered on 02/19/17t 19 :20; Start 02/19/17 at 19:00; Stop 02/20/17 at 04:59; Status DC Cefepime HCl 1 gm/ Sodium Chloride 50 ml @ 100 mls/hr Q8HRS IV ; Start 02/19/17 at 22:00; Status UNV Vancomycin HCl (Vanco Per Pharmacy) 1 each PRN DAILY PRN MC SEE COMMENTS Last administered on 02/20/17 01:14; Start 02/19/17 at 20:00; Stop 02/20/17 at 09:10; Status DC Acetaminophen (Acetaminophen Supp) 650 mg 1X ONCE VA Last administered on 20:20; Start 02/19/17 at 20:00; Stop 02/19/17 at 20:07; Status DC Vancomycin HCl 1.25 gm/Dextrose 250 ml @ 166.667 mls/hr 1X ONCE IV Last administered on 02/19/17 21:37; Start 02/19/17 at 20:15; Stop 02/19/17 at 21:44; Status DC Cefepime HCl 1 gm/ Dextrose 100 ml @ 200 mls/hr 1X ONCE IV Last administered on 02/19/17 20:20; Start 02/19/17 at 20:15; Stop 02/19/17 at 20:44; Status DC Sodium Chloride 1,000 ml @ 150 mls/hr 1X ONCE IV Last administered on 22:09; Start 02/19/17 at 20:15; Stop 02/20/17 at 02:54; Status DC Clindamycin Phosphate 480 ml @ 960 mls/hr 1X ONCE IV ; Start 02/19/17 at 20:30 ; Stop 02/19/17 at 20:59; Status UNV Clindamycin Phosphate 50 ml @ 100 mls/hr 1X ONCE IV Last administered on 20:30; Start 02/19/17 at 20:30; Stop 02/20/17 at 09:10; Status DC Acetaminophen (Tylenol) 650 mg PRN Q4HRS PRN PO MILD PAIN; Start 02/19/17 at 22: 15 Carbidopa/Levodopa (Sinemet 25/100) 1 tab TID PO ; Start 02/20/17 at 09:00 Vitamin D (Vitamin D3) 1,000 unit DAILY PO ; Start 02/20/17 at 09:00 Magnesium Hydroxide (Milk Of Magnesia) 400 mg PRN DAILY PRN PO CONSTIPATION; Start 02/19/17 at 22:15 Risperidone (RisperDAL) 1 mg BID PO ; Start 02/20/17 at 09:00 Cetirizine HCl (ZyrTEC) 10 mg DAILY PO ; Start 02/20/17 at 09:00 Multivitamins (Thera M Plus) 1 tab DAILY PO ; Start 02/20/17 at 09:00 Pantoprazole Sodium (Protonix) 40 mg DAILYAC PO ; Start 02/20/17 at 07:30 Metoprolol Tartrate (Lopressor) 12.5 mg BID PO ; Start 02/20/17 at 09:00 Vancomycin HCl 750 mg/Dextrose 250 ml @ 250 mls/hr Q48H IV ; Start 02/21/17 at 21:00; Stop 02/21/17 at 21:00; Status DC Vancomycin HCl 1 each 1X ONCE MC ; Start 02/23/17 at 20:30; Stop 02/23/17 at 20 :30; Status DC Cefepime HCl 1 gm/ Dextrose 100 ml @ 100 mls/hr Q24H IV Last administered on 19:58; Start 02/20/17 at 20:00 Sodium Chloride 1,000 ml @ 100 mls/hr Q10H IV ; Start 02/20/17 at 06:30; Stop at 16:36; Status DC Amino Acids/ Glycerin/ Electrolytes 1,000 ml @ 80 mls/hr [id number] IV Last administered on 02/22/17 19:59; Start 02/20/17 at 09:00 Magnesium Sulfate/ Dextrose 50 ml @ 25 mls/hr PRN DAILY PRN IV for Mag < 1.7 on am labs; Start 02/20/17 at 09:00 Potassium Phosphate 13.6 mmol/Sodium Chloride 254.5333 ml @ 127.... PRN Q2HRS PRN IV for Phos < WNL; Start 02/20/17 at 09:00 Sodium Chloride 1,000 ml @ 75 mls/hr [id number] IV Last administered on 02/22/17 00:31; Start 02/21/17 at 22:30; Stop 02/22/17 at 12:06; Status DC Active Scripts Active Reported Metoprolol Tartrate 25 Mg Tablet 12.5 Mg PO BID Risperdal (Risperidone) 0.5 Mg Tablet 0.5 Mg PO DAILY Miralax (Polyethylene Glycol 3350) 17 Gm Powd.pack 1 Pkt PO DAILY Vitamin D (Cholecalciferol (Vitamin D3)) 1,000 Unit Tablet 1,000 Unit PO DAILY Milk Of Magnesia (Magnesium Hydroxide) 400 Mg/5 Ml Oral.susp 400 Mg PO PRN PRN Artificial Tears (Polyvinyl Alcohol) 15 Ml Drops 2 Drop OP PRN Q4HRS PRN Acetaminophen 500 Mg Tablet 650 Mg PO PRN Q4HRS PRN Multivitamins (Multivitamin) 1 Each Tablet 1 Tab PO DAILY Risperidone 1 Mg Tablet 1 Tab PO HS Sinemet 25-100 Mg Tablet (Carbidopa/Levodopa) 1 Each Tablet 1 Tab PO TID Vitals/I & O Vital Sign - Last 24 Hours 02/22/17 02/22/17 02/22/17 02/22/17 10:56 14:18 19:00 20:21 Temp 97.9 98.1 98.5 97.9 98.1 98.5 Pulse 71 69 81 Resp 44 44 36 B/P (MAP) 123/50 (74) 133/89 (104) 127/44 (71) Pulse Ox 92 92 94 O2 Delivery Nasal Cannula Nasal Cannula Nasal Cannula Nasal Cannula O2 Flow Rate 1.5 1.5 1.5 1.5 02/22/17 02/23/17 02/23/17 23:00 03:00 07:50 Temp 98.2 98.6 97.9 98.2 98.6 97.9 Pulse 73 73 71 Resp 32 34 34 B/P (MAP) 139/53 (81) 126/46 (72) 125/48 (73) Pulse Ox 94 93 97 O2 Delivery Nasal Cannula Nasal Cannula Nasal Cannula O2 Flow Rate 1.5 1.5 1.5 Intake and Output 02/22/17 02/22/17 02/23/17 15:00 23:00 07:00 Intake Total 100 ml 350 ml Balance 100 ml 350 ml Nutrition Consultation Dietary Evaluation: Comments: continue ppn for short term nutrition at this time monitor care plan Expected Outcomes/Goals: unknown at this time Malnutrition Findings: Body Fat Depletion (Non Severe: Mild Depletion Weight Status: Underweight THELMA KILGORE MD Feb 23, 2017 08:54
[2017-02-23] MEDS: METOPROLOL TART IMMED RELEASE 25 MG TABLET. PO SCH ×2 (09:00→20:59)
[2017-02-23] MEDS: risperiDONE 1 MG TABLET. PO SCH ×2 (09:00→20:59)
[2017-02-23] MEDS ORDERED: AMOXICILLIN/K CLAV 500/125MG TABLET. PO SCH (09:00)
[2017-02-23] MEDS: CARBIDOPA/LEVODOPA 25/100MG TABLET PO SCH ×3 (09:00→20:59)
[2017-02-23] MEDS ORDERED: cefTRIAXone IM 250 MG VIAL IM ONE (09:00)
[2017-02-23] MEDS: CHOLECALCIFEROL (VITAMIN D3) 1,000 UNIT TABLET PO SCH (09:00)
[2017-02-23] MEDS: CETIRIZINE HCL 10 MG TABLET. PO SCH (09:00)
[2017-02-23] MEDS: MULTIVITAMIN with MINERAL TABLET. PO SCH (09:00)
[2017-02-23 10:17] VITALS: BP 117/73
--- NOTE | 2017-02-23 12:16 | PDOC ---
Renal-Progress Notes History of Present Illness Hx of present illness NONE, CONFUSED Vitals Vitals Vital Signs Date Time Temp Pulse Resp B/P (MAP) Pulse Ox O2 Delivery O2 Flow Rate FiO2 02/23/17 10:17 97.5 55 40 117/73 (88) 92 Room Air 97.5 02/23/17 08:00 2.0 Weight Weight [ ] I.O. Intake and Output Intake and Output 02/23/17 07:00 Intake Total 450 ml Balance 450 ml Intake Oral 0 ml IV Total 450 ml # Voids 8 # Bowel Movements 1 Labs Labs Laboratory Tests Test 02/23/17 02:50 White Blood Count 10.3 x10^3/uL (4.0-11.0) Red Blood Count 4.07 x10^6/uL (3.50-5.40) Hemoglobin 11.3 g/dL (12.0-15.5) Hematocrit 35.8 % (36.0-47.0) Mean Corpuscular Volume 88 fL (79-100) Mean Corpuscular Hemoglobin 28 pg (25-35) Mean Corpuscular Hemoglobin Concent 32 g/dL (31-37) Red Cell Distribution Width 13.8 % (11.5-14.5) Platelet Count 289 x10^3/uL (140-400) Neutrophils (%) (Auto) 85 % (31-73) Lymphocytes (%) (Auto) 9 % (24-48) Monocytes (%) (Auto) 5 % (0-9) Eosinophils (%) (Auto) 1 % (0-3) Basophils (%) (Auto) 0 % (0-3) Neutrophils # (Auto) 8.8 x10^3uL (1.8-7.7) Lymphocytes # (Auto) 0.9 x10^3/uL (1.0-4.8) Monocytes # (Auto) 0.5 x10^3/uL (0.0-1.1) Eosinophils # (Auto) 0.1 x10^3/uL (0.0-0.7) Basophils # (Auto) 0.0 x10^3/uL (0.0-0.2) Sodium Level 148 mmol/L (136-145) Potassium Level 4.0 mmol/L (3.5-5.1) Chloride Level 112 mmol/L (98-107) Carbon Dioxide Level 27 mmol/L (21-32) Anion Gap 9 (6-14) Blood Urea Nitrogen 27 mg/dL (7-20) Creatinine 0.8 mg/dL (0.6-1.0) Estimated GFR (Cockcroft-Gault) 68.5 BUN/Creatinine Ratio 34 (6-20) Glucose Level 87 mg/dL (70-99) Calcium Level 8.3 mg/dL (8.5-10.1) Phosphorus Level 2.6 mg/dL (2.6-4.7) Magnesium Level 2.3 mg/dL (1.8-2.4) Total Bilirubin 0.3 mg/dL (0.2-1.0) Aspartate Amino Transf (AST/SGOT) 29 U/L (15-37) Alanine Aminotransferase (ALT/SGPT) 19 U/L (14-59) Alkaline Phosphatase 117 U/L (46-116) Creatine Kinase 101 U/L (26-192) Total Protein 6.9 g/dL (6.4-8.2) Albumin 2.0 g/dL (3.4-5.0) Albumin/Globulin Ratio 0.4 (1.0-1.7) Review of Systems Constitutional: yes: no symptom reported Physical Exam General Appearance: no apparent distress Skin: warm Respiratory: decreased breath sounds Heart: S1S2 Abdomen: soft, bowel sounds present Genitourinary: bladder flat Neurology: alert Assessment Assessment IMP CHANDU-ESSENTIALLY RESOLVED HYPERNATREMIA-BETTER WITH NA 167 TO 148 FEVER-?PNA MET ENCEPHALOPATHY DEMENTIA PLAN CONT WITH ANTIBIOTICS CONT WITH PPN LABS IN AM, MATISA METZGER MD Feb 23, 2017 12:15
--- NOTE | 2017-02-23 12:23 | PDOC ---
PULMONARY PROGRESS NOTES Subjective does not follow commands Vitals Vital Signs Date Time Temp Pulse Resp B/P (MAP) Pulse Ox O2 Delivery O2 Flow Rate FiO2 02/23/17 10:17 97.5 55 40 117/73 (88) 92 Room Air 97.5 02/23/17 08:00 2.0 General: No acute distress Lungs: Clear Cardiovascular: S1, S2 Abdomen: Soft Extremities: No Edema Skin: Warm Labs Laboratory Tests Test 02/22/17 04:30 02/23/17 02:50 Sodium Level 153 mmol/L (136-145) 148 mmol/L (136-145) Potassium Level 4.2 mmol/L (3.5-5.1) 4.0 mmol/L (3.5-5.1) Chloride Level 118 mmol/L (98-107) 112 mmol/L (98-107) Carbon Dioxide Level 25 mmol/L (21-32) 27 mmol/L (21-32) Anion Gap 10 (6-14) 9 (6-14) Blood Urea Nitrogen 30 mg/dL (7-20) 27 mg/dL (7-20) Creatinine 0.8 mg/dL (0.6-1.0) 0.8 mg/dL (0.6-1.0) Estimated GFR (Cockcroft-Gault) 68.5 68.5 Glucose Level 96 mg/dL (70-99) 87 mg/dL (70-99) Calcium Level 8.3 mg/dL (8.5-10.1) 8.3 mg/dL (8.5-10.1) Phosphorus Level 2.7 mg/dL (2.6-4.7) 2.6 mg/dL (2.6-4.7) Magnesium Level 2.3 mg/dL (1.8-2.4) 2.3 mg/dL (1.8-2.4) Creatine Kinase 137 U/L (26-192) 101 U/L (26-192) Albumin 1.7 g/dL (3.4-5.0) 2.0 g/dL (3.4-5.0) White Blood Count 10.3 x10^3/uL (4.0-11.0) Red Blood Count 4.07 x10^6/uL (3.50-5.40) Hemoglobin 11.3 g/dL (12.0-15.5) Hematocrit 35.8 % (36.0-47.0) Mean Corpuscular Volume 88 fL (79-100) Mean Corpuscular Hemoglobin 28 pg (25-35) Mean Corpuscular Hemoglobin Concent 32 g/dL (31-37) Red Cell Distribution Width 13.8 % (11.5-14.5) Platelet Count 289 x10^3/uL (140-400) Neutrophils (%) (Auto) 85 % (31-73) Lymphocytes (%) (Auto) 9 % (24-48) Monocytes (%) (Auto) 5 % (0-9) Eosinophils (%) (Auto) 1 % (0-3) Basophils (%) (Auto) 0 % (0-3) Neutrophils # (Auto) 8.8 x10^3uL (1.8-7.7) Lymphocytes # (Auto) 0.9 x10^3/uL (1.0-4.8) Monocytes # (Auto) 0.5 x10^3/uL (0.0-1.1) Eosinophils # (Auto) 0.1 x10^3/uL (0.0-0.7) Basophils # (Auto) 0.0 x10^3/uL (0.0-0.2) BUN/Creatinine Ratio 34 (6-20) Total Bilirubin 0.3 mg/dL (0.2-1.0) Aspartate Amino Transf (AST/SGOT) 29 U/L (15-37) Alanine Aminotransferase (ALT/SGPT) 19 U/L (14-59) Alkaline Phosphatase 117 U/L (46-116) Total Protein 6.9 g/dL (6.4-8.2) Albumin/Globulin Ratio 0.4 (1.0-1.7) Laboratory Tests Test 02/23/17 02:50 White Blood Count 10.3 x10^3/uL (4.0-11.0) Red Blood Count 4.07 x10^6/uL (3.50-5.40) Hemoglobin 11.3 g/dL (12.0-15.5) Hematocrit 35.8 % (36.0-47.0) Mean Corpuscular Volume 88 fL (79-100) Mean Corpuscular Hemoglobin 28 pg (25-35) Mean Corpuscular Hemoglobin Concent 32 g/dL (31-37) Red Cell Distribution Width 13.8 % (11.5-14.5) Platelet Count 289 x10^3/uL (140-400) Neutrophils (%) (Auto) 85 % (31-73) Lymphocytes (%) (Auto) 9 % (24-48) Monocytes (%) (Auto) 5 % (0-9) Eosinophils (%) (Auto) 1 % (0-3) Basophils (%) (Auto) 0 % (0-3) Neutrophils # (Auto) 8.8 x10^3uL (1.8-7.7) Lymphocytes # (Auto) 0.9 x10^3/uL (1.0-4.8) Monocytes # (Auto) 0.5 x10^3/uL (0.0-1.1) Eosinophils # (Auto) 0.1 x10^3/uL (0.0-0.7) Basophils # (Auto) 0.0 x10^3/uL (0.0-0.2) Sodium Level 148 mmol/L (136-145) Potassium Level 4.0 mmol/L (3.5-5.1) Chloride Level 112 mmol/L (98-107) Carbon Dioxide Level 27 mmol/L (21-32) Anion Gap 9 (6-14) Blood Urea Nitrogen 27 mg/dL (7-20) Creatinine 0.8 mg/dL (0.6-1.0) Estimated GFR (Cockcroft-Gault) 68.5 BUN/Creatinine Ratio 34 (6-20) Glucose Level 87 mg/dL (70-99) Calcium Level 8.3 mg/dL (8.5-10.1) Phosphorus Level 2.6 mg/dL (2.6-4.7) Magnesium Level 2.3 mg/dL (1.8-2.4) Total Bilirubin 0.3 mg/dL (0.2-1.0) Aspartate Amino Transf (AST/SGOT) 29 U/L (15-37) Alanine Aminotransferase (ALT/SGPT) 19 U/L (14-59) Alkaline Phosphatase 117 U/L (46-116) Creatine Kinase 101 U/L (26-192) Total Protein 6.9 g/dL (6.4-8.2) Albumin 2.0 g/dL (3.4-5.0) Albumin/Globulin Ratio 0.4 (1.0-1.7) Medications Active Scripts Medications Dose Route/Sig Max Daily Dose Days Date Category Metoprolol Tartrate 25 Mg Tablet 12.5 Mg PO BID 02/20/17 Reported Risperdal (Risperidone) 0.5 Mg Tablet 0.5 Mg PO DAILY 02/20/17 Reported Miralax (Polyethylene Glycol 3350) 17 Gm Powd.pack 1 Pkt PO DAILY 02/20/17 Reported Vitamin D (Cholecalciferol (Vitamin D3)) 1,000 Unit Tablet 1,000 Unit PO DAILY 01/23/15 Reported Milk Of Magnesia (Magnesium Hydroxide) 400 Mg/5 Ml Oral.susp 400 Mg PO PRN PRN 01/23/15 Reported Artificial Tears (Polyvinyl Alcohol) 15 Ml Drops 2 Drop OP PRN Q4HRS PRN 01/23/15 Reported Acetaminophen 500 Mg Tablet 650 Mg PO PRN Q4HRS PRN 01/23/15 Reported Multivitamins (Multivitamin) 1 Each Tablet 1 Tab PO DAILY 01/23/15 Reported Risperidone 1 Mg Tablet 1 Tab PO HS 01/22/15 Reported Sinemet 25-100 Mg Tablet (Carbidopa/Levodopa) 1 Each Tablet 1 Tab PO TID 01/22/15 Reported Impression . PNEUMONIA LLL MET/TOXIC ENCEPHALOPATHY FEVER/ LEUKOCYTOSIS HYPERNATREMIA DEMENTIA Plan . RESP STATUS COMPENSATED OXYGEN PRN CONTINUE ANTIBX PER ID NEPHRO RECOMMENDATIONS/ IMPROVING Na NPO POOR PROGNOSIS NOLBERTO BAHENA MD Feb 23, 2017 12:23
--- NOTE | 2017-02-23 13:18 | PDOC2 ---
PALLIATIVE CARE Palliative Care Note Palliative Care Patient alert. Confused at times. Denies pain, SOB. Not hungry. Diagnosis: pneumonia, dementia, encephalopathy; hypernatremia--improved. Spoke with patient's court appointed guardian. Requested copy of guardianship document. Confirmed DNR/DNI. States she has known patient for 5+ years. Patient has a brother Adan [place] who liven in [place]. Patient has never been or have any children. Patient has been confused since Marizol/guardian has known her. Marizol/guardian was called by nursing facility about feeding issues. Marizol understands she is limited on what decisions she can make as the guardian. Medical condition was reviewed with Marizol. She spoke with brother who is not in favor of feeding tube. Spoke with Dr. Rose. Plan is to try Dobhoff and give Parkinson medication to see if patient will improve. If no improvement, comfort care would be discussed.. Marizol would prefer Hospice if patient returns to care home with hospice. Plan: Feeding tube/Dobhoff DNR/DNI THOMAS RIVERO Feb 23, 2017 13:18
[2017-02-23 14:50] VITALS: BP 120/51
[2017-02-23] MEDS: AMINO AC 3%/ELECTROLYTE/GLYCER 1,000 ML IV SCH (17:10)
[2017-02-23 19:00] VITALS: BP 96/45
[2017-02-23 23:04] VITALS: BP 176/67
[2017-02-24] MEDS: AMINO AC 3%/ELECTROLYTE/GLYCER 1,000 ML IV SCH ×2 (00:30→13:00)
[2017-02-24 06:47] LABS: ALBUMIN 1.9 g/dL (3.4-5.0); CALCIUM 8.5 mg/dL (8.5-10.1); CREATININE 0.6 mg/dL (0.6-1.0); GFR 95.5; MAGNESIUM 1.9 mg/dL (1.8-2.4); PHOSPHORUS 2.9 mg/dL (2.6-4.7); POTASSIUM 4.8 mmol/L (3.5-5.1)
[2017-02-24 07:00] VITALS: BP 121/35
[2017-02-24 07:24] LABS: BASO % 0 % (0-3); EOS % 2 % (0-3); HEMATOCRIT 30.7 % (36.0-47.0); LYMPH # 0.8 x10^3/uL (1.0-4.8); LYMPH % 8 % (24-48); MEAN CORPUSCULAR HEMOGLOBIN 28 pg (25-35); MEAN CORPUSCULAR HGB CONC 33 g/dL (31-37); MEAN CORPUSCULAR VOLUME 86 fL (79-100); MONO % 5 % (0-9); NEUT % 84 % (31-73); PLATELET COUNT 240 x10^3/uL (140-400); RED BLOOD COUNT 3.58 x10^6/uL (3.50-5.40); RED CELL DISTRIBUTION WIDTH 13.7 % (11.5-14.5); WHITE BLOOD COUNT 9.9 x10^3/uL (4.0-11.0)
[2017-02-24] MEDS: PANTOPRAZOLE 40 MG TABLET.DR. PO SCH (07:30)
[2017-02-24] MEDS: risperiDONE 1 MG TABLET. PO SCH ×2 (08:34→20:59)
[2017-02-24] MEDS: METOPROLOL TART IMMED RELEASE 25 MG TABLET. PO SCH ×2 (08:34→20:59)
[2017-02-24] MEDS: CARBIDOPA/LEVODOPA 25/100MG TABLET PO SCH ×3 (08:34→20:59)
[2017-02-24] MEDS: MULTIVITAMIN with MINERAL TABLET. PO SCH (08:35)
[2017-02-24] MEDS: CETIRIZINE HCL 10 MG TABLET. PO SCH (08:35)
[2017-02-24] MEDS: CHOLECALCIFEROL (VITAMIN D3) 1,000 UNIT TABLET PO SCH (08:35)
--- NOTE | 2017-02-24 09:17 | PDOC ---
Infectious Disease Note Subjective Subjective States she is doing well. Very alert. No pain or cold. Wants her feet covered when asked ROS ROS GEN: Denies fevers, chills, sweats HEENT: Denies blurred vision, sore throat CV: Denies chest pain RESP: Denies shortness of air, cough GI: Denies n/v/d NEURO: Denies confusion, dizziness MSK: Denies weakness, joint pain/swelling Vital Sign Vital Signs Vital Signs Date Time Temp Pulse Resp B/P (MAP) Pulse Ox O2 Delivery O2 Flow Rate FiO2 02/24/17 07:57 Nasal Cannula 2.0 02/24/17 07:00 97.9 70 16 121/35 (63) 93 97.9 Physical Exam PHYSICAL EXAM GENERAL: NAD, Alert HEENT: PERRL, OC/OP -dry NECK: Supple, no JVD, no LN LUNGS: Clear HEART: S1S2, no gallop, no murmur ABD: Soft, NT, no organomegaly, no rebound EXT: No edema, no cyanosis PRODUCTION ESTIMATOR: Alert, oriented to name, no focal neurologic deficit SKIN: No rash IV: ok Labs Lab Laboratory Tests Test 02/24/17 05:50 02/24/17 07:20 Sodium Level 142 mmol/L (136-145) Potassium Level 4.8 mmol/L (3.5-5.1) Chloride Level 108 mmol/L (98-107) Carbon Dioxide Level 25 mmol/L (21-32) Anion Gap 9 (6-14) Blood Urea Nitrogen 25 mg/dL (7-20) Creatinine 0.6 mg/dL (0.6-1.0) Estimated GFR (Cockcroft-Gault) 95.5 Glucose Level 93 mg/dL (70-99) Calcium Level 8.5 mg/dL (8.5-10.1) Phosphorus Level 2.9 mg/dL (2.6-4.7) Magnesium Level 1.9 mg/dL (1.8-2.4) Creatine Kinase 81 U/L (26-192) Albumin 1.9 g/dL (3.4-5.0) White Blood Count 9.9 x10^3/uL (4.0-11.0) Red Blood Count 3.58 x10^6/uL (3.50-5.40) Hemoglobin 10.0 g/dL (12.0-15.5) Hematocrit 30.7 % (36.0-47.0) Mean Corpuscular Volume 86 fL (79-100) Mean Corpuscular Hemoglobin 28 pg (25-35) Mean Corpuscular Hemoglobin Concent 33 g/dL (31-37) Red Cell Distribution Width 13.7 % (11.5-14.5) Platelet Count 240 x10^3/uL (140-400) Neutrophils (%) (Auto) 84 % (31-73) Lymphocytes (%) (Auto) 8 % (24-48) Monocytes (%) (Auto) 5 % (0-9) Eosinophils (%) (Auto) 2 % (0-3) Basophils (%) (Auto) 0 % (0-3) Neutrophils # (Auto) 8.4 x10^3uL (1.8-7.7) Lymphocytes # (Auto) 0.8 x10^3/uL (1.0-4.8) Monocytes # (Auto) 0.5 x10^3/uL (0.0-1.1) Eosinophils # (Auto) 0.2 x10^3/uL (0.0-0.7) Basophils # (Auto) 0.0 x10^3/uL (0.0-0.2) Objective Assessment Leukocytosis - better Fever - resolved Encephalopathy - better Dehydration + MRSA Hypernatremia Renal failure - better Dementia Plan Plan of Care Awaiting [facility] placement. Dosed with Im Rocephin 02/23 has received 4 days of Abx. Will hold further abx supportive care F/u labs CARLOS LANDEROS MD Feb 24, 2017 09:17
--- NOTE | 2017-02-24 10:30 | PDOC2 ---
PALLIATIVE CARE Palliative Care Note Palliative Care Patient more alert today. Plan to place [facility] feeding tube today. If no improvement in swallow/ weakness , will to discuss "Best Interest for Patient" and more discussion with guardian/[facility]. Patient will return to long-term when discharged. THOMAS RIVERO Feb 24, 2017 10:30
[2017-02-24 10:59] VITALS: BP 106/52
--- NOTE | 2017-02-24 11:35 | PDOC ---
Renal-Progress Notes Subjective Notes Notes NONE History of Present Illness Hx of present illness STABLE Vitals Vitals Vital Signs Date Time Temp Pulse Resp B/P (MAP) Pulse Ox O2 Delivery O2 Flow Rate FiO2 02/24/17 10:59 98.6 76 16 106/52 (70) 93 Nasal Cannula 1.5 98.6 Weight Weight [ ] I.O. Intake and Output Intake and Output 02/24/17 07:00 Intake Total 600 ml Balance 600 ml Intake Oral 0 ml Other 600 ml # Voids 8 # Bowel Movements 2 Labs Labs Laboratory Tests Test 02/24/17 05:50 02/24/17 07:20 Sodium Level 142 mmol/L (136-145) Potassium Level 4.8 mmol/L (3.5-5.1) Chloride Level 108 mmol/L (98-107) Carbon Dioxide Level 25 mmol/L (21-32) Anion Gap 9 (6-14) Blood Urea Nitrogen 25 mg/dL (7-20) Creatinine 0.6 mg/dL (0.6-1.0) Estimated GFR (Cockcroft-Gault) 95.5 Glucose Level 93 mg/dL (70-99) Calcium Level 8.5 mg/dL (8.5-10.1) Phosphorus Level 2.9 mg/dL (2.6-4.7) Magnesium Level 1.9 mg/dL (1.8-2.4) Creatine Kinase 81 U/L (26-192) Albumin 1.9 g/dL (3.4-5.0) White Blood Count 9.9 x10^3/uL (4.0-11.0) Red Blood Count 3.58 x10^6/uL (3.50-5.40) Hemoglobin 10.0 g/dL (12.0-15.5) Hematocrit 30.7 % (36.0-47.0) Mean Corpuscular Volume 86 fL (79-100) Mean Corpuscular Hemoglobin 28 pg (25-35) Mean Corpuscular Hemoglobin Concent 33 g/dL (31-37) Red Cell Distribution Width 13.7 % (11.5-14.5) Platelet Count 240 x10^3/uL (140-400) Neutrophils (%) (Auto) 84 % (31-73) Lymphocytes (%) (Auto) 8 % (24-48) Monocytes (%) (Auto) 5 % (0-9) Eosinophils (%) (Auto) 2 % (0-3) Basophils (%) (Auto) 0 % (0-3) Neutrophils # (Auto) 8.4 x10^3uL (1.8-7.7) Lymphocytes # (Auto) 0.8 x10^3/uL (1.0-4.8) Monocytes # (Auto) 0.5 x10^3/uL (0.0-1.1) Eosinophils # (Auto) 0.2 x10^3/uL (0.0-0.7) Basophils # (Auto) 0.0 x10^3/uL (0.0-0.2) Review of Systems Constitutional: yes: no symptom reported Physical Exam General Appearance: no apparent distress Skin: warm Respiratory: decreased breath sounds Heart: S1S2 Abdomen: soft, bowel sounds present Genitourinary: bladder flat Neurology: alert Assessment Assessment IMP CHANDU - RESOLVED HYPERNATREMIA-BETTER WITH NA 167 TO 146 FEVER-?PNA MET ENCEPHALOPATHY DEMENTIA PLAN CONT WITH ANTIBIOTICS CONT WITH PPN LABS IN MATIAS BETANCOURT PENDING MATIAS METZGER MD Feb 24, 2017 11:35
--- NOTE | 2017-02-24 11:53 | PDOC ---
PULMONARY PROGRESS NOTES Subjective does not follow commands but more awake Vitals Vital Signs Date Time Temp Pulse Resp B/P (MAP) Pulse Ox O2 Delivery O2 Flow Rate FiO2 02/24/17 10:59 98.6 76 16 106/52 (70) 93 Nasal Cannula 1.5 98.6 General: No acute distress Lungs: Clear Cardiovascular: S1, S2 Abdomen: Soft Extremities: No Edema Skin: Warm Labs Laboratory Tests Test 02/23/17 02:50 02/24/17 05:50 02/24/17 07:20 White Blood Count 10.3 x10^3/uL (4.0-11.0) 9.9 x10^3/uL (4.0-11.0) Red Blood Count 4.07 x10^6/uL (3.50-5.40) 3.58 x10^6/uL (3.50-5.40) Hemoglobin 11.3 g/dL (12.0-15.5) 10.0 g/dL (12.0-15.5) Hematocrit 35.8 % (36.0-47.0) 30.7 % (36.0-47.0) Mean Corpuscular Volume 88 fL (79-100) 86 fL (79-100) Mean Corpuscular Hemoglobin 28 pg (25-35) 28 pg (25-35) Mean Corpuscular Hemoglobin Concent 32 g/dL (31-37) 33 g/dL (31-37) Red Cell Distribution Width 13.8 % (11.5-14.5) 13.7 % (11.5-14.5) Platelet Count 289 x10^3/uL (140-400) 240 x10^3/uL (140-400) Neutrophils (%) (Auto) 85 % (31-73) 84 % (31-73) Lymphocytes (%) (Auto) 9 % (24-48) 8 % (24-48) Monocytes (%) (Auto) 5 % (0-9) 5 % (0-9) Eosinophils (%) (Auto) 1 % (0-3) 2 % (0-3) Basophils (%) (Auto) 0 % (0-3) 0 % (0-3) Neutrophils # (Auto) 8.8 x10^3uL (1.8-7.7) 8.4 x10^3uL (1.8-7.7) Lymphocytes # (Auto) 0.9 x10^3/uL (1.0-4.8) 0.8 x10^3/uL (1.0-4.8) Monocytes # (Auto) 0.5 x10^3/uL (0.0-1.1) 0.5 x10^3/uL (0.0-1.1) Eosinophils # (Auto) 0.1 x10^3/uL (0.0-0.7) 0.2 x10^3/uL (0.0-0.7) Basophils # (Auto) 0.0 x10^3/uL (0.0-0.2) 0.0 x10^3/uL (0.0-0.2) Sodium Level 148 mmol/L (136-145) 142 mmol/L (136-145) Potassium Level 4.0 mmol/L (3.5-5.1) 4.8 mmol/L (3.5-5.1) Chloride Level 112 mmol/L (98-107) 108 mmol/L (98-107) Carbon Dioxide Level 27 mmol/L (21-32) 25 mmol/L (21-32) Anion Gap 9 (6-14) 9 (6-14) Blood Urea Nitrogen 27 mg/dL (7-20) 25 mg/dL (7-20) Creatinine 0.8 mg/dL (0.6-1.0) 0.6 mg/dL (0.6-1.0) Estimated GFR (Cockcroft-Gault) 68.5 95.5 BUN/Creatinine Ratio 34 (6-20) Glucose Level 87 mg/dL (70-99) 93 mg/dL (70-99) Calcium Level 8.3 mg/dL (8.5-10.1) 8.5 mg/dL (8.5-10.1) Phosphorus Level 2.6 mg/dL (2.6-4.7) 2.9 mg/dL (2.6-4.7) Magnesium Level 2.3 mg/dL (1.8-2.4) 1.9 mg/dL (1.8-2.4) Total Bilirubin 0.3 mg/dL (0.2-1.0) Aspartate Amino Transf (AST/SGOT) 29 U/L (15-37) Alanine Aminotransferase (ALT/SGPT) 19 U/L (14-59) Alkaline Phosphatase 117 U/L (46-116) Creatine Kinase 101 U/L (26-192) 81 U/L (26-192) Total Protein 6.9 g/dL (6.4-8.2) Albumin 2.0 g/dL (3.4-5.0) 1.9 g/dL (3.4-5.0) Albumin/Globulin Ratio 0.4 (1.0-1.7) Laboratory Tests Test 02/24/17 05:50 02/24/17 07:20 Sodium Level 142 mmol/L (136-145) Potassium Level 4.8 mmol/L (3.5-5.1) Chloride Level 108 mmol/L (98-107) Carbon Dioxide Level 25 mmol/L (21-32) Anion Gap 9 (6-14) Blood Urea Nitrogen 25 mg/dL (7-20) Creatinine 0.6 mg/dL (0.6-1.0) Estimated GFR (Cockcroft-Gault) 95.5 Glucose Level 93 mg/dL (70-99) Calcium Level 8.5 mg/dL (8.5-10.1) Phosphorus Level 2.9 mg/dL (2.6-4.7) Magnesium Level 1.9 mg/dL (1.8-2.4) Creatine Kinase 81 U/L (26-192) Albumin 1.9 g/dL (3.4-5.0) White Blood Count 9.9 x10^3/uL (4.0-11.0) Red Blood Count 3.58 x10^6/uL (3.50-5.40) Hemoglobin 10.0 g/dL (12.0-15.5) Hematocrit 30.7 % (36.0-47.0) Mean Corpuscular Volume 86 fL (79-100) Mean Corpuscular Hemoglobin 28 pg (25-35) Mean Corpuscular Hemoglobin Concent 33 g/dL (31-37) Red Cell Distribution Width 13.7 % (11.5-14.5) Platelet Count 240 x10^3/uL (140-400) Neutrophils (%) (Auto) 84 % (31-73) Lymphocytes (%) (Auto) 8 % (24-48) Monocytes (%) (Auto) 5 % (0-9) Eosinophils (%) (Auto) 2 % (0-3) Basophils (%) (Auto) 0 % (0-3) Neutrophils # (Auto) 8.4 x10^3uL (1.8-7.7) Lymphocytes # (Auto) 0.8 x10^3/uL (1.0-4.8) Monocytes # (Auto) 0.5 x10^3/uL (0.0-1.1) Eosinophils # (Auto) 0.2 x10^3/uL (0.0-0.7) Basophils # (Auto) 0.0 x10^3/uL (0.0-0.2) Medications Active Scripts Medications Dose Route/Sig Max Daily Dose Days Date Category Metoprolol Tartrate 25 Mg Tablet 12.5 Mg PO BID 02/20/17 Reported Risperdal (Risperidone) 0.5 Mg Tablet 0.5 Mg PO DAILY 02/20/17 Reported Miralax (Polyethylene Glycol 3350) 17 Gm Powd.pack 1 Pkt PO DAILY 02/20/17 Reported Vitamin D (Cholecalciferol (Vitamin D3)) 1,000 Unit Tablet 1,000 Unit PO DAILY 01/23/15 Reported Milk Of Magnesia (Magnesium Hydroxide) 400 Mg/5 Ml Oral.susp 400 Mg PO PRN PRN 01/23/15 Reported Artificial Tears (Polyvinyl Alcohol) 15 Ml Drops 2 Drop OP PRN Q4HRS PRN 01/23/15 Reported Acetaminophen 500 Mg Tablet 650 Mg PO PRN Q4HRS PRN 01/23/15 Reported Multivitamins (Multivitamin) 1 Each Tablet 1 Tab PO DAILY 01/23/15 Reported Risperidone 1 Mg Tablet 1 Tab PO HS 01/22/15 Reported Sinemet 25-100 Mg Tablet (Carbidopa/Levodopa) 1 Each Tablet 1 Tab PO TID 01/22/15 Reported Impression . PNEUMONIA LLL MET/TOXIC ENCEPHALOPATHY FEVER/ LEUKOCYTOSIS HYPERNATREMIA DEMENTIA DYSPHAGIA Plan . RESP STATUS COMPENSATED OXYGEN PRN CONTINUE ANTIBX PER ID NEPHRO RECOMMENDATIONS/ IMPROVING Na NPO ENTERAL NUTRITION POOR PROGNOSIS NOLBERTO BAHENA MD Feb 24, 2017 11:53
--- NOTE | 2017-02-24 13:22 | RAD ---
JOHN, 02/24/2017: History: Check Dobbhoff tube placement An upright view of the upper abdomen demonstrates a Dobbhoff tube extending into the body of the stomach. The abdominal gas pattern is unremarkable. There is moderate ongoing streaky atelectasis/infiltrate in the lung bases. There is a mild thoracolumbar scoliosis with moderate associated multilevel degenerative change. IMPRESSION: The Dobbhoff tube extends into the body of the stomach.
[2017-02-24 15:00] VITALS: BP 122/49
--- NOTE | 2017-02-24 15:27 | PDOC ---
PROGRESS NOTES Chief Complaint Chief Complaint cc: fever Hypernatremia POSSIBLE Pneumonia vasmotor nephropathy fever metabolic encephalopathy weakness moderate malnutrition History of Present Illness History of Present Illness more alert today, failed swallow place dobhoff today, she voiced understanding of benefits. parkinsons meds needed poor prognosis, No family available, She appears to be more nourished will continue ProcalAmine and encouraged oral intake. speech and swallow evaluation, d/w RN Continue antibiotics. may change to PO if able to take PO PT and OT Vitals Vitals Vital Signs Date Time Temp Pulse Resp B/P (MAP) Pulse Ox O2 Delivery O2 Flow Rate FiO2 02/24/17 15:00 98.5 83 16 122/49 (73) 94 Room Air 98.5 02/24/17 10:59 1.5 Physical Exam General: Alert, Other (THIN BUILT, ) Heart: Regular rate, Normal S1, Normal S2, No murmurs, Gallops Lungs: Clear Abdomen: Normal bowel sounds, Soft, No tenderness, No hepatosplenomegaly, No masses Extremities: No clubbing, No cyanosis, No edema, Normal pulses, No tenderness/ swelling Labs LABS Laboratory Tests Test 02/24/17 05:50 02/24/17 07:20 Sodium Level 142 mmol/L (136-145) Potassium Level 4.8 mmol/L (3.5-5.1) Chloride Level 108 mmol/L (98-107) Carbon Dioxide Level 25 mmol/L (21-32) Anion Gap 9 (6-14) Blood Urea Nitrogen 25 mg/dL (7-20) Creatinine 0.6 mg/dL (0.6-1.0) Estimated GFR (Cockcroft-Gault) 95.5 Glucose Level 93 mg/dL (70-99) Calcium Level 8.5 mg/dL (8.5-10.1) Phosphorus Level 2.9 mg/dL (2.6-4.7) Magnesium Level 1.9 mg/dL (1.8-2.4) Creatine Kinase 81 U/L (26-192) Albumin 1.9 g/dL (3.4-5.0) White Blood Count 9.9 x10^3/uL (4.0-11.0) Red Blood Count 3.58 x10^6/uL (3.50-5.40) Hemoglobin 10.0 g/dL (12.0-15.5) Hematocrit 30.7 % (36.0-47.0) Mean Corpuscular Volume 86 fL (79-100) Mean Corpuscular Hemoglobin 28 pg (25-35) Mean Corpuscular Hemoglobin Concent 33 g/dL (31-37) Red Cell Distribution Width 13.7 % (11.5-14.5) Platelet Count 240 x10^3/uL (140-400) Neutrophils (%) (Auto) 84 % (31-73) Lymphocytes (%) (Auto) 8 % (24-48) Monocytes (%) (Auto) 5 % (0-9) Eosinophils (%) (Auto) 2 % (0-3) Basophils (%) (Auto) 0 % (0-3) Neutrophils # (Auto) 8.4 x10^3uL (1.8-7.7) Lymphocytes # (Auto) 0.8 x10^3/uL (1.0-4.8) Monocytes # (Auto) 0.5 x10^3/uL (0.0-1.1) Eosinophils # (Auto) 0.2 x10^3/uL (0.0-0.7) Basophils # (Auto) 0.0 x10^3/uL (0.0-0.2) Review of Systems Review of Systems no pain some nausea +weakness Assessment and Plan Assessmemt and Plan dobhoff for trial of passing swallow eval. palliative care had contacted family, and PEG for feeding has been declined Problems: Comment Review of Relevant I have reviewed the following items giovanni (where applicable) has been applied. Labs Laboratory Tests Test 02/23/17 02:50 02/24/17 05:50 02/24/17 07:20 White Blood Count 10.3 x10^3/uL (4.0-11.0) 9.9 x10^3/uL (4.0-11.0) Red Blood Count 4.07 x10^6/uL (3.50-5.40) 3.58 x10^6/uL (3.50-5.40) Hemoglobin 11.3 g/dL (12.0-15.5) 10.0 g/dL (12.0-15.5) Hematocrit 35.8 % (36.0-47.0) 30.7 % (36.0-47.0) Mean Corpuscular Volume 88 fL (79-100) 86 fL (79-100) Mean Corpuscular Hemoglobin 28 pg (25-35) 28 pg (25-35) Mean Corpuscular Hemoglobin Concent 32 g/dL (31-37) 33 g/dL (31-37) Red Cell Distribution Width 13.8 % (11.5-14.5) 13.7 % (11.5-14.5) Platelet Count 289 x10^3/uL (140-400) 240 x10^3/uL (140-400) Neutrophils (%) (Auto) 85 % (31-73) 84 % (31-73) Lymphocytes (%) (Auto) 9 % (24-48) 8 % (24-48) Monocytes (%) (Auto) 5 % (0-9) 5 % (0-9) Eosinophils (%) (Auto) 1 % (0-3) 2 % (0-3) Basophils (%) (Auto) 0 % (0-3) 0 % (0-3) Neutrophils # (Auto) 8.8 x10^3uL (1.8-7.7) 8.4 x10^3uL (1.8-7.7) Lymphocytes # (Auto) 0.9 x10^3/uL (1.0-4.8) 0.8 x10^3/uL (1.0-4.8) Monocytes # (Auto) 0.5 x10^3/uL (0.0-1.1) 0.5 x10^3/uL (0.0-1.1) Eosinophils # (Auto) 0.1 x10^3/uL (0.0-0.7) 0.2 x10^3/uL (0.0-0.7) Basophils # (Auto) 0.0 x10^3/uL (0.0-0.2) 0.0 x10^3/uL (0.0-0.2) Sodium Level 148 mmol/L (136-145) 142 mmol/L (136-145) Potassium Level 4.0 mmol/L (3.5-5.1) 4.8 mmol/L (3.5-5.1) Chloride Level 112 mmol/L (98-107) 108 mmol/L (98-107) Carbon Dioxide Level 27 mmol/L (21-32) 25 mmol/L (21-32) Anion Gap 9 (6-14) 9 (6-14) Blood Urea Nitrogen 27 mg/dL (7-20) 25 mg/dL (7-20) Creatinine 0.8 mg/dL (0.6-1.0) 0.6 mg/dL (0.6-1.0) Estimated GFR (Cockcroft-Gault) 68.5 95.5 BUN/Creatinine Ratio 34 (6-20) Glucose Level 87 mg/dL (70-99) 93 mg/dL (70-99) Calcium Level 8.3 mg/dL (8.5-10.1) 8.5 mg/dL (8.5-10.1) Phosphorus Level 2.6 mg/dL (2.6-4.7) 2.9 mg/dL (2.6-4.7) Magnesium Level 2.3 mg/dL (1.8-2.4) 1.9 mg/dL (1.8-2.4) Total Bilirubin 0.3 mg/dL (0.2-1.0) Aspartate Amino Transf (AST/SGOT) 29 U/L (15-37) Alanine Aminotransferase (ALT/SGPT) 19 U/L (14-59) Alkaline Phosphatase 117 U/L (46-116) Creatine Kinase 101 U/L (26-192) 81 U/L (26-192) Total Protein 6.9 g/dL (6.4-8.2) Albumin 2.0 g/dL (3.4-5.0) 1.9 g/dL (3.4-5.0) Albumin/Globulin Ratio 0.4 (1.0-1.7) Laboratory Tests Test 02/24/17 05:50 02/24/17 07:20 Sodium Level 142 mmol/L (136-145) Potassium Level 4.8 mmol/L (3.5-5.1) Chloride Level 108 mmol/L (98-107) Carbon Dioxide Level 25 mmol/L (21-32) Anion Gap 9 (6-14) Blood Urea Nitrogen 25 mg/dL (7-20) Creatinine 0.6 mg/dL (0.6-1.0) Estimated GFR (Cockcroft-Gault) 95.5 Glucose Level 93 mg/dL (70-99) Calcium Level 8.5 mg/dL (8.5-10.1) Phosphorus Level 2.9 mg/dL (2.6-4.7) Magnesium Level 1.9 mg/dL (1.8-2.4) Creatine Kinase 81 U/L (26-192) Albumin 1.9 g/dL (3.4-5.0) White Blood Count 9.9 x10^3/uL (4.0-11.0) Red Blood Count 3.58 x10^6/uL (3.50-5.40) Hemoglobin 10.0 g/dL (12.0-15.5) Hematocrit 30.7 % (36.0-47.0) Mean Corpuscular Volume 86 fL (79-100) Mean Corpuscular Hemoglobin 28 pg (25-35) Mean Corpuscular Hemoglobin Concent 33 g/dL (31-37) Red Cell Distribution Width 13.7 % (11.5-14.5) Platelet Count 240 x10^3/uL (140-400) Neutrophils (%) (Auto) 84 % (31-73) Lymphocytes (%) (Auto) 8 % (24-48) Monocytes (%) (Auto) 5 % (0-9) Eosinophils (%) (Auto) 2 % (0-3) Basophils (%) (Auto) 0 % (0-3) Neutrophils # (Auto) 8.4 x10^3uL (1.8-7.7) Lymphocytes # (Auto) 0.8 x10^3/uL (1.0-4.8) Monocytes # (Auto) 0.5 x10^3/uL (0.0-1.1) Eosinophils # (Auto) 0.2 x10^3/uL (0.0-0.7) Basophils # (Auto) 0.0 x10^3/uL (0.0-0.2) Medications Current Medications Sodium Chloride 1,000 ml @ 100 mls/hr Q10H IV Last administered on 02/19/17t 19 :20; Start 02/19/17 at 19:00; Stop 02/20/17 at 04:59; Status DC Cefepime HCl 1 gm/ Sodium Chloride 50 ml @ 100 mls/hr Q8HRS IV ; Start 02/19/17 at 22:00; Status UNV Vancomycin HCl (Vanco Per Pharmacy) 1 each PRN DAILY PRN MC SEE COMMENTS Last administered on 02/20/17 01:14; Start 02/19/17 at 20:00; Stop 02/20/17 at 09:10; Status DC Acetaminophen (Acetaminophen Supp) 650 mg 1X ONCE OK Last administered on 20:20; Start 02/19/17 at 20:00; Stop 02/19/17 at 20:07; Status DC Vancomycin HCl 1.25 gm/Dextrose 250 ml @ 166.667 mls/hr 1X ONCE IV Last administered on 02/19/17 21:37; Start 02/19/17 at 20:15; Stop 02/19/17 at 21:44; Status DC Cefepime HCl 1 gm/ Dextrose 100 ml @ 200 mls/hr 1X ONCE IV Last administered on 02/19/17 20:20; Start 02/19/17 at 20:15; Stop 02/19/17 at 20:44; Status DC Sodium Chloride 1,000 ml @ 150 mls/hr 1X ONCE IV Last administered on 22:09; Start 02/19/17 at 20:15; Stop 02/20/17 at 02:54; Status DC Clindamycin Phosphate 480 ml @ 960 mls/hr 1X ONCE IV ; Start 02/19/17 at 20:30 ; Stop 02/19/17 at 20:59; Status UNV Clindamycin Phosphate 50 ml @ 100 mls/hr 1X ONCE IV Last administered on 20:30; Start 02/19/17 at 20:30; Stop 02/20/17 at 09:10; Status DC Acetaminophen (Tylenol) 650 mg PRN Q4HRS PRN PO MILD PAIN; Start 02/19/17 at 22: 15 Carbidopa/Levodopa (Sinemet 25/100) 1 tab TID PO ; Start 02/20/17 at 09:00 Vitamin D (Vitamin D3) 1,000 unit DAILY PO ; Start 02/20/17 at 09:00 Magnesium Hydroxide (Milk Of Magnesia) 400 mg PRN DAILY PRN PO CONSTIPATION; Start 02/19/17 at 22:15 Risperidone (RisperDAL) 1 mg BID PO ; Start 02/20/17 at 09:00 Cetirizine HCl (ZyrTEC) 10 mg DAILY PO ; Start 02/20/17 at 09:00 Multivitamins (Thera M Plus) 1 tab DAILY PO ; Start 02/20/17 at 09:00 Pantoprazole Sodium (Protonix) 40 mg DAILYAC PO ; Start 02/20/17 at 07:30 Metoprolol Tartrate (Lopressor) 12.5 mg BID PO ; Start 02/20/17 at 09:00 Vancomycin HCl 750 mg/Dextrose 250 ml @ 250 mls/hr Q48H IV ; Start 02/21/17 at 21:00; Stop 02/21/17 at 21:00; Status DC Vancomycin HCl 1 each 1X ONCE MC ; Start 02/23/17 at 20:30; Stop 02/23/17 at 20 :30; Status DC Cefepime HCl 1 gm/ Dextrose 100 ml @ 100 mls/hr Q24H IV Last administered on 19:58; Start 02/20/17 at 20:00; Stop 02/23/17 at 08:47; Status DC Sodium Chloride 1,000 ml @ 100 mls/hr Q10H IV ; Start 02/20/17 at 06:30; Stop at 16:36; Status DC Amino Acids/ Glycerin/ Electrolytes 1,000 ml @ 80 mls/hr [id number] IV Last administered on 02/24/17 13:00; Start 02/20/17 at 09:00 Magnesium Sulfate/ Dextrose 50 ml @ 25 mls/hr PRN DAILY PRN IV for Mag < 1.7 on am labs; Start 02/20/17 at 09:00 Potassium Phosphate 13.6 mmol/Sodium Chloride 254.5333 ml @ 127.... PRN Q2HRS PRN IV for Phos < WNL; Start 02/20/17 at 09:00 Sodium Chloride 1,000 ml @ 75 mls/hr [id number] IV Last administered on 02/22/17 00:31; Start 02/21/17 at 22:30; Stop 02/22/17 at 12:06; Status DC Amoxicillin/ Clavulanate Potassium (Augmentin 500/ 125mg) 1 tab BID PO ; Start 02/23/17 at 09:00; Stop 02/23/17 at 09:00; Status DC Ceftriaxone Sodium (Rocephin Im) 250 mg 1X ONCE IM Last administered on t 17:05; Start 02/23/17 at 09:00; Stop 02/23/17 at 09:01; Status DC Active Scripts Active Reported Metoprolol Tartrate 25 Mg Tablet 12.5 Mg PO BID Risperdal (Risperidone) 0.5 Mg Tablet 0.5 Mg PO DAILY Miralax (Polyethylene Glycol 3350) 17 Gm Powd.pack 1 Pkt PO DAILY Vitamin D (Cholecalciferol (Vitamin D3)) 1,000 Unit Tablet 1,000 Unit PO DAILY Milk Of Magnesia (Magnesium Hydroxide) 400 Mg/5 Ml Oral.susp 400 Mg PO PRN PRN Artificial Tears (Polyvinyl Alcohol) 15 Ml Drops 2 Drop OP PRN Q4HRS PRN Acetaminophen 500 Mg Tablet 650 Mg PO PRN Q4HRS PRN Multivitamins (Multivitamin) 1 Each Tablet 1 Tab PO DAILY Risperidone 1 Mg Tablet 1 Tab PO HS Sinemet 25-100 Mg Tablet (Carbidopa/Levodopa) 1 Each Tablet 1 Tab PO TID Vitals/I & O Vital Sign - Last 24 Hours 02/23/17 02/23/17 02/23/17 02/24/17 19:00 19:20 23:04 07:00 Temp 97.9 97.7 97.9 97.9 97.7 97.9 Pulse 83 96 70 Resp 18 18 16 B/P (MAP) 96/45 (62) 176/67 (103) 121/35 (63) Pulse Ox 91 91 93 O2 Delivery Room Air Nasal Cannula Room Air Nasal Cannula O2 Flow Rate 2.0 1.5 02/24/17 02/24/17 02/24/17 07:57 10:59 15:00 Temp 98.6 98.5 98.6 98.5 Pulse 76 83 Resp 16 16 B/P (MAP) 106/52 (70) 122/49 (73) Pulse Ox 93 94 O2 Delivery Nasal Cannula Nasal Cannula Room Air O2 Flow Rate 2.0 1.5 Intake and Output 02/23/17 02/23/17 02/24/17 15:00 23:00 07:00 Intake Total 600 ml Balance 600 ml Nutrition Consultation Dietary Evaluation: Comments: dina TF per palliative note REC: Fibersource HN @ 20 ml/hr increase by 10 ml q 8 hr to a goal rate of 40 ml/hr with 100 cc flush q 6 hr. Expected Outcomes/Goals: unknown at this time Malnutrition Findings: Body Fat Depletion (Non Severe: Mild Depletion Weight Status: Underweight THELMA KILGORE MD Feb 24, 2017 15:27
[2017-02-24 19:00] VITALS: BP 129/37
[2017-02-24 23:00] VITALS: BP 136/55
[2017-02-25 03:00] VITALS: BP 120/46
[2017-02-25] MEDS: AMINO AC 3%/ELECTROLYTE/GLYCER 1,000 ML IV SCH (03:10)
[2017-02-25 04:54] LABS: MAGNESIUM 2.1 mg/dL (1.8-2.4); PHOSPHORUS 2.7 mg/dL (2.6-4.7)
[2017-02-25 04:55] LABS: CALCIUM 8.9 mg/dL (8.5-10.1); CREATININE 0.7 mg/dL (0.6-1.0); GFR 79.9; PHOSPHORUS 2.5 mg/dL (2.6-4.7); POTASSIUM 4.3 mmol/L (3.5-5.1)
[2017-02-25 07:00] VITALS: BP 123/42
--- NOTE | 2017-02-25 08:29 | PDOC ---
Infectious Disease Note Subjective Subjective States she is doing well. Very alert. No pain Tolerating dobhoff ROS ROS GEN: Denies fevers, chills, sweats HEENT: Denies blurred vision, sore throat CV: Denies chest pain RESP: Denies shortness of air, cough GI: Denies n/v/d NEURO: Denies confusion, dizziness MSK: Denies weakness, joint pain/swelling Vital Sign Vital Signs Vital Signs Date Time Temp Pulse Resp B/P (MAP) Pulse Ox O2 Delivery O2 Flow Rate FiO2 02/25/17 08:03 Nasal Cannula 1.5 02/25/17 07:00 99.0 84 123/42 (69) 94 99.0 02/25/17 03:00 18 Physical Exam PHYSICAL EXAM GENERAL: NAD, Alert HEENT: PERRL, OC/OP- dry. Dobhoff NECK: Supple, no JVD, no LN LUNGS: Clear HEART: S1S2, no gallop, no murmur ABD: Soft, NT, no organomegaly, no rebound EXT: No edema, no cyanosis, Mitts RN STARS: Alert, oriented, no focal neurologic deficit SKIN: No rash IV: peripheral ok Labs Lab Laboratory Tests Test 02/25/17 03:05 Sodium Level 141 mmol/L (136-145) Potassium Level 4.3 mmol/L (3.5-5.1) Chloride Level 106 mmol/L (98-107) Carbon Dioxide Level 28 mmol/L (21-32) Anion Gap 7 (6-14) Blood Urea Nitrogen 23 mg/dL (7-20) Creatinine 0.7 mg/dL (0.6-1.0) Estimated GFR (Cockcroft-Gault) 79.9 Glucose Level 102 mg/dL (70-99) Calcium Level 8.9 mg/dL (8.5-10.1) Phosphorus Level 2.5 mg/dL (2.6-4.7) Magnesium Level 2.1 mg/dL (1.8-2.4) Creatine Kinase 84 U/L (26-192) Albumin 2.0 g/dL (3.4-5.0) Objective Assessment Leukocytosis - better Fever - resolved Encephalopathy - better Dehydration + MRSA Hypernatremia Renal failure - better Dementia Plan Plan of Care Dosed with Im Rocephin 02/23 has received 4 days of Abx. Will hold further abx for now supportive care F/u labs/temp CARLOS LANDEROS MD Feb 25, 2017 08:28
[2017-02-25] MEDS: CHOLECALCIFEROL (VITAMIN D3) 1,000 UNIT TABLET PO SCH (08:59)
[2017-02-25] MEDS: CARBIDOPA/LEVODOPA 25/100MG TABLET PO SCH ×3 (08:59→22:46)
[2017-02-25] MEDS: risperiDONE 1 MG TABLET. PO SCH ×2 (08:59→22:46)
[2017-02-25] MEDS: CETIRIZINE HCL 10 MG TABLET. PO SCH (08:59)
[2017-02-25] MEDS: PANTOPRAZOLE 40 MG TABLET.DR. PO SCH (08:59)
[2017-02-25] MEDS: MULTIVITAMIN with MINERAL TABLET. PO SCH (08:59)
[2017-02-25] MEDS: METOPROLOL TART IMMED RELEASE 25 MG TABLET. PO SCH ×2 (09:00→22:47)
[2017-02-25 10:40] VITALS: BP 109/45
--- NOTE | 2017-02-25 11:51 | PDOC ---
Renal-Progress Notes Subjective Notes Notes NONE History of Present Illness Hx of present illness NO CHANGE Vitals Vitals Vital Signs Date Time Temp Pulse Resp B/P (MAP) Pulse Ox O2 Delivery O2 Flow Rate FiO2 02/25/17 10:40 98.9 66 18 109/45 (66) 94 Nasal Cannula 2.0 98.9 Weight Weight [ ] I.O. Intake and Output Intake and Output 02/25/17 07:00 Intake Total 1855 ml Output Total 5 ml Balance 1850 ml Tube Feeding 1555 ml Other 300 ml Output Gastric Drainage Total 5 ml # Voids 5 # Bowel Movements 1 Labs Labs Laboratory Tests Test 02/25/17 03:05 Sodium Level 141 mmol/L (136-145) Potassium Level 4.3 mmol/L (3.5-5.1) Chloride Level 106 mmol/L (98-107) Carbon Dioxide Level 28 mmol/L (21-32) Anion Gap 7 (6-14) Blood Urea Nitrogen 23 mg/dL (7-20) Creatinine 0.7 mg/dL (0.6-1.0) Estimated GFR (Cockcroft-Gault) 79.9 Glucose Level 102 mg/dL (70-99) Calcium Level 8.9 mg/dL (8.5-10.1) Phosphorus Level 2.5 mg/dL (2.6-4.7) Magnesium Level 2.1 mg/dL (1.8-2.4) Creatine Kinase 84 U/L (26-192) Albumin 2.0 g/dL (3.4-5.0) Review of Systems Constitutional: yes: no symptom reported Physical Exam General Appearance: no apparent distress Skin: warm Respiratory: decreased breath sounds Heart: S1S2 Abdomen: soft, bowel sounds present Genitourinary: bladder flat Neurology: alert Assessment Assessment IMP CHANDU - RESOLVED HYPERNATREMIA-BETTER WITH NA 167 TO 146 FEVER-?PNA MET ENCEPHALOPATHY DEMENTIA S/P DOBHOFF PLAN CONT WITH ANTIBIOTICS STOP PPN MATIAS METZGER MD Feb 25, 2017 11:51
--- NOTE | 2017-02-25 12:58 | PDOC ---
PULMONARY PROGRESS NOTES Subjective follow some commands , more awake Vitals Vital Signs Date Time Temp Pulse Resp B/P (MAP) Pulse Ox O2 Delivery O2 Flow Rate FiO2 02/25/17 10:40 98.9 66 18 109/45 (66) 94 Nasal Cannula 2.0 98.9 General: Alert, No acute distress Lungs: Clear Cardiovascular: S1, S2 Abdomen: Soft Extremities: No Edema Skin: Warm Labs Laboratory Tests Test 02/24/17 05:50 02/24/17 07:20 02/25/17 03:05 Sodium Level 142 mmol/L (136-145) 141 mmol/L (136-145) Potassium Level 4.8 mmol/L (3.5-5.1) 4.3 mmol/L (3.5-5.1) Chloride Level 108 mmol/L (98-107) 106 mmol/L (98-107) Carbon Dioxide Level 25 mmol/L (21-32) 28 mmol/L (21-32) Anion Gap 9 (6-14) 7 (6-14) Blood Urea Nitrogen 25 mg/dL (7-20) 23 mg/dL (7-20) Creatinine 0.6 mg/dL (0.6-1.0) 0.7 mg/dL (0.6-1.0) Estimated GFR (Cockcroft-Gault) 95.5 79.9 Glucose Level 93 mg/dL (70-99) 102 mg/dL (70-99) Calcium Level 8.5 mg/dL (8.5-10.1) 8.9 mg/dL (8.5-10.1) Phosphorus Level 2.9 mg/dL (2.6-4.7) 2.5 mg/dL (2.6-4.7) Magnesium Level 1.9 mg/dL (1.8-2.4) 2.1 mg/dL (1.8-2.4) Creatine Kinase 81 U/L (26-192) 84 U/L (26-192) Albumin 1.9 g/dL (3.4-5.0) 2.0 g/dL (3.4-5.0) White Blood Count 9.9 x10^3/uL (4.0-11.0) Red Blood Count 3.58 x10^6/uL (3.50-5.40) Hemoglobin 10.0 g/dL (12.0-15.5) Hematocrit 30.7 % (36.0-47.0) Mean Corpuscular Volume 86 fL (79-100) Mean Corpuscular Hemoglobin 28 pg (25-35) Mean Corpuscular Hemoglobin Concent 33 g/dL (31-37) Red Cell Distribution Width 13.7 % (11.5-14.5) Platelet Count 240 x10^3/uL (140-400) Neutrophils (%) (Auto) 84 % (31-73) Lymphocytes (%) (Auto) 8 % (24-48) Monocytes (%) (Auto) 5 % (0-9) Eosinophils (%) (Auto) 2 % (0-3) Basophils (%) (Auto) 0 % (0-3) Neutrophils # (Auto) 8.4 x10^3uL (1.8-7.7) Lymphocytes # (Auto) 0.8 x10^3/uL (1.0-4.8) Monocytes # (Auto) 0.5 x10^3/uL (0.0-1.1) Eosinophils # (Auto) 0.2 x10^3/uL (0.0-0.7) Basophils # (Auto) 0.0 x10^3/uL (0.0-0.2) Laboratory Tests Test 02/25/17 03:05 Sodium Level 141 mmol/L (136-145) Potassium Level 4.3 mmol/L (3.5-5.1) Chloride Level 106 mmol/L (98-107) Carbon Dioxide Level 28 mmol/L (21-32) Anion Gap 7 (6-14) Blood Urea Nitrogen 23 mg/dL (7-20) Creatinine 0.7 mg/dL (0.6-1.0) Estimated GFR (Cockcroft-Gault) 79.9 Glucose Level 102 mg/dL (70-99) Calcium Level 8.9 mg/dL (8.5-10.1) Phosphorus Level 2.5 mg/dL (2.6-4.7) Magnesium Level 2.1 mg/dL (1.8-2.4) Creatine Kinase 84 U/L (26-192) Albumin 2.0 g/dL (3.4-5.0) Medications Active Scripts Medications Dose Route/Sig Max Daily Dose Days Date Category Metoprolol Tartrate 25 Mg Tablet 12.5 Mg PO BID 02/20/17 Reported Risperdal (Risperidone) 0.5 Mg Tablet 0.5 Mg PO DAILY 02/20/17 Reported Miralax (Polyethylene Glycol 3350) 17 Gm Powd.pack 1 Pkt PO DAILY 02/20/17 Reported Vitamin D (Cholecalciferol (Vitamin D3)) 1,000 Unit Tablet 1,000 Unit PO DAILY 01/23/15 Reported Milk Of Magnesia (Magnesium Hydroxide) 400 Mg/5 Ml Oral.susp 400 Mg PO PRN PRN 01/23/15 Reported Artificial Tears (Polyvinyl Alcohol) 15 Ml Drops 2 Drop OP PRN Q4HRS PRN 01/23/15 Reported Acetaminophen 500 Mg Tablet 650 Mg PO PRN Q4HRS PRN 01/23/15 Reported Multivitamins (Multivitamin) 1 Each Tablet 1 Tab PO DAILY 01/23/15 Reported Risperidone 1 Mg Tablet 1 Tab PO HS 01/22/15 Reported Sinemet 25-100 Mg Tablet (Carbidopa/Levodopa) 1 Each Tablet 1 Tab PO TID 01/22/15 Reported Impression . PNEUMONIA LLL MET/TOXIC ENCEPHALOPATHY FEVER/ LEUKOCYTOSIS HYPERNATREMIA DEMENTIA DYSPHAGIA Plan . RESP STATUS COMPENSATED OXYGEN PRN CONTINUE ANTIBX PER ID NEPHRO RECOMMENDATIONS/ IMPROVING Na NPO ENTERAL NUTRITION NOLBERTO BAHENA MD Feb 25, 2017 12:58
--- NOTE | 2017-02-25 14:35 | PDOC2 ---
PALLIATIVE CARE Palliative Care Note Palliative Care Patient more alert today. Follows some commands Dobhoff with feedings in place. Receiving meds for Parkinson Disease If no improvement, patient could return [facility]. Have discussed this with Guardian. She would prefer Hospice. THOMAS RIVERO Feb 25, 2017 14:35
--- NOTE | 2017-02-25 14:38 | PDOC ---
PROGRESS NOTES Chief Complaint Chief Complaint cc: fever Hypernatremia treating Pneumonia, possible aspiration vasmotor nephropathy fever metabolic encephalopathy weakness, severe parkinsons moderate malnutrition History of Present Illness History of Present Illness more alert today, failed swallow placed dobhoff and tolerating well poor prognosis with marked weakness - I discussed with PT and Palliative care plan for discharge should be hospice, family had mentioned [facility] try swallow eval before DC, but may try with pleasure feeds and known risk either way, her parkinsons seems end-stage, with also dementia Vitals Vitals Vital Signs Date Time Temp Pulse Resp B/P (MAP) Pulse Ox O2 Delivery O2 Flow Rate FiO2 02/25/17 10:40 98.9 66 18 109/45 (66) 94 Nasal Cannula 2.0 98.9 Physical Exam General: Alert, Other (THIN BUILT, ) Heart: Regular rate, Normal S1, Normal S2, No murmurs, Gallops Lungs: Clear Abdomen: Normal bowel sounds, Soft, No tenderness, No hepatosplenomegaly, No masses Extremities: No clubbing, No cyanosis, No edema, Normal pulses, No tenderness/ swelling Labs LABS Laboratory Tests Test 02/25/17 03:05 Sodium Level 141 mmol/L (136-145) Potassium Level 4.3 mmol/L (3.5-5.1) Chloride Level 106 mmol/L (98-107) Carbon Dioxide Level 28 mmol/L (21-32) Anion Gap 7 (6-14) Blood Urea Nitrogen 23 mg/dL (7-20) Creatinine 0.7 mg/dL (0.6-1.0) Estimated GFR (Cockcroft-Gault) 79.9 Glucose Level 102 mg/dL (70-99) Calcium Level 8.9 mg/dL (8.5-10.1) Phosphorus Level 2.5 mg/dL (2.6-4.7) Magnesium Level 2.1 mg/dL (1.8-2.4) Creatine Kinase 84 U/L (26-192) Albumin 2.0 g/dL (3.4-5.0) Review of Systems Review of Systems no n.v/d no new complaint Comment Review of Relevant I have reviewed the following items giovanni (where applicable) has been applied. Labs Laboratory Tests Test 02/24/17 05:50 02/24/17 07:20 02/25/17 03:05 Sodium Level 142 mmol/L (136-145) 141 mmol/L (136-145) Potassium Level 4.8 mmol/L (3.5-5.1) 4.3 mmol/L (3.5-5.1) Chloride Level 108 mmol/L (98-107) 106 mmol/L (98-107) Carbon Dioxide Level 25 mmol/L (21-32) 28 mmol/L (21-32) Anion Gap 9 (6-14) 7 (6-14) Blood Urea Nitrogen 25 mg/dL (7-20) 23 mg/dL (7-20) Creatinine 0.6 mg/dL (0.6-1.0) 0.7 mg/dL (0.6-1.0) Estimated GFR (Cockcroft-Gault) 95.5 79.9 Glucose Level 93 mg/dL (70-99) 102 mg/dL (70-99) Calcium Level 8.5 mg/dL (8.5-10.1) 8.9 mg/dL (8.5-10.1) Phosphorus Level 2.9 mg/dL (2.6-4.7) 2.5 mg/dL (2.6-4.7) Magnesium Level 1.9 mg/dL (1.8-2.4) 2.1 mg/dL (1.8-2.4) Creatine Kinase 81 U/L (26-192) 84 U/L (26-192) Albumin 1.9 g/dL (3.4-5.0) 2.0 g/dL (3.4-5.0) White Blood Count 9.9 x10^3/uL (4.0-11.0) Red Blood Count 3.58 x10^6/uL (3.50-5.40) Hemoglobin 10.0 g/dL (12.0-15.5) Hematocrit 30.7 % (36.0-47.0) Mean Corpuscular Volume 86 fL (79-100) Mean Corpuscular Hemoglobin 28 pg (25-35) Mean Corpuscular Hemoglobin Concent 33 g/dL (31-37) Red Cell Distribution Width 13.7 % (11.5-14.5) Platelet Count 240 x10^3/uL (140-400) Neutrophils (%) (Auto) 84 % (31-73) Lymphocytes (%) (Auto) 8 % (24-48) Monocytes (%) (Auto) 5 % (0-9) Eosinophils (%) (Auto) 2 % (0-3) Basophils (%) (Auto) 0 % (0-3) Neutrophils # (Auto) 8.4 x10^3uL (1.8-7.7) Lymphocytes # (Auto) 0.8 x10^3/uL (1.0-4.8) Monocytes # (Auto) 0.5 x10^3/uL (0.0-1.1) Eosinophils # (Auto) 0.2 x10^3/uL (0.0-0.7) Basophils # (Auto) 0.0 x10^3/uL (0.0-0.2) Laboratory Tests Test 02/25/17 03:05 Sodium Level 141 mmol/L (136-145) Potassium Level 4.3 mmol/L (3.5-5.1) Chloride Level 106 mmol/L (98-107) Carbon Dioxide Level 28 mmol/L (21-32) Anion Gap 7 (6-14) Blood Urea Nitrogen 23 mg/dL (7-20) Creatinine 0.7 mg/dL (0.6-1.0) Estimated GFR (Cockcroft-Gault) 79.9 Glucose Level 102 mg/dL (70-99) Calcium Level 8.9 mg/dL (8.5-10.1) Phosphorus Level 2.5 mg/dL (2.6-4.7) Magnesium Level 2.1 mg/dL (1.8-2.4) Creatine Kinase 84 U/L (26-192) Albumin 2.0 g/dL (3.4-5.0) Medications Current Medications Sodium Chloride 1,000 ml @ 100 mls/hr Q10H IV Last administered on 02/19/17 19 :20; Start 02/19/17 at 19:00; Stop 02/20/17 at 04:59; Status DC Cefepime HCl 1 gm/ Sodium Chloride 50 ml @ 100 mls/hr Q8HRS IV ; Start 02/19/17 at 22:00; Status UNV Vancomycin HCl (Vanco Per Pharmacy) 1 each PRN DAILY PRN MC SEE COMMENTS Last administered on 02/20/17 01:14; Start 02/19/17 at 20:00; Stop 02/20/17 at 09:10; Status DC Acetaminophen (Acetaminophen Supp) 650 mg 1X ONCE TX Last administered on 20:20; Start 02/19/17 at 20:00; Stop 02/19/17 at 20:07; Status DC Vancomycin HCl 1.25 gm/Dextrose 250 ml @ 166.667 mls/hr 1X ONCE IV Last administered on 02/19/17 21:37; Start 02/19/17 at 20:15; Stop 02/19/17 at 21:44; Status DC Cefepime HCl 1 gm/ Dextrose 100 ml @ 200 mls/hr 1X ONCE IV Last administered on 02/19/17 20:20; Start 02/19/17 at 20:15; Stop 02/19/17 at 20:44; Status DC Sodium Chloride 1,000 ml @ 150 mls/hr 1X ONCE IV Last administered on 22:09; Start 02/19/17 at 20:15; Stop 02/20/17 at 02:54; Status DC Clindamycin Phosphate 480 ml @ 960 mls/hr 1X ONCE IV ; Start 02/19/17 at 20:30 ; Stop 02/19/17 at 20:59; Status UNV Clindamycin Phosphate 50 ml @ 100 mls/hr 1X ONCE IV Last administered on 20:30; Start 02/19/17 at 20:30; Stop 02/20/17 at 09:10; Status DC Acetaminophen (Tylenol) 650 mg PRN Q4HRS PRN PO MILD PAIN; Start 02/19/17 at 22: 15 Carbidopa/Levodopa (Sinemet 25/100) 1 tab TID PO Last administered on 08:59; Start 02/20/17 at 09:00 Vitamin D (Vitamin D3) 1,000 unit DAILY PO Last administered on 02/25/17 08:59 ; Start 02/20/17 at 09:00 Magnesium Hydroxide (Milk Of Magnesia) 400 mg PRN DAILY PRN PO CONSTIPATION; Start 02/19/17 at 22:15 Risperidone (RisperDAL) 1 mg BID PO Last administered on 02/25/17 08:59; Start 02/20/17 at 09:00 Cetirizine HCl (ZyrTEC) 10 mg DAILY PO Last administered on 02/25/17 08:59; Start 02/20/17 at 09:00 Multivitamins (Thera M Plus) 1 tab DAILY PO Last administered on 02/25/17 08: 59; Start 02/20/17 at 09:00 Pantoprazole Sodium (Protonix) 40 mg DAILYAC PO Last administered on 02/25/17 08:59; Start 02/20/17 at 07:30 Metoprolol Tartrate (Lopressor) 12.5 mg BID PO Last administered on 02/25/17 09:00; Start 02/20/17 at 09:00 Vancomycin HCl 750 mg/Dextrose 250 ml @ 250 mls/hr Q48H IV ; Start 02/21/17 at 21:00; Stop 02/21/17 at 21:00; Status DC Vancomycin HCl 1 each 1X ONCE MC ; Start 02/23/17 at 20:30; Stop 02/23/17 at 20 :30; Status DC Cefepime HCl 1 gm/ Dextrose 100 ml @ 100 mls/hr Q24H IV Last administered on 19:58; Start 02/20/17 at 20:00; Stop 02/23/17 at 08:47; Status DC Sodium Chloride 1,000 ml @ 100 mls/hr Q10H IV ; Start 02/20/17 at 06:30; Stop at 16:36; Status DC Amino Acids/ Glycerin/ Electrolytes 1,000 ml @ 80 mls/hr [id number] IV Last administered on 02/25/17 03:10; Start 02/20/17 at 09:00; Stop 02/25/17 at 11:51 ; Status DC Magnesium Sulfate/ Dextrose 50 ml @ 25 mls/hr PRN DAILY PRN IV for Mag < 1.7 on am labs; Start 02/20/17 at 09:00 Potassium Phosphate 13.6 mmol/Sodium Chloride 254.5333 ml @ 127.... PRN Q2HRS PRN IV for Phos < WNL; Start 02/20/17 at 09:00 Sodium Chloride 1,000 ml @ 75 mls/hr [id number] IV Last administered on 02/22/17 00:31; Start 02/21/17 at 22:30; Stop 02/22/17 at 12:06; Status DC Amoxicillin/ Clavulanate Potassium (Augmentin 500/ 125mg) 1 tab BID PO ; Start 02/23/17 at 09:00; Stop 02/23/17 at 09:00; Status DC Ceftriaxone Sodium (Rocephin Im) 250 mg 1X ONCE IM Last administered on t 17:05; Start 02/23/17 at 09:00; Stop 02/23/17 at 09:01; Status DC Active Scripts Active Reported Metoprolol Tartrate 25 Mg Tablet 12.5 Mg PO BID Risperdal (Risperidone) 0.5 Mg Tablet 0.5 Mg PO DAILY Miralax (Polyethylene Glycol 3350) 17 Gm Powd.pack 1 Pkt PO DAILY Vitamin D (Cholecalciferol (Vitamin D3)) 1,000 Unit Tablet 1,000 Unit PO DAILY Milk Of Magnesia (Magnesium Hydroxide) 400 Mg/5 Ml Oral.susp 400 Mg PO PRN PRN Artificial Tears (Polyvinyl Alcohol) 15 Ml Drops 2 Drop OP PRN Q4HRS PRN Acetaminophen 500 Mg Tablet 650 Mg PO PRN Q4HRS PRN Multivitamins (Multivitamin) 1 Each Tablet 1 Tab PO DAILY Risperidone 1 Mg Tablet 1 Tab PO HS Sinemet 25-100 Mg Tablet (Carbidopa/Levodopa) 1 Each Tablet 1 Tab PO TID Vitals/I & O Vital Sign - Last 24 Hours 02/24/17 02/24/17 02/24/17 02/24/17 15:00 19:00 20:00 20:59 Temp 98.5 97.7 98.5 97.7 Pulse 83 78 78 Resp 16 18 B/P (MAP) 122/49 (73) 129/37 (67) 129/42 Pulse Ox 94 92 O2 Delivery Room Air Room Air Nasal Cannula O2 Flow Rate 1.5 02/24/17 02/25/17 02/25/17 02/25/17 23:00 03:00 07:00 08:03 Temp 97.3 97.9 99.0 97.3 97.9 99.0 Pulse 75 75 84 Resp 18 18 B/P (MAP) 136/55 (82) 120/46 (70) 123/42 (69) Pulse Ox 98 94 94 O2 Delivery Room Air Room Air Nasal Cannula Nasal Cannula O2 Flow Rate 2.0 1.5 02/25/17 02/25/17 09:00 10:40 Temp 98.9 98.9 Pulse 84 66 Resp 18 B/P (MAP) 123/42 109/45 (66) Pulse Ox 94 O2 Delivery Nasal Cannula O2 Flow Rate 2.0 Intake and Output 02/24/17 02/24/17 02/25/17 14:59 22:59 06:59 Intake Total 0 ml 1855 ml Output Total 5 ml Balance 0 ml 1850 ml Nutrition Consultation Dietary Evaluation: Comments: dobhoff TF per palliative note REC: Fibersource HN @ 20 ml/hr increase by 10 ml q 8 hr to a goal rate of 40 ml/hr with 100 cc flush q 6 hr. Expected Outcomes/Goals: unknown at this time Malnutrition Findings: Body Fat Depletion (Non Severe: Mild Depletion Weight Status: Underweight THELMA KILGORE MD Feb 25, 2017 14:38
[2017-02-25 15:00] VITALS: BP 125/53
[2017-02-25 19:00] VITALS: BP 119/52
--- NOTE | 2017-02-25 20:47 | RAD ---
KUB Indication: INPATIENT. DOBHOOF PLACEMENT. COMPARISON IMAGE SENT FINDINGS: A Dobbhoff catheter is seen overlying the chest. Advancement is recommended. The patient is rotated toward the left and therefore the catheter overlies the left side of the spine. IMPRESSION: Advancement of the Dobbhoff catheter is recommended. Electronically signed by: Wayne Dawn MD (02/25/2017 8:43 PM) [facility]
--- NOTE | 2017-02-25 22:34 | RAD ---
History: Dobbhoff tube placement. Comparison: Earlier February 25, 2017. Findings: AP supine abdomen radiograph. Dobbhoff tube has been advanced. The tip is likely present within the body of an elongated stomach. Bowel gas pattern is nonspecific. Retrocardiac density is seen. Impression: Dobbhoff tube has been advanced with tip now thought to project at the body of the stomach. Electronically signed by: Kelechi Cuellar MD (02/25/2017 10:31 PM) [id number]
[2017-02-25 23:00] VITALS: BP 140/55
[2017-02-26 03:00] VITALS: BP 114/69
[2017-02-26 04:40] LABS: BASO % 0 % (0-3); EOS % 2 % (0-3); LYMPH # 0.9 x10^3/uL (1.0-4.8); LYMPH % 12 % (24-48); MEAN CORPUSCULAR HEMOGLOBIN 28 pg (25-35); MEAN CORPUSCULAR HGB CONC 32 g/dL (31-37); MEAN CORPUSCULAR VOLUME 86 fL (79-100); MONO % 10 % (0-9); NEUT % 76 % (31-73); PLATELET COUNT 270 x10^3/uL (140-400); RED BLOOD COUNT 3.61 x10^6/uL (3.50-5.40); RED CELL DISTRIBUTION WIDTH 13.5 % (11.5-14.5); WHITE BLOOD COUNT 7.8 x10^3/uL (4.0-11.0)
[2017-02-26 05:19] LABS: ALBUMIN 2.1 g/dL (3.4-5.0); CALCIUM 8.3 mg/dL (8.5-10.1); CREATININE 0.7 mg/dL (0.6-1.0); GFR 79.9; PHOSPHORUS 3.1 mg/dL (2.6-4.7); POTASSIUM 4.3 mmol/L (3.5-5.1)
[2017-02-26 07:00] VITALS: BP 111/50
--- NOTE | 2017-02-26 07:50 | PDOC ---
Infectious Disease Note Subjective Subjective States she is doing well. Very alert. No pain Tolerating dobhoff ROS ROS GEN: Denies fevers, chills, sweats HEENT: Denies blurred vision, sore throat CV: Denies chest pain RESP: Denies shortness of air, cough GI: Denies n/v/d NEURO: Denies confusion, dizziness MSK: Denies weakness, joint pain/swelling Vital Sign Vital Signs Vital Signs Date Time Temp Pulse Resp B/P (MAP) Pulse Ox O2 Delivery O2 Flow Rate FiO2 02/26/17 03:00 97.6 78 28 114/69 (84) 93 Nasal Cannula 1.5 97.6 Physical Exam PHYSICAL EXAM GENERAL: NAD, Alert, coop. smiled today HEENT: PERRL, OC/OP -clear NECK: Supple, no JVD, no LN LUNGS: Clear HEART: S1S2, no gallop, no murmur ABD: Soft, NT, no organomegaly, no rebound, Dobhoff EXT: No edema, no cyanosis [employer]: Alert, oriented to name, no focal neurologic deficit SKIN: No rash IV: ok Labs Lab Laboratory Tests Test 02/26/17 03:50 White Blood Count 7.8 x10^3/uL (4.0-11.0) Red Blood Count 3.61 x10^6/uL (3.50-5.40) Hemoglobin 10.0 g/dL (12.0-15.5) Hematocrit 31.0 % (36.0-47.0) Mean Corpuscular Volume 86 fL (79-100) Mean Corpuscular Hemoglobin 28 pg (25-35) Mean Corpuscular Hemoglobin Concent 32 g/dL (31-37) Red Cell Distribution Width 13.5 % (11.5-14.5) Platelet Count 270 x10^3/uL (140-400) Neutrophils (%) (Auto) 76 % (31-73) Lymphocytes (%) (Auto) 12 % (24-48) Monocytes (%) (Auto) 10 % (0-9) Eosinophils (%) (Auto) 2 % (0-3) Basophils (%) (Auto) 0 % (0-3) Neutrophils # (Auto) 5.9 x10^3uL (1.8-7.7) Lymphocytes # (Auto) 0.9 x10^3/uL (1.0-4.8) Monocytes # (Auto) 0.8 x10^3/uL (0.0-1.1) Eosinophils # (Auto) 0.1 x10^3/uL (0.0-0.7) Basophils # (Auto) 0.0 x10^3/uL (0.0-0.2) Sodium Level 142 mmol/L (136-145) Potassium Level 4.3 mmol/L (3.5-5.1) Chloride Level 107 mmol/L (98-107) Carbon Dioxide Level 31 mmol/L (21-32) Anion Gap 4 (6-14) Blood Urea Nitrogen 22 mg/dL (7-20) Creatinine 0.7 mg/dL (0.6-1.0) Estimated GFR (Cockcroft-Gault) 79.9 Glucose Level 108 mg/dL (70-99) Calcium Level 8.3 mg/dL (8.5-10.1) Phosphorus Level 3.1 mg/dL (2.6-4.7) Creatine Kinase 59 U/L (26-192) Albumin 2.1 g/dL (3.4-5.0) Objective Assessment Leukocytosis - better Fever - resolved Encephalopathy - better Dehydration + MRSA Hypernatremia Renal failure - better Dementia Plan Plan of Care Doing well off abx ID to sign off CARLOS LANDEROS MD Feb 26, 2017 07:50
[2017-02-26] MEDS: MULTIVITAMIN with MINERAL TABLET. PO SCH (08:36)
[2017-02-26] MEDS: CARBIDOPA/LEVODOPA 25/100MG TABLET PO SCH ×3 (08:37→20:02)
[2017-02-26] MEDS: risperiDONE 1 MG TABLET. PO SCH ×2 (08:37→20:02)
[2017-02-26] MEDS: CHOLECALCIFEROL (VITAMIN D3) 1,000 UNIT TABLET PO SCH (08:37)
[2017-02-26] MEDS: METOPROLOL TART IMMED RELEASE 25 MG TABLET. PO SCH ×2 (08:37→20:02)
[2017-02-26] MEDS: PANTOPRAZOLE 40 MG TABLET.DR. PO SCH (08:37)
[2017-02-26] MEDS: CETIRIZINE HCL 10 MG TABLET. PO SCH (08:42)
--- NOTE | 2017-02-26 10:21 | PDOC ---
PROGRESS NOTES Chief Complaint Chief Complaint cc: fever Hypernatremia treating Pneumonia, possible aspiration vasmotor nephropathy fever metabolic encephalopathy weakness, severe parkinsons moderate malnutrition DNR Hospice History of Present Illness History of Present Illness álvaro in, calm Catherinetens on Chart reviewed, [facility] - CANT accept álvaro PLAN: stop labs STop PT OT since hospice DNR/DNI NEed to sort out if [facility], FAmily seems to want to cont álvaro? this CANT be done in [facility]. MIght be able to do with hospice? Kevin RN Vitals Vitals Vital Signs Date Time Temp Pulse Resp B/P (MAP) Pulse Ox O2 Delivery O2 Flow Rate FiO2 02/26/17 08:37 82 111/50 02/26/17 08:00 Nasal Cannula 3.0 02/26/17 07:00 98.2 18 96 98.2 Physical Exam General: Alert, Other (THIN BUILT, ) Heart: Regular rate, Normal S1, Normal S2, No murmurs, Gallops Lungs: Clear Abdomen: Normal bowel sounds, Soft, No tenderness, No hepatosplenomegaly, No masses Extremities: No clubbing, No cyanosis, No edema, Normal pulses, No tenderness/ swelling Labs LABS Laboratory Tests Test 02/26/17 03:50 White Blood Count 7.8 x10^3/uL (4.0-11.0) Red Blood Count 3.61 x10^6/uL (3.50-5.40) Hemoglobin 10.0 g/dL (12.0-15.5) Hematocrit 31.0 % (36.0-47.0) Mean Corpuscular Volume 86 fL (79-100) Mean Corpuscular Hemoglobin 28 pg (25-35) Mean Corpuscular Hemoglobin Concent 32 g/dL (31-37) Red Cell Distribution Width 13.5 % (11.5-14.5) Platelet Count 270 x10^3/uL (140-400) Neutrophils (%) (Auto) 76 % (31-73) Lymphocytes (%) (Auto) 12 % (24-48) Monocytes (%) (Auto) 10 % (0-9) Eosinophils (%) (Auto) 2 % (0-3) Basophils (%) (Auto) 0 % (0-3) Neutrophils # (Auto) 5.9 x10^3uL (1.8-7.7) Lymphocytes # (Auto) 0.9 x10^3/uL (1.0-4.8) Monocytes # (Auto) 0.8 x10^3/uL (0.0-1.1) Eosinophils # (Auto) 0.1 x10^3/uL (0.0-0.7) Basophils # (Auto) 0.0 x10^3/uL (0.0-0.2) Sodium Level 142 mmol/L (136-145) Potassium Level 4.3 mmol/L (3.5-5.1) Chloride Level 107 mmol/L (98-107) Carbon Dioxide Level 31 mmol/L (21-32) Anion Gap 4 (6-14) Blood Urea Nitrogen 22 mg/dL (7-20) Creatinine 0.7 mg/dL (0.6-1.0) Estimated GFR (Cockcroft-Gault) 79.9 Glucose Level 108 mg/dL (70-99) Calcium Level 8.3 mg/dL (8.5-10.1) Phosphorus Level 3.1 mg/dL (2.6-4.7) Creatine Kinase 59 U/L (26-192) Albumin 2.1 g/dL (3.4-5.0) Review of Systems Review of Systems limited - calmly confused Comment Review of Relevant I have reviewed the following items giovanni (where applicable) has been applied. Labs Laboratory Tests Test 02/25/17 03:05 02/26/17 03:50 Sodium Level 141 mmol/L (136-145) 142 mmol/L (136-145) Potassium Level 4.3 mmol/L (3.5-5.1) 4.3 mmol/L (3.5-5.1) Chloride Level 106 mmol/L (98-107) 107 mmol/L (98-107) Carbon Dioxide Level 28 mmol/L (21-32) 31 mmol/L (21-32) Anion Gap 7 (6-14) 4 (6-14) Blood Urea Nitrogen 23 mg/dL (7-20) 22 mg/dL (7-20) Creatinine 0.7 mg/dL (0.6-1.0) 0.7 mg/dL (0.6-1.0) Estimated GFR (Cockcroft-Gault) 79.9 79.9 Glucose Level 102 mg/dL (70-99) 108 mg/dL (70-99) Calcium Level 8.9 mg/dL (8.5-10.1) 8.3 mg/dL (8.5-10.1) Phosphorus Level 2.5 mg/dL (2.6-4.7) 3.1 mg/dL (2.6-4.7) Magnesium Level 2.1 mg/dL (1.8-2.4) Creatine Kinase 84 U/L (26-192) 59 U/L (26-192) Albumin 2.0 g/dL (3.4-5.0) 2.1 g/dL (3.4-5.0) White Blood Count 7.8 x10^3/uL (4.0-11.0) Red Blood Count 3.61 x10^6/uL (3.50-5.40) Hemoglobin 10.0 g/dL (12.0-15.5) Hematocrit 31.0 % (36.0-47.0) Mean Corpuscular Volume 86 fL (79-100) Mean Corpuscular Hemoglobin 28 pg (25-35) Mean Corpuscular Hemoglobin Concent 32 g/dL (31-37) Red Cell Distribution Width 13.5 % (11.5-14.5) Platelet Count 270 x10^3/uL (140-400) Neutrophils (%) (Auto) 76 % (31-73) Lymphocytes (%) (Auto) 12 % (24-48) Monocytes (%) (Auto) 10 % (0-9) Eosinophils (%) (Auto) 2 % (0-3) Basophils (%) (Auto) 0 % (0-3) Neutrophils # (Auto) 5.9 x10^3uL (1.8-7.7) Lymphocytes # (Auto) 0.9 x10^3/uL (1.0-4.8) Monocytes # (Auto) 0.8 x10^3/uL (0.0-1.1) Eosinophils # (Auto) 0.1 x10^3/uL (0.0-0.7) Basophils # (Auto) 0.0 x10^3/uL (0.0-0.2) Laboratory Tests Test 02/26/17 03:50 White Blood Count 7.8 x10^3/uL (4.0-11.0) Red Blood Count 3.61 x10^6/uL (3.50-5.40) Hemoglobin 10.0 g/dL (12.0-15.5) Hematocrit 31.0 % (36.0-47.0) Mean Corpuscular Volume 86 fL (79-100) Mean Corpuscular Hemoglobin 28 pg (25-35) Mean Corpuscular Hemoglobin Concent 32 g/dL (31-37) Red Cell Distribution Width 13.5 % (11.5-14.5) Platelet Count 270 x10^3/uL (140-400) Neutrophils (%) (Auto) 76 % (31-73) Lymphocytes (%) (Auto) 12 % (24-48) Monocytes (%) (Auto) 10 % (0-9) Eosinophils (%) (Auto) 2 % (0-3) Basophils (%) (Auto) 0 % (0-3) Neutrophils # (Auto) 5.9 x10^3uL (1.8-7.7) Lymphocytes # (Auto) 0.9 x10^3/uL (1.0-4.8) Monocytes # (Auto) 0.8 x10^3/uL (0.0-1.1) Eosinophils # (Auto) 0.1 x10^3/uL (0.0-0.7) Basophils # (Auto) 0.0 x10^3/uL (0.0-0.2) Sodium Level 142 mmol/L (136-145) Potassium Level 4.3 mmol/L (3.5-5.1) Chloride Level 107 mmol/L (98-107) Carbon Dioxide Level 31 mmol/L (21-32) Anion Gap 4 (6-14) Blood Urea Nitrogen 22 mg/dL (7-20) Creatinine 0.7 mg/dL (0.6-1.0) Estimated GFR (Cockcroft-Gault) 79.9 Glucose Level 108 mg/dL (70-99) Calcium Level 8.3 mg/dL (8.5-10.1) Phosphorus Level 3.1 mg/dL (2.6-4.7) Creatine Kinase 59 U/L (26-192) Albumin 2.1 g/dL (3.4-5.0) Medications Current Medications Sodium Chloride 1,000 ml @ 100 mls/hr Q10H IV Last administered on 02/19/17 19 :20; Start 02/19/17 at 19:00; Stop 02/20/17 at 04:59; Status DC Cefepime HCl 1 gm/ Sodium Chloride 50 ml @ 100 mls/hr Q8HRS IV ; Start 02/19/17 at 22:00; Status UNV Vancomycin HCl (Vanco Per Pharmacy) 1 each PRN DAILY PRN MC SEE COMMENTS Last administered on 02/20/17 01:14; Start 02/19/17 at 20:00; Stop 02/20/17 at 09:10; Status DC Acetaminophen (Acetaminophen Supp) 650 mg 1X ONCE IN Last administered on 20:20; Start 02/19/17 at 20:00; Stop 02/19/17 at 20:07; Status DC Vancomycin HCl 1.25 gm/Dextrose 250 ml @ 166.667 mls/hr 1X ONCE IV Last administered on 02/19/17 21:37; Start 02/19/17 at 20:15; Stop 02/19/17 at 21:44; Status DC Cefepime HCl 1 gm/ Dextrose 100 ml @ 200 mls/hr 1X ONCE IV Last administered on 02/19/17 20:20; Start 02/19/17 at 20:15; Stop 02/19/17 at 20:44; Status DC Sodium Chloride 1,000 ml @ 150 mls/hr 1X ONCE IV Last administered on 22:09; Start 02/19/17 at 20:15; Stop 02/20/17 at 02:54; Status DC Clindamycin Phosphate 480 ml @ 960 mls/hr 1X ONCE IV ; Start 02/19/17 at 20:30 ; Stop 02/19/17 at 20:59; Status UNV Clindamycin Phosphate 50 ml @ 100 mls/hr 1X ONCE IV Last administered on 20:30; Start 02/19/17 at 20:30; Stop 02/20/17 at 09:10; Status DC Acetaminophen (Tylenol) 650 mg PRN Q4HRS PRN PO MILD PAIN; Start 02/19/17 at 22: 15 Carbidopa/Levodopa (Sinemet 25/100) 1 tab TID PO Last administered on 08:37; Start 02/20/17 at 09:00 Vitamin D (Vitamin D3) 1,000 unit DAILY PO Last administered on 02/26/17 08:37 ; Start 02/20/17 at 09:00 Magnesium Hydroxide (Milk Of Magnesia) 400 mg PRN DAILY PRN PO CONSTIPATION; Start 02/19/17 at 22:15 Risperidone (RisperDAL) 1 mg BID PO Last administered on 02/26/17 08:37; Start 02/20/17 at 09:00 Cetirizine HCl (ZyrTEC) 10 mg DAILY PO Last administered on 02/26/17 08:42; Start 02/20/17 at 09:00 Multivitamins (Thera M Plus) 1 tab DAILY PO Last administered on 02/26/17 08: 36; Start 02/20/17 at 09:00 Pantoprazole Sodium (Protonix) 40 mg DAILYAC PO Last administered on 02/26/17 08:37; Start 02/20/17 at 07:30 Metoprolol Tartrate (Lopressor) 12.5 mg BID PO Last administered on 02/26/17 08:37; Start 02/20/17 at 09:00 Vancomycin HCl 750 mg/Dextrose 250 ml @ 250 mls/hr Q48H IV ; Start 02/21/17 at 21:00; Stop 02/21/17 at 21:00; Status DC Vancomycin HCl 1 each 1X ONCE MC ; Start 02/23/17 at 20:30; Stop 02/23/17 at 20 :30; Status DC Cefepime HCl 1 gm/ Dextrose 100 ml @ 100 mls/hr Q24H IV Last administered on 19:58; Start 02/20/17 at 20:00; Stop 02/23/17 at 08:47; Status DC Sodium Chloride 1,000 ml @ 100 mls/hr Q10H IV ; Start 02/20/17 at 06:30; Stop at 16:36; Status DC Amino Acids/ Glycerin/ Electrolytes 1,000 ml @ 80 mls/hr [id number] IV Last administered on 02/25/17 03:10; Start 02/20/17 at 09:00; Stop 02/25/17 at 11:51 ; Status DC Magnesium Sulfate/ Dextrose 50 ml @ 25 mls/hr PRN DAILY PRN IV for Mag < 1.7 on am labs; Start 02/20/17 at 09:00 Potassium Phosphate 13.6 mmol/Sodium Chloride 254.5333 ml @ 127.... PRN Q2HRS PRN IV for Phos < WNL; Start 02/20/17 at 09:00 Sodium Chloride 1,000 ml @ 75 mls/hr [id number] IV Last administered on 02/22/17 00:31; Start 02/21/17 at 22:30; Stop 02/22/17 at 12:06; Status DC Amoxicillin/ Clavulanate Potassium (Augmentin 500/ 125mg) 1 tab BID PO ; Start 02/23/17 at 09:00; Stop 02/23/17 at 09:00; Status DC Ceftriaxone Sodium (Rocephin Im) 250 mg 1X ONCE IM Last administered on 17:05; Start 02/23/17 at 09:00; Stop 02/23/17 at 09:01; Status DC Active Scripts Active Reported Metoprolol Tartrate 25 Mg Tablet 12.5 Mg PO BID Risperdal (Risperidone) 0.5 Mg Tablet 0.5 Mg PO DAILY Miralax (Polyethylene Glycol 3350) 17 Gm Powd.pack 1 Pkt PO DAILY Vitamin D (Cholecalciferol (Vitamin D3)) 1,000 Unit Tablet 1,000 Unit PO DAILY Milk Of Magnesia (Magnesium Hydroxide) 400 Mg/5 Ml Oral.susp 400 Mg PO PRN PRN Artificial Tears (Polyvinyl Alcohol) 15 Ml Drops 2 Drop OP PRN Q4HRS PRN Acetaminophen 500 Mg Tablet 650 Mg PO PRN Q4HRS PRN Multivitamins (Multivitamin) 1 Each Tablet 1 Tab PO DAILY Risperidone 1 Mg Tablet 1 Tab PO HS Sinemet 25-100 Mg Tablet (Carbidopa/Levodopa) 1 Each Tablet 1 Tab PO TID Vitals/I & O Vital Sign - Last 24 Hours 02/25/17 02/25/17 02/25/17 02/25/17 10:40 15:00 19:00 20:00 Temp 98.9 97.9 98.7 98.9 97.9 98.7 Pulse 66 87 86 Resp 18 20 36 B/P (MAP) 109/45 (66) 125/53 (77) 119/52 (74) Pulse Ox 94 97 92 O2 Delivery Nasal Cannula Nasal Cannula Nasal Cannula Nasal Cannula O2 Flow Rate 2.0 2.0 1.5 3.0 02/25/17 02/25/17 02/26/17 02/26/17 22:47 23:00 03:00 07:00 Temp 98.4 97.6 98.2 98.4 97.6 98.2 Pulse 83 83 78 82 Resp 30 28 18 B/P (MAP) 140/55 140/55 (83) 114/69 (84) 111/50 (70) Pulse Ox 93 93 96 O2 Delivery Nasal Cannula Nasal Cannula Nasal Cannula O2 Flow Rate 1.5 1.5 2.0 02/26/17 02/26/17 08:00 08:37 Pulse 82 B/P (MAP) 111/50 O2 Delivery Nasal Cannula O2 Flow Rate 3.0 Intake and Output 02/25/17 02/25/17 02/26/17 14:59 22:59 06:59 Intake Total 480 ml 580 ml 0 ml Output Total 0 ml 1 ml Balance 480 ml 579 ml 0 ml Nutrition Consultation Dietary Evaluation: Comments: dobhoff TF per palliative note REC: Fibersource HN @ 20 ml/hr increase by 10 ml q 8 hr to a goal rate of 40 ml/hr with 100 cc flush q 6 hr. Expected Outcomes/Goals: unknown at this time Malnutrition Findings: Body Fat Depletion (Non Severe: Mild Depletion Weight Status: Underweight LEDY KHOURY MD Feb 26, 2017 10:21
[2017-02-26 10:59] VITALS: BP 111/49
--- NOTE | 2017-02-26 11:02 | PDOC ---
PULMONARY PROGRESS NOTES Subjective no sig change Vitals Vital Signs Date Time Temp Pulse Resp B/P (MAP) Pulse Ox O2 Delivery O2 Flow Rate FiO2 02/26/17 10:59 98.3 72 18 111/49 (69) 95 Nasal Cannula 1.5 98.3 General: No acute distress Lungs: Clear Cardiovascular: S1, S2 Abdomen: Soft Extremities: No Edema Skin: Warm Labs Laboratory Tests Test 02/25/17 03:05 02/26/17 03:50 Sodium Level 141 mmol/L (136-145) 142 mmol/L (136-145) Potassium Level 4.3 mmol/L (3.5-5.1) 4.3 mmol/L (3.5-5.1) Chloride Level 106 mmol/L (98-107) 107 mmol/L (98-107) Carbon Dioxide Level 28 mmol/L (21-32) 31 mmol/L (21-32) Anion Gap 7 (6-14) 4 (6-14) Blood Urea Nitrogen 23 mg/dL (7-20) 22 mg/dL (7-20) Creatinine 0.7 mg/dL (0.6-1.0) 0.7 mg/dL (0.6-1.0) Estimated GFR (Cockcroft-Gault) 79.9 79.9 Glucose Level 102 mg/dL (70-99) 108 mg/dL (70-99) Calcium Level 8.9 mg/dL (8.5-10.1) 8.3 mg/dL (8.5-10.1) Phosphorus Level 2.5 mg/dL (2.6-4.7) 3.1 mg/dL (2.6-4.7) Magnesium Level 2.1 mg/dL (1.8-2.4) Creatine Kinase 84 U/L (26-192) 59 U/L (26-192) Albumin 2.0 g/dL (3.4-5.0) 2.1 g/dL (3.4-5.0) White Blood Count 7.8 x10^3/uL (4.0-11.0) Red Blood Count 3.61 x10^6/uL (3.50-5.40) Hemoglobin 10.0 g/dL (12.0-15.5) Hematocrit 31.0 % (36.0-47.0) Mean Corpuscular Volume 86 fL (79-100) Mean Corpuscular Hemoglobin 28 pg (25-35) Mean Corpuscular Hemoglobin Concent 32 g/dL (31-37) Red Cell Distribution Width 13.5 % (11.5-14.5) Platelet Count 270 x10^3/uL (140-400) Neutrophils (%) (Auto) 76 % (31-73) Lymphocytes (%) (Auto) 12 % (24-48) Monocytes (%) (Auto) 10 % (0-9) Eosinophils (%) (Auto) 2 % (0-3) Basophils (%) (Auto) 0 % (0-3) Neutrophils # (Auto) 5.9 x10^3uL (1.8-7.7) Lymphocytes # (Auto) 0.9 x10^3/uL (1.0-4.8) Monocytes # (Auto) 0.8 x10^3/uL (0.0-1.1) Eosinophils # (Auto) 0.1 x10^3/uL (0.0-0.7) Basophils # (Auto) 0.0 x10^3/uL (0.0-0.2) Laboratory Tests Test 02/26/17 03:50 White Blood Count 7.8 x10^3/uL (4.0-11.0) Red Blood Count 3.61 x10^6/uL (3.50-5.40) Hemoglobin 10.0 g/dL (12.0-15.5) Hematocrit 31.0 % (36.0-47.0) Mean Corpuscular Volume 86 fL (79-100) Mean Corpuscular Hemoglobin 28 pg (25-35) Mean Corpuscular Hemoglobin Concent 32 g/dL (31-37) Red Cell Distribution Width 13.5 % (11.5-14.5) Platelet Count 270 x10^3/uL (140-400) Neutrophils (%) (Auto) 76 % (31-73) Lymphocytes (%) (Auto) 12 % (24-48) Monocytes (%) (Auto) 10 % (0-9) Eosinophils (%) (Auto) 2 % (0-3) Basophils (%) (Auto) 0 % (0-3) Neutrophils # (Auto) 5.9 x10^3uL (1.8-7.7) Lymphocytes # (Auto) 0.9 x10^3/uL (1.0-4.8) Monocytes # (Auto) 0.8 x10^3/uL (0.0-1.1) Eosinophils # (Auto) 0.1 x10^3/uL (0.0-0.7) Basophils # (Auto) 0.0 x10^3/uL (0.0-0.2) Sodium Level 142 mmol/L (136-145) Potassium Level 4.3 mmol/L (3.5-5.1) Chloride Level 107 mmol/L (98-107) Carbon Dioxide Level 31 mmol/L (21-32) Anion Gap 4 (6-14) Blood Urea Nitrogen 22 mg/dL (7-20) Creatinine 0.7 mg/dL (0.6-1.0) Estimated GFR (Cockcroft-Gault) 79.9 Glucose Level 108 mg/dL (70-99) Calcium Level 8.3 mg/dL (8.5-10.1) Phosphorus Level 3.1 mg/dL (2.6-4.7) Creatine Kinase 59 U/L (26-192) Albumin 2.1 g/dL (3.4-5.0) Medications Active Scripts Medications Dose Route/Sig Max Daily Dose Days Date Category Metoprolol Tartrate 25 Mg Tablet 12.5 Mg PO BID 02/20/17 Reported Risperdal (Risperidone) 0.5 Mg Tablet 0.5 Mg PO DAILY 02/20/17 Reported Miralax (Polyethylene Glycol 3350) 17 Gm Powd.pack 1 Pkt PO DAILY 02/20/17 Reported Vitamin D (Cholecalciferol (Vitamin D3)) 1,000 Unit Tablet 1,000 Unit PO DAILY 01/23/15 Reported Milk Of Magnesia (Magnesium Hydroxide) 400 Mg/5 Ml Oral.susp 400 Mg PO PRN PRN 01/23/15 Reported Artificial Tears (Polyvinyl Alcohol) 15 Ml Drops 2 Drop OP PRN Q4HRS PRN 01/23/15 Reported Acetaminophen 500 Mg Tablet 650 Mg PO PRN Q4HRS PRN 01/23/15 Reported Multivitamins (Multivitamin) 1 Each Tablet 1 Tab PO DAILY 01/23/15 Reported Risperidone 1 Mg Tablet 1 Tab PO HS 01/22/15 Reported Sinemet 25-100 Mg Tablet (Carbidopa/Levodopa) 1 Each Tablet 1 Tab PO TID 01/22/15 Reported Impression . PNEUMONIA LLL MET/TOXIC ENCEPHALOPATHY FEVER/ LEUKOCYTOSIS/ IMPROVED HYPERNATREMIA/IMPROVED DEMENTIA DYSPHAGIA Plan . RESP STATUS COMPENSATED OXYGEN PRN CONTINUE ANTIBX PER ID NEPHRO RECOMMENDATIONS/ IMPROVING Na NPO ENTERAL NUTRITION AGREE WITH PLANS FOR HOSPICE NOLBERTO BAHENA MD Feb 26, 2017 11:02
--- NOTE | 2017-02-26 12:20 | PDOC ---
Renal-Progress Notes Subjective Notes Notes NONE History of Present Illness Hx of present illness NO CHANGE Vitals Vitals Vital Signs Date Time Temp Pulse Resp B/P (MAP) Pulse Ox O2 Delivery O2 Flow Rate FiO2 02/26/17 10:59 98.3 72 18 111/49 (69) 95 Nasal Cannula 1.5 98.3 Weight Weight [ ] I.O. Intake and Output Intake and Output 02/26/17 07:00 Intake Total 1060 ml Output Total 1 ml Balance 1059 ml Intake Oral 0 ml Tube Feeding 1060 ml Output Stool Total 1 ml Gastric Drainage Total 0 ml # Voids 6 # Bowel Movements 5 Labs Labs Laboratory Tests Test 02/26/17 03:50 White Blood Count 7.8 x10^3/uL (4.0-11.0) Red Blood Count 3.61 x10^6/uL (3.50-5.40) Hemoglobin 10.0 g/dL (12.0-15.5) Hematocrit 31.0 % (36.0-47.0) Mean Corpuscular Volume 86 fL (79-100) Mean Corpuscular Hemoglobin 28 pg (25-35) Mean Corpuscular Hemoglobin Concent 32 g/dL (31-37) Red Cell Distribution Width 13.5 % (11.5-14.5) Platelet Count 270 x10^3/uL (140-400) Neutrophils (%) (Auto) 76 % (31-73) Lymphocytes (%) (Auto) 12 % (24-48) Monocytes (%) (Auto) 10 % (0-9) Eosinophils (%) (Auto) 2 % (0-3) Basophils (%) (Auto) 0 % (0-3) Neutrophils # (Auto) 5.9 x10^3uL (1.8-7.7) Lymphocytes # (Auto) 0.9 x10^3/uL (1.0-4.8) Monocytes # (Auto) 0.8 x10^3/uL (0.0-1.1) Eosinophils # (Auto) 0.1 x10^3/uL (0.0-0.7) Basophils # (Auto) 0.0 x10^3/uL (0.0-0.2) Sodium Level 142 mmol/L (136-145) Potassium Level 4.3 mmol/L (3.5-5.1) Chloride Level 107 mmol/L (98-107) Carbon Dioxide Level 31 mmol/L (21-32) Anion Gap 4 (6-14) Blood Urea Nitrogen 22 mg/dL (7-20) Creatinine 0.7 mg/dL (0.6-1.0) Estimated GFR (Cockcroft-Gault) 79.9 Glucose Level 108 mg/dL (70-99) Calcium Level 8.3 mg/dL (8.5-10.1) Phosphorus Level 3.1 mg/dL (2.6-4.7) Creatine Kinase 59 U/L (26-192) Albumin 2.1 g/dL (3.4-5.0) Review of Systems Constitutional: yes: no symptom reported Physical Exam General Appearance: no apparent distress Skin: warm Respiratory: decreased breath sounds Heart: S1S2 Abdomen: soft, bowel sounds present Genitourinary: bladder flat Neurology: alert Assessment Assessment IMP CHANDU - RESOLVED HYPERNATREMIA-BETTER WITH NA 167 TO 146 FEVER-?PNA MET ENCEPHALOPATHY DEMENTIA S/P DOBHOFF PLAN CONT WITH ANTIBIOTICS WILL SIGN OFF MATIAS METZGER MD Feb 26, 2017 12:20
--- NOTE | 2017-02-26 14:10 | PDOC2 ---
PALLIATIVE CARE Palliative Care Note Palliative Care Spoke with [facility]. Reviewed current medical condition. Discussed option of pleasure feeding vs PEG tube. Understands patient's dementia and Parkinson Disease is reason for dysphagia. Understands even with PEG tube patient may aspirate. Risk of pleasure feedings discussed. Aspiration causing pneumonia and . Marizol will speak with staff that oversee guardianship and return call. [facility]ol remains [facility] the [facility]. Patient has been with Hospice before ([facility]) Understands that Care Home can not take patient back with Dobbhoff Feeding tube. 1440 Spoke with Nikunj WATKINS. Care Home will take patient with Dobhoff and Hospice. Dr. Flores aware of plan for discharge tomorrow. THOMAS RIVERO Feb 26, 2017 14:10
[2017-02-26 15:00] VITALS: BP 112/49
[2017-02-26 19:51] VITALS: BP 122/59
[2017-02-26 23:29] VITALS: BP 110/48
[2017-02-27 03:00] VITALS: BP 132/58
[2017-02-27 07:00] VITALS: BP 144/57
[2017-02-27] MEDS: PANTOPRAZOLE 40 MG TABLET.DR. PO SCH (07:30)
[2017-02-27] MEDS: MULTIVITAMIN with MINERAL TABLET. PO SCH (09:13)
[2017-02-27] MEDS: METOPROLOL TART IMMED RELEASE 25 MG TABLET. PO SCH (09:16)
[2017-02-27] MEDS: risperiDONE 1 MG TABLET. PO SCH (09:17)
[2017-02-27] MEDS: CHOLECALCIFEROL (VITAMIN D3) 1,000 UNIT TABLET PO SCH (09:17)
[2017-02-27] MEDS: CARBIDOPA/LEVODOPA 25/100MG TABLET PO SCH (09:17)
[2017-02-27] MEDS: CETIRIZINE HCL 10 MG TABLET. PO SCH (09:17)
--- NOTE | 2017-02-27 09:40 | PDOC ---
PULMONARY PROGRESS NOTES Subjective no sig change remains lethargic Vitals Vital Signs Date Time Temp Pulse Resp B/P (MAP) Pulse Ox O2 Delivery O2 Flow Rate FiO2 02/27/17 09:16 94 144/57 02/27/17 07:00 97.7 18 97 Nasal Cannula 2.0 97.7 General: No acute distress Lungs: Clear Cardiovascular: S1, S2 Abdomen: Soft Extremities: No Edema Skin: Warm Labs Laboratory Tests Test 02/26/17 03:50 White Blood Count 7.8 x10^3/uL (4.0-11.0) Red Blood Count 3.61 x10^6/uL (3.50-5.40) Hemoglobin 10.0 g/dL (12.0-15.5) Hematocrit 31.0 % (36.0-47.0) Mean Corpuscular Volume 86 fL (79-100) Mean Corpuscular Hemoglobin 28 pg (25-35) Mean Corpuscular Hemoglobin Concent 32 g/dL (31-37) Red Cell Distribution Width 13.5 % (11.5-14.5) Platelet Count 270 x10^3/uL (140-400) Neutrophils (%) (Auto) 76 % (31-73) Lymphocytes (%) (Auto) 12 % (24-48) Monocytes (%) (Auto) 10 % (0-9) Eosinophils (%) (Auto) 2 % (0-3) Basophils (%) (Auto) 0 % (0-3) Neutrophils # (Auto) 5.9 x10^3uL (1.8-7.7) Lymphocytes # (Auto) 0.9 x10^3/uL (1.0-4.8) Monocytes # (Auto) 0.8 x10^3/uL (0.0-1.1) Eosinophils # (Auto) 0.1 x10^3/uL (0.0-0.7) Basophils # (Auto) 0.0 x10^3/uL (0.0-0.2) Sodium Level 142 mmol/L (136-145) Potassium Level 4.3 mmol/L (3.5-5.1) Chloride Level 107 mmol/L (98-107) Carbon Dioxide Level 31 mmol/L (21-32) Anion Gap 4 (6-14) Blood Urea Nitrogen 22 mg/dL (7-20) Creatinine 0.7 mg/dL (0.6-1.0) Estimated GFR (Cockcroft-Gault) 79.9 Glucose Level 108 mg/dL (70-99) Calcium Level 8.3 mg/dL (8.5-10.1) Phosphorus Level 3.1 mg/dL (2.6-4.7) Creatine Kinase 59 U/L (26-192) Albumin 2.1 g/dL (3.4-5.0) Medications Active Scripts Medications Dose Route/Sig Max Daily Dose Days Date Category Metoprolol Tartrate 25 Mg Tablet 12.5 Mg PO BID 02/20/17 Reported Risperdal (Risperidone) 0.5 Mg Tablet 0.5 Mg PO DAILY 02/20/17 Reported Miralax (Polyethylene Glycol 3350) 17 Gm Powd.pack 1 Pkt PO DAILY 02/20/17 Reported Vitamin D (Cholecalciferol (Vitamin D3)) 1,000 Unit Tablet 1,000 Unit PO DAILY 01/23/15 Reported Milk Of Magnesia (Magnesium Hydroxide) 400 Mg/5 Ml Oral.susp 400 Mg PO PRN PRN 01/23/15 Reported Artificial Tears (Polyvinyl Alcohol) 15 Ml Drops 2 Drop OP PRN Q4HRS PRN 01/23/15 Reported Acetaminophen 500 Mg Tablet 650 Mg PO PRN Q4HRS PRN 01/23/15 Reported Multivitamins (Multivitamin) 1 Each Tablet 1 Tab PO DAILY 01/23/15 Reported Risperidone 1 Mg Tablet 1 Tab PO HS 01/22/15 Reported Sinemet 25-100 Mg Tablet (Carbidopa/Levodopa) 1 Each Tablet 1 Tab PO TID 01/22/15 Reported Impression . PNEUMONIA LLL MET/TOXIC ENCEPHALOPATHY FEVER/ LEUKOCYTOSIS/ IMPROVED HYPERNATREMIA/IMPROVED DEMENTIA DYSPHAGIA Plan . RESP STATUS COMPENSATED OXYGEN PRN ANTIBX PER ID NEPHRO RECOMMENDATIONS/ IMPROVING Na NPO ENTERAL NUTRITION AGREE WITH PLANS FOR HOSPICE NOLBERTO BAHENA MD Feb 27, 2017 09:40
[2017-02-27 11:04] VITALS: BP 131/61
--- NOTE | 2017-02-27 12:14 | PDOC3 ---
Discharge Summary Visit Information Date of Admission: Feb 19, 2017 Date of Discharge: Feb 27, 2017 Brief Hospital Course Allergies Allergies Coded Allergies Type Severity Reaction Last Updated Verified I S O L A T I O N *CONTACT* Allergy Unknown 01/26/15 Yes No Known Medication Allergies Allergy Unknown 01/26/15 Yes Vital Signs Vital Signs Date Time Temp Pulse Resp B/P (MAP) Pulse Ox O2 Delivery O2 Flow Rate FiO2 02/27/17 11:04 97.9 95 18 131/61 (84) 95 Nasal Cannula 2.0 97.9 Lab Results Laboratory Tests Test 02/26/17 03:50 White Blood Count 7.8 x10^3/uL (4.0-11.0) Red Blood Count 3.61 x10^6/uL (3.50-5.40) Hemoglobin 10.0 g/dL (12.0-15.5) Hematocrit 31.0 % (36.0-47.0) Mean Corpuscular Volume 86 fL (79-100) Mean Corpuscular Hemoglobin 28 pg (25-35) Mean Corpuscular Hemoglobin Concent 32 g/dL (31-37) Red Cell Distribution Width 13.5 % (11.5-14.5) Platelet Count 270 x10^3/uL (140-400) Neutrophils (%) (Auto) 76 % (31-73) Lymphocytes (%) (Auto) 12 % (24-48) Monocytes (%) (Auto) 10 % (0-9) Eosinophils (%) (Auto) 2 % (0-3) Basophils (%) (Auto) 0 % (0-3) Neutrophils # (Auto) 5.9 x10^3uL (1.8-7.7) Lymphocytes # (Auto) 0.9 x10^3/uL (1.0-4.8) Monocytes # (Auto) 0.8 x10^3/uL (0.0-1.1) Eosinophils # (Auto) 0.1 x10^3/uL (0.0-0.7) Basophils # (Auto) 0.0 x10^3/uL (0.0-0.2) Sodium Level 142 mmol/L (136-145) Potassium Level 4.3 mmol/L (3.5-5.1) Chloride Level 107 mmol/L (98-107) Carbon Dioxide Level 31 mmol/L (21-32) Anion Gap 4 (6-14) Blood Urea Nitrogen 22 mg/dL (7-20) Creatinine 0.7 mg/dL (0.6-1.0) Estimated GFR (Cockcroft-Gault) 79.9 Glucose Level 108 mg/dL (70-99) Calcium Level 8.3 mg/dL (8.5-10.1) Phosphorus Level 3.1 mg/dL (2.6-4.7) Creatine Kinase 59 U/L (26-192) Albumin 2.1 g/dL (3.4-5.0) Brief Hospital Course Ms. [place] is a 81 old female who presented with... Dx with the above, Stayed 7 days, but no improvement, VEry weak, minimal reserve , PAlliative consulted, FAm meet done, DNR DNI and hospice which is appropriate HOspice packet initiated\ Dw DPOA TyroneGenaro buddy rea got clogged on day of dc, ok for pleasure feeds only - to stop all PO meds,. Pt still cant swallow - maricarmen [employer] today Janna WATKINS, palliative and DPOA PT seen and examined time 40 mins Discharge Information Condition at Discharge: Comment (hospice) Disposition/Orders: D/C to Home w/ Hospice Scheduled Carbidopa/Levodopa (Sinemet 25-100 Mg Tablet), 1 TAB PO TID, (Reported) Cholecalciferol (Vitamin D3) (Vitamin D), 1,000 UNIT PO DAILY, (Reported) Metoprolol Tartrate (Metoprolol Tartrate), 12.5 MG PO BID, (Reported) Multivitamin (Multivitamins), 1 TAB PO DAILY, (Reported) Polyethylene Glycol 3350 (Miralax), 1 PKT PO DAILY, (Reported) Risperidone (Risperidone), 1 TAB PO HS, (Reported) Risperidone (Risperdal), 0.5 MG PO DAILY, (Reported) Scheduled PRN Acetaminophen (Acetaminophen), 650 MG PO PRN Q4HRS PRN for PAIN, (Reported) Magnesium Hydroxide (Milk Of Magnesia), 400 MG PO PRN PRN for CONSTIPATION, ( Reported) Polyvinyl Alcohol (Artificial Tears), 2 DROP OP PRN Q4HRS PRN for DRY EYE, ( Reported) LEDY KHOURY MD Feb 27, 2017 12:14
== END 2017-02-27 14:09 | disposition hospice, home (50) | DRG 871 ==
LOC: ER 18:23 → ED HOLD 20:50 → 6 SOUTH 23:30
PROVIDERS: ADMIT Internal Medicine; ATTEND Internal Medicine
PROC: 0DH67UZ Insertion of Feeding Device into Stomach, Via Natural or Artificial Opening (ICD-10-PCS; principal; 2017-02-25)
DX: A41.9 Sepsis, unspecified organism (principal); J18.9 Pneumonia, unspecified organism; G92 Toxic encephalopathy; E87.0 Hyperosmolality and hypernatremia; E87.1 Hypo-osmolality and hyponatremia; E44.0 Moderate protein-calorie malnutrition; Z68.1 Body mass index [BMI] 19.9 or less, adult; N17.9 Acute kidney failure, unspecified; M62.82 Rhabdomyolysis; E86.0 Dehydration; F03.90 Unspecified dementia, unspecified severity, without behavioral disturbance, psychotic disturbance, mood disturbance, and anxiety; G20 Parkinson's disease; I10 Essential (primary) hypertension; K21.9 Gastro-esophageal reflux disease without esophagitis; R13.10 Dysphagia, unspecified; Y95 Nosocomial condition; Z51.5 Encounter for palliative care; Z66 Do not resuscitate; F41.9 Anxiety disorder, unspecified; G47.00 Insomnia, unspecified
CPT/HCPCS: 36415; 51701; 71010; 74000; 80048; 80053; 80069; 81001; 82040; 82306; 82550; 82728; 83540; 83550; 83605; 83735; 83970; 84100; 84443; 84484; 85007; 85018; 85027; 85045; 87641; 93005; 96365; 96366; 96368; A6539; J0692; J0696; J3370; J3490; J7030; 92526; 92610; 99285-25